=== PATIENT | male | born 1945 | race Caucasian/White ===

== ENCOUNTER 2019-01-15 10:56 | Outpatient (CLI) | payer MEDICARE, OTHER ==
--- NOTE | 2019-01-15 15:51 | XRAY Report ---
Reason: XRAY.. Procedure Date: 01/15/2019 Accession Number: [id number] / [id number] Procedure: XR - Hip w/Pelvis 2-3V RT CPT Code: Final Report FULL RESULT: EXAM: RIGHT HIP RADIOGRAPHY EXAM DATE: 01/15/2019 12:04 PM. CLINICAL HISTORY: Right hip pain since July. COMPARISON: None. TECHNIQUE: 2 views. FINDINGS: Bones: Normal. No fractures or bone lesion. Joints: There is mild joint space narrowing of the femoroacetabular joints with marginal osteophytosis, relatively symmetric as visualized. No dislocation. Sacroiliac joints and pubic symphysis are unremarkable. Soft Tissues: Normal. No soft tissue swelling. IMPRESSION: Mild degenerative disease. RADIA
--- NOTE | 2019-01-15 15:59 | XRAY Report ---
Reason: XRAY Procedure Date: 01/15/2019 Accession Number: [id number] / [id number] Procedure: XR - Lumbar Spine Complete CPT Code: Final Report FULL RESULT: EXAM: LUMBOSACRAL SPINE RADIOGRAPHY EXAM DATE: 01/15/2019 12:04 PM. CLINICAL HISTORY: Pain in low back since July 2018. No known trauma. COMPARISONS: XR LUMBOSACRAL SPINE 4 VIEWS 05/15/2009 8:18 AM. TECHNIQUE: 4 views. FINDINGS: Alignment: No spondylolisthesis or scoliosis. Bones: Five cau-aqc-fjqabxd lumbar vertebral bodies are present. The bones are qualitatively osteopenic; this limits evaluation for underlying fractures or masses. Within these limitations no definite fracture is detected. Disks: There is mild marginal osteophytosis with relative preservation of disk spaces. Facets: There are moderate facet arthropathy changes at L4 and L5. Sacroiliac Joints: Unremarkable. Soft Tissues: Normal. The visualized bowel gas pattern is normal. IMPRESSION: Degenerative changes without overt malalignment or compression fracture. RADIA
== END 2019-01-15 10:57 | disposition home or self-care (01) ==
LOC: DI 10:56
PROVIDERS: ATTEND Internal Medicine
DX: M16.11 Unilateral primary osteoarthritis, right hip (principal); M47.816 Spondylosis without myelopathy or radiculopathy, lumbar region
CPT/HCPCS: 72110

== ENCOUNTER 2020-11-07 14:34 | Outpatient (CLI) | payer MEDICARE, OTHER ==
--- NOTE | 2020-11-07 16:39 | Ultrasound Report ---
PROCEDURE: Retroperitoneal INDICATIONS: URINARY RETENTION TECHNIQUE: Real-time scanning was performed of the kidneys and bladder, with image documentation. COMPARISON: None FINDINGS: Kidneys: Kidneys are normal in size. Right kidney measures 11.5 cm long; left kidney measures 11.7 cm long. Right renal cortical thickness is 0.9 cm; left renal cortical thickness is 1.5 cm. No taisha d masses, hydronephrosis, or nephrolithiasis. 1.4 x 1.2 x 1.5 cm cyst noted in the superior pole of l eft kidney Bladder: Pre-void bladder volume is 384 mL. Post-void residual is 105 mL. Pre-void images demonstr ate no intraluminal masses or stones. On pre-void images, both the right and left ureteral jets are noted with color Doppler interrogation. (Of note, ureteral jets may not be detectable in up to 25% o f cases due to insufficient differences in specific gravity between ureteral and bladder urine). Miscellaneous: No free pelvic fluid. IMPRESSION: 1. Mild right renal cortical atrophy. 2. No hydronephrosis. 3. Large postvoid residual urinary bladder volume of 105 cc. Reviewed by: Komal Knapp MD, PhD on 11/07/2020 4:37 PM PDT Approved by: Komal Knapp MD, PhD on 11/07/2020 4:37 PM PDT Station ID: [id number]
== END 2020-11-07 14:35 | disposition home or self-care (01) ==
LOC: DI 14:34
PROVIDERS: ATTEND Urology
DX: R33.9 Retention of urine, unspecified (principal); N26.1 Atrophy of kidney (terminal)

== ENCOUNTER 2021-07-13 08:50 | Outpatient (CLI) | payer MEDICARE, OTHER ==
--- NOTE | 2021-07-13 09:26 | XRAY Report ---
PROCEDURE: Chest 2 View X-Ray INDICATIONS: PALPITATIONS TECHNIQUE: 2 view(s) of the chest. COMPARISON: December 07, 2012 FINDINGS: SUPPORT DEVICES: None. LUNGS/PLEURA: No focal consolidation, pleural effusion or space-occupying pneumothorax. MEDIASTINUM: The cardiomediastinal silhouette is within normal limits. BONES/SOFT TISSUES: No acute abnormality. Diffuse osteopenia with mild kyphosis. IMPRESSION: 1.No acute cardiopulmonary abnormality. Reviewed by: Khoa Freedman MD on 07/13/2021 9:25 AM PDT Approved by: Khoa Freedman MD on 07/13/2021 9:25 AM PDT Station ID: [id number]
== END 2021-07-13 08:51 | disposition home or self-care (01) ==
LOC: DI 08:50
PROVIDERS: ATTEND Internal Medicine
DX: R00.2 Palpitations (principal)

== ENCOUNTER 2021-09-04 17:06 | Emergency (ER) | payer MEDICARE, OTHER ==
[2021-09-04 17:16] VITALS: BP 137/73
[2021-09-04] MEDS ORDERED: HYDROcod/ACETAM 5/325 MG TABLET PO STA (17:28)
--- NOTE | 2021-09-04 17:29 | ED Physician Documentation ---
PD HPI BACK PAIN - Stated complaint Stated Complaint: FELL OFF LADDER/HEAD INJ/RT SIDE PX - Chief complaint Chief Complaint: Trauma Ch/Bk - History obtained from History obtained from: Patient - Additional information Additional information: Yesterday mid afternoon he was up on a stepstool and missed the last step and came down on his right side. He hit his head but mostly complains of right lateral low rib pain. No other injuries. No headache. Review of Systems Ten Systems: 10 systems reviewed and negative Constitutional: reports: Reviewed and negative Throat: reports: Reviewed and negative Cardiac: reports: Reviewed and negative Respiratory: reports: Reviewed and negative PD PAST MEDICAL HISTORY - Past Medical History Past Medical History: Yes Cardiovascular: Hypertension, High cholesterol Respiratory: None Neuro: Parkinson's Endocrine/Autoimmune: None GI: None : Benign prostate hypertrophy, Kidney stones, Other HEENT: None Psych: None Musculoskeletal: None Derm: Other - Past Surgical History Past Surgical History: Yes General: Colonoscopy HEENT: Tonsil/Adenoidectomy - Present Medications Home Medications: Ambulatory Orders Medication Instructions Recorded Confirmed Carbidopa/Levodopa [Carbidopa-Levo 25 mg PO TID 06/06/14 09/04/21 ER 25-100 Tab] Lisinopril [Zestril] 10 mg PO DAILY 06/06/14 09/04/21 Metoprolol Tartrate 50 mg PO DAILY 06/06/14 09/04/21 Selegiline HCl 5 mg PO DAILY 06/06/14 09/04/21 Tamsulosin [Flomax] 0.4 mg PO DAILY 06/06/14 09/04/21 HYDROcod/ACETAM 5/325 [Lapaz 5/325] 1 - 2 tab PO Q6H PRN #15 tablet 09/04/21 - Allergies Allergies/Adverse Reactions: Allergies Allergy/AdvReac Type Severity Reaction Status Date / Time Sulfa (Sulfonamide Allergy Rash Verified 09/04/21 17:10 Antibiotics) - Social History Does the pt smoke?: No Smoking Status: Never smoker Does the pt drink ETOH?: Yes Does the pt have substance abuse?: No - Immunizations Immunizations are current?: Yes PD ED PE NORMAL - Vitals Vital signs reviewed: Yes - General General: Alert and oriented X 3, Other (Parkinsonian tremor) - HEENT HEENT: Other (Anisocoria, right pupil 3 mm, left pupil 2 mm) - Neck Neck: Supple, no meningeal sign, No bony TTP - Cardiac Cardiac: RRR, No murmur - Respiratory Respiratory: No respiratory distress, Clear bilaterally - Abdomen Abdomen: Normal bowel sounds, Soft, Non tender - Back Back: Other (Mild rib tenderness low down posterior axillary line, no midline spinal tenderness) - Derm Derm: Normal color, Warm and dry - Extremities Extremities: No edema, No calf tenderness / cord - Neuro Neuro: Alert and oriented X 3, Normal speech Results - Vitals Vitals: Vital Signs - 24 hr 09/04/21 17:12 Temperature 36.9 C Heart Rate 65 Respiratory 18 Rate Blood Pressure 137/73 H O2 Saturation 100 Oxygen O2 Source Room air - Rads (name of study) CT of the head and chest without contrast are unremarkable Radiology: EMP read contemporaneously PD MEDICAL DECISION MAKING - ED course ED course: 75-year-old gentleman with a right chest wall contusion, CT negative for rib fracture etc. CT of the head also done because of anisocoria, also no acute findings. Feeling better after hydrocodone here. Given that he is in his 70s and has Parkinson's was advised to abstain from using ladders. Departure - Departure Disposition: Home, Self Care Clinical Impression: Contusion of chest wall, Head injury Condition: Good Record reviewed to determine appropriate education?: Yes Instructions: ED Contusion Chest Wall, ED Mechanical Fall, ED Prevention Fall Prescriptions: HYDROcod/ACETAM 5/325 [Lapaz 5/325] 1 - 2 tab PO Q6H PRN #15 tablet PRN Reason: Pain Comments: I sent your prescriptions electronically to [facility] in [place]. Call your doctor to arrange a follow-up appointment, make the next available appointment. In the interim, return anytime if worse or if new symptoms develop. I am prescribing a short course of narcotic pain medication for you. These are potentially dangerous and addictive medications that should be used carefully. These medications may constipate you. Take an pxiw-nlh-naetrxb stool softener (docusate) twice daily with plenty of water while taking these medications. If you go 24 hours without a bowel movement, take uvpv-hfh-jgcafjv miralax, per package instructions. Do not drink or drive while taking these medications. If you received narcotic or sedating medications while in the emergency department, do not drive for 24 hours. Store this medication in a safe, secure place and out of reach of children. It is a violation of federal law to give or sell this medication to another person or to use in a manner other than prescribed. The ED will not refill narcotic prescriptions, including prescriptions lost or stolen. To dispose of unwanted medications: 1. [facility] at [address] in [place] has a medication drop box. They accept prescription medications (in pill form) Friday through Friday 9:00 a.m. to 5:00 p.m. 2. The [facility] accepts prescription medications (in pill form only) for disposal year round. Call for more information. 3. Contact the [facility] for the next [facility] sponsored prescription drug collection event. , [phone], or [phone]; Note that many narcotic pain relievers also contain Tylenol/acetaminophen. Please ensure that your total dose of acetaminophen from all sources does not exceed 3 g (3000 mg) per day. Discharge Date/Time: 09/04/21 18:25
--- NOTE | 2021-09-04 18:15 | CT Report ---
PROCEDURE: CHEST WO INDICATIONS: R chest injury. TECHNIQUE: Noncontrast 1mm axial images were acquired from the pulmonary apices to the posterior costophrenic an gles. Axial 5 mm soft tissue kernel reconstructions were performed as well as 8 mm axial MIP and cor onal and sagittal 5 mm reformations. For radiation dose reduction, the following was used: automate d exposure control, adjustment of mA and/or kV according to patient size. COMPARISON: None FINDINGS: Image quality: Excellent. Lungs and pleura: No acute air space opacities. 2-3 mm calcified granuloma is noted in the left lowe r lobe. No pleural effusions or pneumothorax. Central and peripheral airways are patent and normal i n caliber. Mediastinum: Heart size is normal. Atherosclerotic calcifications noted in the coronary vasculature. No pericardial effusion. No mediastinal adenopathy by size criteria. Thoracic aorta and central p ulmonary arteries are normal in size. Esophagus is normal in caliber. No hiatal hernia. Bones and chest wall: No suspicious bony lesions. No vertebral body compression fractures. Spine de generative disc disease and facet arthropathy are noted. No axillary or supraclavicular adenopathy by size criteria. The thyroid is normal in size and there are no incidental findings. Abdomen: Visualized upper abdominal solid organs and bowel loops appear normal in the absence of con trast. IMPRESSION: 1. No acute traumatic injury. 2. No pneumothorax. 3. No rib fracture. 4. Aortic injury is not excluded based on a noncontrast CT scan. Reviewed by: Komal Knapp MD, PhD on 09/04/2021 6:14 PM PDT Approved by: Komal Knapp MD, PhD on 09/04/2021 6:14 PM PDT Station ID: [id number]
--- NOTE | 2021-09-04 18:17 | CT Report ---
PROCEDURE: HEAD WO INDICATIONS: head injury TECHNIQUE: Noncontrast 4.5 mm thick angled axial sections acquired from the foramen magnum to the vertex. For r adiation dose reduction, the following was used: automated exposure control, adjustment of mA and/or kV according to patient size. COMPARISON: None. FINDINGS: Image quality: Excellent. CSF spaces: Basal cisterns are patent. No extra-axial fluid collections. Ventricles are normal in size and shape. Brain: No midline shift. No intracranial masses or hemorrhage. Rivers-white matter interface is norm al. Skull and face: Calvarium and visualized facial bones are intact, without suspicious lesions. Sinuses: Visualized sinuses and mastoids are clear. IMPRESSION: No acute intracranial disease process. Reviewed by: Komal Knapp MD, PhD on 09/04/2021 6:16 PM PDT Approved by: Komal Knapp MD, PhD on 09/04/2021 6:16 PM PDT Station ID: [id number]
== END 2021-09-04 18:25 | disposition home or self-care (01) ==
LOC: ED 17:06
DX: S09.90XA Unspecified injury of head, initial encounter (principal); S20.219A Contusion of unspecified front wall of thorax, initial encounter; W11.XXXA Fall on and from ladder, initial encounter; I10 Essential (primary) hypertension
CPT/HCPCS: 70450; 71250; 99283; 99284; A9270

== ENCOUNTER 2022-05-24 07:41 | Day surgery (SDC) | payer MEDICARE, OTHER ==
[2022-05-24] MEDS ORDERED: LACTATED RINGERS 1,000 ML IV ONE (08:08)
[2022-05-24] MEDS ORDERED: PROPOFOL 500 MG/50 ML 500 MG/50 ML VIAL ONE (09:02)
--- NOTE | 2022-05-24 09:14 | ANESTHESIA ---
Pre-Anesthesia VS, & Labs - Diagnosis screening - Procedure colonoscopy Vital Signs: Temp Pulse Resp BP Pulse Ox O2 Flow Rate 36.3 C L 82 16 171/89 H 98 05/24/22 08:08 05/24/22 08:08 05/24/22 08:08 05/24/22 08:08 05/24/22 08:08 Height: 5 ft 10 in Weight (kg): 67 kg Body Mass Index: 21.2 BMI Classification: Normal - NPO >8 hours Home Medications and Allergies Home Medications: Ambulatory Orders Carbidopa/Levodopa 25/100 [Sinemet 25 mg/100 mg] 1.5 tab PO TID 05/21/22 Entacapone [Comtan] 200 mg PO TID 05/21/22 Lisinopril [Zestril] 5 mg PO DAILY 06/06/14 Metoprolol Tartrate 50 mg PO DAILY 06/06/14 Selegiline HCl 5 mg PO DAILY 06/06/14 Tamsulosin [Flomax] 0.4 mg PO DAILY 06/06/14 Carbidopa/Levodopa 25/100 [Sinemet 25 mg/100 mg] 1.5 tab PO TID 05/21/22 Entacapone [Comtan] 200 mg PO TID 05/21/22 Allergies/Adverse Reactions: Allergies Allergy/AdvReac Type Severity Reaction Status Date / Time Sulfa (Sulfonamide Allergy Rash Verified 09/04/21 17:10 Antibiotics) Anes History & Medical History - Anesthetic History Anesthesia Complications: reports: No previous complications - Medical History Cardiovascular: reports: Hypertension, High cholesterol Pulmonary: reports: None Gastrointestinal: reports: Colon polyps, Chronic constipation Urinary: reports: Benign prostate hypertrophy Neuro: reports: Parkinson's Musculoskeletal: reports: None Endocrine/Autoimmune: reports: None Skin: reports: Other Smoking Status: Never smoker - Surgical History General: reports: Colonoscopy Eyes Ears Nose Throat (EENT): reports: Tonsil/Adenoidectomy Exam General: Alert, Oriented x3, Cooperative Dental: Poor dentition Mouth Opening: Greater than 4 Fingerbreadths Neck Mobility: Normal Mallampati classification: II Thyromental Distance: greater than 6 cm Respiratory: Lungs clear Cardiovascular: Regular rate Plan Anesthesia Type: Total IV Consent for Procedure(s) Verified and Reviewed: Yes Code Status: Attempt Resuscitation ASA classification: 3-Severe systemic disease Is this case an emergency?: No
[2022-05-24] MEDS ORDERED: LACTATED RINGERS 600 ML IV ONE (09:57)
--- NOTE | 2022-05-24 10:16 | ANESTHESIA POST OP EVALUATION ---
Anesthesia Post Eval - Post Anesthesia Eval Vitals: Last Vital Signs Temp 36.2 C L 05/24/22 10:12 Pulse 62 05/24/22 10:12 Resp 14 05/24/22 10:12 BP 112/81 H 05/24/22 10:12 Pulse Ox 100 05/24/22 10:12 O2 Flow Rate CV Function Including HR & BP: Stable Pain Control: Satisfactory Nausea & Vomiting: Negative Mental Status: Baseline Respiratory Status: Airway Patent Hydration Status: Satisfactory Anesthesia Complications: None
[2022-05-24 11:00] VITALS: BP 115/73
== END 2022-05-24 07:42 | disposition home or self-care (01) ==
LOC: SDS 07:41
PROVIDERS: ATTEND Surgery
DX: Z12.11 Encounter for screening for malignant neoplasm of colon (principal); I10 Essential (primary) hypertension; G20 Parkinson's disease
CPT/HCPCS: G0121; J7120

== ENCOUNTER 2022-05-27 15:21 | Outpatient (CLI) | payer MEDICARE, OTHER | END 2022-05-27 15:22 | disposition critical access hospital (66) | LOC: EMS 15:21 | DX: R07.9 Chest pain, unspecified (principal); R11.2 Nausea with vomiting, unspecified; I48.91 Unspecified atrial fibrillation | CPT/HCPCS: A0425; A0427 ==

== ENCOUNTER 2022-05-27 15:35 | Inpatient (IN) | payer MEDICARE, OTHER ==
[2022-05-27 16:06] LABS: BASOPHILS # (AUTO) 0.1 10^3/uL (0.0-0.1); BASOPHILS % (AUTO) 0.8 %; EOSINOPHILS # (AUTO) 0.2 10^3/uL (0.0-0.7); EOSINOPHILS % (AUTO) 2.7 %; HCT - HEMATOCRIT 39.7 % (42.0-52.0); HGB - HEMOGLOBIN 12.8 g/dL (14.0-18.0); LYMPHOCYTES # (AUTO) 1.5 10^3/uL (1.5-3.5); LYMPHOCYTES % (AUTO) 22.9 %; MEAN CORPUSCULAR HEMOGLOBIN 30.2 pg (27.0-31.0); MEAN CORPUSCULAR HGB CONC 32.2 g/dL (32.0-36.0); MEAN CORPUSCULAR VOLUME 93.6 fL (80.0-94.0); MEAN PLATELET VOLUME 8.7 fL (7.4-11.4); MONOCYTES # (AUTO) 0.6 10^3/uL (0.0-1.0); MONOCYTES % (AUTO) 8.3 %; NEUTROPHILS # (AUTO) 4.3 10^3/uL (1.5-6.6); PLT - PLATELET COUNT 207 10^3/uL (130-450); RED BLOOD COUNT 4.24 10^6/uL (4.70-6.10); RED CELL DISTRIBUTION WIDTH 12.5 % (12.0-15.0); WHITE BLOOD COUNT 6.6 x10^3/uL (4.8-10.8)
--- NOTE | 2022-05-27 16:07 | XRAY Report ---
PROCEDURE: Chest 1 View X-Ray INDICATIONS: Chest Pain TECHNIQUE: One view of the chest was acquired. COMPARISON: None. FINDINGS: Surgical changes and devices: None. Lungs and pleura: No pleural effusions or pneumothorax. Lungs are clear. Mediastinum: Mediastinal contours appear normal. Heart size is normal. Bones and chest wall: No suspicious bony lesions. Overlying soft tissues appear unremarkable. IMPRESSION: No acute cardiopulmonary process demonstrated radiographically. Reviewed by: Nicholas Rich MD on 05/27/2022 4:06 PM PDT Approved by: Nicholas Rich MD on 05/27/2022 4:06 PM PDT Station ID: [id number]
[2022-05-27 16:19] LABS: ALBUMIN 3.6 g/dL (3.2-5.5); ALBUMIN/GLOBULIN RATIO 1.5 (1.0-2.2); BILIRUBIN,TOTAL 0.7 mg/dL (0.2-1.0); CALCIUM 8.8 mg/dL (8.5-10.3); POTASSIUM 4.2 mmol/L (3.5-5.0)
--- OUTSIDE RECORDS SUMMARY | 2022-05-27 16:29 | EXTERNAL MEDICAL SUMMARY RPT | Continuity of Care Document ---
:1945 Author Organization [facility] Address [address] [place] [address] Phone Care Team Providers Name Role Phone Unavailable Unavailable Unavailable Jesus Patient Registrar, Sacha Unavailable Janet Veras Ma Unavailable Unavailable Jesus Patient Registrar, Sacha Unavailable Garrett Lee Patient Registrar, [place] Unavailable Janet Veras Ma Unavailable Unavailable Allergies No information. Encounters No information. Functional Status No information. Immunizations No information. Medications date description facility 2022-05-01 00:00 tamsulosin All 2022-05-01 00:00 tamsulosin All 2022-05-01 00:00 tamsulosin All 2022-05-01 00:00 tamsulosin All 2022-05-02 00:00 tamsulosin All 2022-05-01 00:00 tamsulosin All 2022-05-01 00:00 tamsulosin All 2022-05-01 00:00 tamsulosin All 2022-05-01 00:00 tamsulosin All 2022-05-02 00:00 tamsulosin All 2022-05-01 00:00 peg 3350-electrolytes All 2022-05-01 00:00 peg 3350-electrolytes All 2022-05-01 00:00 peg 3350-electrolytes All 2022-05-01 00:00 peg 3350-electrolytes All 2022-05-01 00:00 tamsulosin All 2022-05-01 00:00 tamsulosin All 2022-05-01 00:00 tamsulosin All 2022-05-01 00:00 tamsulosin All 2022-05-02 00:00 tamsulosin All 2022-05-01 00:00 tamsulosin All 2022-05-01 00:00 tamsulosin All 2022-05-01 00:00 tamsulosin All 2022-05-01 00:00 tamsulosin All 2022-05-02 00:00 tamsulosin All 2022-05-01 00:00 peg 3350-electrolytes All 2022-05-01 00:00 peg 3350-electrolytes All 2022-05-01 00:00 peg 3350-electrolytes All 2022-05-01 00:00 peg 3350-electrolytes All 2022-05-01 00:00 carbidopa-levodopa All 2022-05-01 00:00 carbidopa-levodopa All 2022-05-01 00:00 carbidopa-levodopa All 2022-05-01 00:00 carbidopa-levodopa All 2022-05-02 00:00 carbidopa-levodopa All Problems No information. Procedures date description facility 2022-05-01 00:00 Visit Code Hold All 2022-05-01 00:00 Visit Code Hold All 2022-05-01 00:00 Visit Code Hold All Results/Labs No information. Social History No information. Vital Signs date measurement value units 2022-05-01 00:00 BMI 21.60 kg/m2 2022-05-01 00:00 BP_diastolic 89 mmHg 2022-05-01 00:00 BP_systolic 158 mmHg 2022-05-01 00:00 heart_rate 72 /min 2022-05-01 00:00 height_metric 177.8 cm 2022-05-01 00:00 height_standard 70 in 2022-05-01 00:00 respiration_rate 16 /min 2022-05-01 00:00 temperature_metric 36.56 C 2022-05-01 00:00 temperature_standard 97.8 F 2022-05-01 00:00 weight_metric 68.04 kg 2022-05-01 00:00 weight_standard 150 lb
[2022-05-27] MEDS ORDERED: diltiaZEM INJ 5 MG/ML VIAL IVP STA ×2 (17:05→20:30)
--- NOTE | 2022-05-27 17:08 | ED Physician Documentation ---
History of Present Illness - Stated complaint Stated Complaint: CP - Chief complaint Chief Complaint: Cardiac - History obtained from History obtained from: Patient, EMS - History of Present Illness Timing: Today Pain level max: 3 Pain level now: 0 - Additonal information Additional information: 76-year-old male with a history of hypertension and Parkinson's disease presents to the emergency department stating that about 3 hours prior to arrival he had about 20 minutes worth of epigastric/lower chest pain. Described as a squeezing. Nothing made it better or worse. No difficulty breathing. No nausea or vomiting. No sweating. Has not had similar symptoms previously. Patient was found to be in atrial fibrillation with rapid ventricular response. He denies any history of A-fib. Currently asymptomatic. He is not on blood thinners. Review of Systems Constitutional: denies: Fever, Chills Nose: denies: Rhinorrhea / runny nose, Congestion GI: denies: Vomiting Skin: denies: Rash Musculoskeletal: denies: Neck pain, Back pain Neurologic: denies: Headache PD PAST MEDICAL HISTORY - Past Medical History Cardiovascular: Hypertension, High cholesterol Respiratory: None Neuro: Parkinson's Endocrine/Autoimmune: None GI: Colon polyps, Chronic constipation : Benign prostate hypertrophy HEENT: None Psych: None Musculoskeletal: None Derm: Other - Past Surgical History Past Surgical History: Yes General: Colonoscopy HEENT: Tonsil/Adenoidectomy - Present Medications Home Medications: Ambulatory Orders Medication Instructions Recorded Confirmed Lisinopril [Zestril] 5 mg PO DAILY 06/06/14 05/24/22 Metoprolol Tartrate 50 mg PO DAILY 06/06/14 05/24/22 Selegiline HCl 5 mg PO DAILY 06/06/14 05/24/22 Tamsulosin [Flomax] 0.4 mg PO DAILY 06/06/14 05/24/22 Carbidopa/Levodopa 25/100 [Sinemet 1.5 tab PO TID 05/21/22 05/24/22 25 mg/100 mg] Entacapone [Comtan] 200 mg PO TID 05/21/22 05/24/22 - Allergies Allergies/Adverse Reactions: Allergies Allergy/AdvReac Type Severity Reaction Status Date / Time Sulfa (Sulfonamide Allergy Rash Verified 05/27/22 15:47 Antibiotics) - Social History Does the pt smoke?: No Smoking Status: Never smoker Does the pt drink ETOH?: Yes Does the pt have substance abuse?: No - Immunizations Immunizations are current?: Yes PD ED PE NORMAL - Vitals Vital signs reviewed: Yes - General General: Alert and oriented X 3, No acute distress - HEENT HEENT: Moist mucous membranes - Neck Neck: Supple, no meningeal sign - Cardiac Cardiac: Strong equal pulses, Other (Irregularly irregular) - Respiratory Respiratory: No respiratory distress, Clear bilaterally - Abdomen Abdomen: Soft, Non tender, Non distended - Derm Derm: Warm and dry - Neuro Neuro: Alert and oriented X 3 - Psych Psych: Normal mood, Normal affect Results - Vitals Vitals: Vital Signs - 24 hr 05/27/22 05/27/22 05/27/22 15:47 16:15 17:13 Temperature 36.7 C Heart Rate 138 H 145 H 95 Respiratory 20 10 L 19 Rate Blood Pressure 123/90 H 116/85 H 95/57 L O2 Saturation 100 100 100 05/27/22 19:00 Temperature Heart Rate 142 H Respiratory 14 Rate Blood Pressure 107/77 O2 Saturation 99 Oxygen O2 Source Room air - EKG (time done) 1542 EKG releavant findings:: EKG personally interpreted by author of this note. Relevant findings are: Rate: Rate (enter#) (143) Rhythm: Atrial fibrillation [place]: Normal QRS: Normal Ischemia: Normal ST segments - Labs Labs: Laboratory Tests 05/27/22 05/27/22 05/27/22 16:01 16:01 16:01 WBC 6.6 RBC 4.24 L Hgb 12.8 L Hct 39.7 L MCV 93.6 MCH 30.2 MCHC 32.2 RDW 12.5 Plt Count 207 MPV 8.7 Neut # (Auto) 4.3 Lymph # (Auto) 1.5 [place] # (Auto) 0.6 Eos # (Auto) 0.2 Baso # (Auto) 0.1 Absolute Nucleated RBC 0.00 Nucleated RBC % 0.0 D-Dimer Sodium 141 Potassium 4.2 Chloride 107 Carbon Dioxide 29 Anion Gap 5.0 L BUN 14 Creatinine 1.0 Estimated GFR (MDRD) 73 L Glucose 112 H Calcium 8.8 Total Bilirubin 0.7 AST 22 ALT 10 Alkaline Phosphatase 42 Troponin I High Sens 5.4 Total Protein 6.0 L Albumin 3.6 Globulin 2.4 Albumin/Globulin Ratio 1.5 Lipase 42 05/27/22 05/27/22 16:01 18:45 WBC RBC Hgb Hct MCV MCH MCHC RDW Plt Count MPV Neut # (Auto) Lymph # (Auto) [place] # (Auto) Eos # (Auto) Baso # (Auto) Absolute Nucleated RBC Nucleated RBC % D-Dimer 251.1 Sodium Potassium Chloride Carbon Dioxide Anion Gap BUN Creatinine Estimated GFR (MDRD) Glucose Calcium Total Bilirubin AST ALT Alkaline Phosphatase Troponin I High Sens 16.0 Total Protein Albumin Globulin Albumin/Globulin Ratio Lipase - Rads (name of study) Chest x-ray Relevant Findings:: Final report received, See rad report PD Medical Decision Making - ED course Complexity details: reviewed results, re-evaluated patient, considered differential (No ST elevation CA, no aortic dissection, no PE, no tension pneumothorax, no aortic aneurysm), d/w patient, d/w personal consultant ED course: 76-year-old male with a history of Parkinson's presents to the emergency department with new onset atrial fibrillation with rapid ventricular response. He did respond to diltiazem but did end up requiring a diltiazem drip for continued rate control. Negative high-sensitivity troponin x2. No significant electrolyte abnormalities. No significant abnormalities other than a mild anemia on CBC. D-dimer is negative for age-adjusted. Due to the continued need for diltiazem drip, we will admit the patient for further care. Discussed the case with the hospitalist, who accepts. This document was made in part using voice recognition software. While efforts are made to proofread this document, sound alike and grammatical errors may occur. Departure - Departure Disposition: 66 [facility] DC/Xfer Clinical Impression: New onset a-fib, Atrial fibrillation with RVR Condition: Stable Discharge Date/Time: 05/27/22 22:46
[2022-05-27] MEDS ORDERED: diltiaZEM INJ 125 MG in DEXTROSE 5% 100 ML IV STA (20:30)
[2022-05-27] MEDS ORDERED: diltiaZEM INJ 5 MG/ML VIAL ONE (20:36)
[2022-05-27] MEDS ORDERED: HYDROcod/ACETAM 10 MG/325 MG TABLET PO PRN (21:09)
[2022-05-27] MEDS ORDERED: IBUPROFEN 400 MG TABLET PO PRN (21:09)
[2022-05-27] MEDS ORDERED: ONDANSETRON 4 MG/2 ML VIAL IVP PRN (21:09)
[2022-05-27] MEDS ORDERED: SODIUM CHLORIDE FLUSH 0.9% 10 ML SYRINGE IVP PRN (21:09)
[2022-05-27] MEDS ORDERED: ACETAMINOPHEN 325 MG TABLET PO PRN (21:09)
--- NOTE | 2022-05-27 21:22 | HISTORY & PHYSICAL EXAMINATION ---
Chief Complaint - Chief Complaint Chief Complaint: Irregular heart feat, Palpitations, weakness and generalized fatigue History of Present Illness - Admitted From Admitted From:: Home - History Obtained From Records Reviewed: Yes History obtained from: Patient and Staff from ER Exam Limitations: Telemeedicine - History of Present Illness HPI Comment/Other: 76-year-old male with a history of hypertension and Parkinson's disease presents to the emergency department stating that about 3 hours prior to arrival he had a bout 20 minutes worth of epigastric/lower chest pain. Described as a squeezing. Nothing made it better or worse. No difficulty breathing. No nausea or vomiting. No sweating. Has not had similar symptoms previously. Patient was found to be in atrial fibrillation with rapid ventricular response. He denies any history of A-fib. Currently asymptomatic. He is not on blood thinner. Stacey johnson with his , no major cardiac issues in past and no medical prolem in past, feels well. used to work in [employer] , has 2 kids yr and 31 year, is doig well with no other concerns or complaints History - Past Medical History Cardiovascular: reports: Hypertension, High cholesterol Respiratory: reports: None Neuro: reports: Parkinson's Endocrine/Autoimmune: reports: None GI: reports: Colon polyps, Chronic constipation : reports: Benign prostate hypertrophy HEENT: reports: None Psych: reports: None Musculoskeletal: reports: None Derm: reports: Other MRSA Hx?: No - Past Surgical History General: reports: Colonoscopy HEENT: reports: Tonsil/Adenoidectomy Meds/Allgy - Home Medications Home Medications: Ambulatory Orders Medication Instructions Recorded Confirmed Lisinopril [Zestril] 5 mg PO DAILY 06/06/14 05/24/22 Metoprolol Tartrate 50 mg PO DAILY 06/06/14 05/24/22 Selegiline HCl 5 mg PO DAILY 06/06/14 05/24/22 Tamsulosin [Flomax] 0.4 mg PO DAILY 06/06/14 05/24/22 Carbidopa/Levodopa 25/100 [Sinemet 1.5 tab PO TID 05/21/22 05/24/22 25 mg/100 mg] Entacapone [Comtan] 200 mg PO TID 05/21/22 05/24/22 - Allergies Allergies/Adverse Reactions: Allergies Allergy/AdvReac Type Severity Reaction Status Date / Time Sulfa (Sulfonamide Allergy Rash Verified 05/27/22 15:47 Antibiotics) Review of Systems - Constitutional Constitutional: reports: Fatigue, Fever, Weakness - Cardiovascular Cariovascular: reports: Palpitations, Chest pain Prior Level of Functionality: Patietn is independent Exam - Vital Signs Vital Signs: Vital Signs x48h Temp Pulse Resp BP Pulse Ox 05/27/22 19:00 142 H 14 107/77 99 05/27/22 17:13 95 19 95/57 L 100 05/27/22 16:15 145 H 10 L 116/85 H 100 05/27/22 15:47 36.7 C 138 H 20 123/90 H 100 - Physical Exam General Appearance: positive: No acute distress, Alert Eyes Bilateral: positive: Normal inspection ENT: positive: ENT inspection nml, Pharynx nml Neck: positive: Nml inspection, Thyroid nml Respiratory: positive: Chest non-tender, No respiratory distress, Breath sounds nml Cardiovascular: positive: Regular rate & rhythm, No murmur, No gallop, Irregularly irregular, Tachycardia Conclusion/Plan - Lab Results Fish Bones: 05/27/22 16:01 05/27/22 16:01
--- NOTE | 2022-05-27 21:48 | PROVIDER PROGRESS NOTE ---
Objective - Vital Signs/Intake & Output Vital Signs: Vital Signs x48h Temp Pulse Resp BP Pulse Ox 05/27/22 19:00 142 H 14 107/77 99 05/27/22 17:13 95 19 95/57 L 100 05/27/22 16:15 145 H 10 L 116/85 H 100 05/27/22 15:47 36.7 C 138 H 20 123/90 H 100 - Lab Results Fish Bones: 05/27/22 16:01 05/27/22 16:01 Other Labs: Lab Results x24hrs 05/27/22 05/27/22 05/27/22 Range/Units 18:45 16:01 16:01 WBC (4.8-10.8) x10^3/uL RBC (4.70-6.10) 10^6/uL Hgb (14.0-18.0) g/dL Hct (42.0-52.0) % MCV (80.0-94.0) fL MCH (27.0-31.0) pg MCHC (32.0-36.0) g/dL RDW (12.0-15.0) % Plt Count (130-450) 10^3/uL MPV (7.4-11.4) fL Neut # (Auto) (1.5-6.6) 10^3/uL Lymph # (Auto) (1.5-3.5) 10^3/uL [place] # (Auto) (0.0-1.0) 10^3/uL Eos # (Auto) (0.0-0.7) 10^3/uL Baso # (Auto) (0.0-0.1) 10^3/uL Absolute Nucleated RBC x10^3/uL Nucleated RBC % /100WBC D-Dimer 251.1 (200.0-255.0) ng/mL Sodium (135-145) mmol/L Potassium (3.5-5.0) mmol/L Chloride (101-111) mmol/L Carbon Dioxide (21-32) mmol/L Anion Gap (6-13) BUN (6-20) mg/dL Creatinine (0.6-1.2) mg/dL Estimated GFR (MDRD) (>89) Glucose (70-100) mg/dL Calcium (8.5-10.3) mg/dL Total Bilirubin (0.2-1.0) mg/dL AST (10-42) IU/L ALT (10-60) IU/L Alkaline Phosphatase (42-121) IU/L Troponin I High Sens 16.0 5.4 (2.3-19.7) ng/L Total Protein (6.7-8.2) g/dL Albumin (3.2-5.5) g/dL Globulin (2.1-4.2) g/dL Albumin/Globulin Ratio (1.0-2.2) Lipase (22-51) U/L 05/27/22 05/27/22 Range/Units 16:01 16:01 WBC 6.6 (4.8-10.8) x10^3/uL RBC 4.24 L (4.70-6.10) 10^6/uL Hgb 12.8 L (14.0-18.0) g/dL Hct 39.7 L (42.0-52.0) % MCV 93.6 (80.0-94.0) fL MCH 30.2 (27.0-31.0) pg MCHC 32.2 (32.0-36.0) g/dL RDW 12.5 (12.0-15.0) % Plt Count 207 (130-450) 10^3/uL MPV 8.7 (7.4-11.4) fL Neut # (Auto) 4.3 (1.5-6.6) 10^3/uL Lymph # (Auto) 1.5 (1.5-3.5) 10^3/uL [place] # (Auto) 0.6 (0.0-1.0) 10^3/uL Eos # (Auto) 0.2 (0.0-0.7) 10^3/uL Baso # (Auto) 0.1 (0.0-0.1) 10^3/uL Absolute Nucleated RBC 0.00 x10^3/uL Nucleated RBC % 0.0 /100WBC D-Dimer (200.0-255.0) ng/mL Sodium 141 (135-145) mmol/L Potassium 4.2 (3.5-5.0) mmol/L Chloride 107 (101-111) mmol/L Carbon Dioxide 29 (21-32) mmol/L Anion Gap 5.0 L (6-13) BUN 14 (6-20) mg/dL Creatinine 1.0 (0.6-1.2) mg/dL Estimated GFR (MDRD) 73 L (>89) Glucose 112 H (70-100) mg/dL Calcium 8.8 (8.5-10.3) mg/dL Total Bilirubin 0.7 (0.2-1.0) mg/dL AST 22 (10-42) IU/L ALT 10 (10-60) IU/L Alkaline Phosphatase 42 (42-121) IU/L Troponin I High Sens (2.3-19.7) ng/L Total Protein 6.0 L (6.7-8.2) g/dL Albumin 3.6 (3.2-5.5) g/dL Globulin 2.4 (2.1-4.2) g/dL Albumin/Globulin Ratio 1.5 (1.0-2.2) Lipase 42 (22-51) U/L
[2022-05-27] MEDS: CARBIDOPA/LEVODOPA 25 MG/100 MG TABLET PO SCH (23:17)
[2022-05-27] MEDS: SODIUM CHLORIDE 0.9% 1,000 ML IV SCH (23:18)
[2022-05-27] MEDS: SODIUM CHLORIDE FLUSH 0.9% 10 ML SYRINGE IVP SCH (23:28)
[2022-05-28] MEDS: CARBIDOPA/LEVODOPA 25 MG/100 MG TABLET PO SCH ×3 (05:45→23:04)
[2022-05-28] MEDS: diltiaZEM 30 MG TABLET PO SCH ×4 (05:45→17:41)
[2022-05-28] MEDS: SODIUM CHLORIDE FLUSH 0.9% 10 ML SYRINGE IVP SCH ×2 (08:25→17:41)
[2022-05-28] MEDS: SODIUM CHLORIDE 0.9% 1,000 ML IV SCH (08:25)
[2022-05-28] MEDS: TAMSULOSIN 0.4 MG CAPSULE PO SCH (08:25)
[2022-05-28] MEDS ORDERED: SODIUM CHLORIDE 0.9% 1,000 ML IV SCH (08:30)
[2022-05-28 08:55] LABS: CALCIUM 8.4 mg/dL (8.5-10.3); MAGNESIUM 2.2 mg/dL (1.7-2.8); POTASSIUM 3.8 mmol/L (3.5-5.0)
[2022-05-28] MEDS ORDERED: lisinopriL 5 MG TABLET PO SCH (09:00)
[2022-05-28] MEDS ORDERED: METOPROLOL TARTRATE 25 MG TABLET PO SCH (09:00)
[2022-05-28] MEDS ORDERED: METOPROLOL TARTRATE 50 MG TABLET PO SCH (09:00)
[2022-05-28] MEDS ORDERED: SELEGILINE HCL 5 MG PO SCH ×2 (09:00→11:09)
[2022-05-28] MEDS: SELEGILINE HCL 5 MG PO SCH ×2 (11:20→21:03)
--- NOTE | 2022-05-28 15:22 | PHARMACY PROGRESS NOTE ---
- Best Possible Medication History Admit Date and Time: 05/27/222109 Processed by: Pharmacy Medication History completed: Yes Patient Interview: Completed Secondary Source(s): Pharmacy records As the person ultimately responsible for medication therapy, providers are able to order a medication from an existing home medication list in [facility] via the "Reconcile Routine" prior to Confirmation of that medication by operations support analyst. Such practice is discouraged except when the physician, in their clinical judgment, deems that a medical need exists for a medication without regard to previous use.
--- NOTE | 2022-05-28 17:55 | PROVIDER PROGRESS NOTE ---
Assessment/Plan - Problem List (1) New onset a-fib Assessment/Plan: This was new onset of A-fib, and the heart rate was elevated. He has been started on heart rate-slowing medications. Troponins were normal. His TSH was normal. The heart rate slowed in Afib, on new Cardizem plus his Metoprolol med. This afternoon he converted to normal sinus rhythm Plan: We will continue new Cardizem but change it to CD Continue with metoprolol Awaiting Echocardiogram result to adjust his medications and devise a plan Continue on telemetry 2 Chest pain This was his presenting complaint. His troponins are normal x3. Plan: We will recheck his EKG now that he is converted to sinus rhythm, check for ischemic changes We could do a treadmill stress test with Echo as an inpt, or he would have to be scheduled to have outpt stress testing. I discussed options, pros and cons with patient and he wants to do stress test while here. Will order a stress Echo to be done tomorrow. We have no nuclear medicine service here at all anymore. 3. Parkinson's disease Plan: We have resumed his usual Parkinson's meds that he takes at home 4. HTN Patient was on metoprolol and lisinopril. Also his BPH med brings down his blood pressure Plan: Since Cardizem was added here, we will continue with metoprolol and his BPH med, but hold the lisinopril until we know his EF by Echo - Current Meds Current Meds: Current Medications Generic Name Dose Route Start Last Admin Trade Name Freq PRN Reason Stop Dose Admin Carbidopa/Levodopa 1.5 tab 05/27/22 22:00 05/28/22 14:16 Carbidopa/Levodopa 25 Mg/100 Mg Tablet PO 1.5 tab TID HILDA Administration Diltiazem HCl 30 mg 05/28/22 00:00 05/28/22 17:41 Diltiazem 30 Mg Tablet PO 30 mg Q6HR HILDA Administration Metoprolol Tartrate 25 mg 05/28/22 09:00 05/28/22 08:38 Metoprolol Tartrate 25 Mg Tablet PO 25 mg BID HILDA Administration Selegiline Hcl [ 1 each 05/28/22 11:20 05/28/22 11:20 Selegiline Hcl] 5 Mg PO 1 each Capsule BID HILDA Administration Sodium Chloride 10 ml 05/28/22 01:00 05/28/22 17:41 Sodium Chloride Flush 0.9% 10 Ml Syringe IVP 10 ml 0100,0900,1700 HILDA Administration Tamsulosin HCl 0.4 mg 05/28/22 09:00 05/28/22 08:25 Tamsulosin 0.4 Mg Capsule PO 0.4 mg DAILY HILDA Administration - Lab Result Fish Bone Diagrams: 05/27/22 16:01 05/28/22 08:38 - EKG Results EKG Interpreted Independently: Yes EKG Comparison: Changed from prior EKG EKG Findings: Normal sinus rhythm, rate 70, borderline low voltage. Since EKG from previous day, A-fib is no longer present. - Additional Planning My Orders: My Active Orders 05/28/22 08:28 Echo Transthoracic Complete [ECHO] Routine 05/28/22 09:00 Metoprolol Tartrate [Lopressor] 25 mg PO BID Subjective - Subjective Patient Reports: No Complaints (He does not feel any palpitations. Has had no CP since the one episode before admission.) Objective Vital Signs: Vital Signs - 24 hr 05/27/22 05/27/22 05/27/22 19:00 22:50 23:31 Temperature 36.5 C Heart Rate 142 H Heart Rate [ 77 Brachial] Heart Rate [ Monitoring electrodes] Respiratory 14 16 Rate Blood Pressure 107/77 147/88 H Blood Pressure 147/88 H [Right Brachial artery] Blood Pressure [Right Radial artery] O2 Saturation 99 100 05/28/22 05/28/22 05/28/22 05:44 05:45 07:43 Temperature 36.3 C L 36.7 C Heart Rate Heart Rate [ 84 90 Brachial] Heart Rate [ Monitoring electrodes] Respiratory 18 18 Rate Blood Pressure 136/79 H Blood Pressure [Right Brachial artery] Blood Pressure 136/79 H 106/72 [Right Radial artery] O2 Saturation 97 98 05/28/22 05/28/22 05/28/22 08:38 11:20 12:29 Temperature 37 C 36.3 C L Heart Rate Heart Rate [ 81 Brachial] Heart Rate [ 64 Monitoring electrodes] Respiratory 16 20 Rate Blood Pressure 105/59 L Blood Pressure [Right Brachial artery] Blood Pressure 105/59 L 113/75 [Right Radial artery] O2 Saturation 104 H 100 05/28/22 05/28/22 05/28/22 15:59 17:40 17:41 Temperature 36.5 C Heart Rate Heart Rate [ 61 Brachial] Heart Rate [ 68 Monitoring electrodes] Respiratory 18 Rate Blood Pressure 107/62 Blood Pressure [Right Brachial artery] Blood Pressure 105/60 107/62 [Right Radial artery] O2 Saturation 97 Oxygen O2 Source Room air I&O (Last 24 Hrs): Intake and Output Totals x24h 05/26/22 05/27/22 05/28/22 23:59 23:59 23:59 Intake Total 1621.667 Balance 1621.667 General: Alert, Oriented x3, Other (Bradykinetic and flat affect, no tremor. Male pattern baldness. Tall and lanky man.) HEENT: Atraumatic, Other Neck: Supple, No JVD Neuro: Alert, Non Focal, Other (Bradykinetic, flat affect and facie, no tremor, speech is slow.) Cardiovascular: No murmurs, Other (distant heart sounds) Respiratory: No respiratory distress, Breath sounds nml Abdomen: Soft, No tenderness Extremities: No clubbing, No edema, No tenderness/swelling - Results Results: Laboratory Results WBC 6.6 x10^3/uL (4.8-10.8) 05/27/22 16:01 RBC 4.24 10^6/uL (4.70-6.10) L 05/27/22 16:01 Hgb 12.8 g/dL (14.0-18.0) L 05/27/22 16:01 Hct 39.7 % (42.0-52.0) L 05/27/22 16:01 MCV 93.6 fL (80.0-94.0) 05/27/22 16:01 MCH 30.2 pg (27.0-31.0) 05/27/22 16:01 MCHC 32.2 g/dL (32.0-36.0) 05/27/22 16:01 RDW 12.5 % (12.0-15.0) 05/27/22 16:01 Plt Count 207 10^3/uL (130-450) 05/27/22 16:01 MPV 8.7 fL (7.4-11.4) 05/27/22 16:01 Neut # (Auto) 4.3 10^3/uL (1.5-6.6) 05/27/22 16:01 Lymph # (Auto) 1.5 10^3/uL (1.5-3.5) 05/27/22 16:01 [place] # (Auto) 0.6 10^3/uL (0.0-1.0) 05/27/22 16:01 Eos # (Auto) 0.2 10^3/uL (0.0-0.7) 05/27/22 16:01 Baso # (Auto) 0.1 10^3/uL (0.0-0.1) 05/27/22 16:01 Absolute Nucleated RBC 0.00 x10^3/uL 05/27/22 16:01 Nucleated RBC % 0.0 /100WBC 05/27/22 16:01 D-Dimer 251.1 ng/mL (200.0-255.0) 05/27/22 16:01 Sodium 138 mmol/L (135-145) 05/28/22 08:38 Potassium 3.8 mmol/L (3.5-5.0) 05/28/22 08:38 Chloride 106 mmol/L (101-111) 05/28/22 08:38 Carbon Dioxide 23 mmol/L (21-32) 05/28/22 08:38 Anion Gap 9.0 (6-13) 05/28/22 08:38 BUN 17 mg/dL (6-20) 05/28/22 08:38 Creatinine 1.0 mg/dL (0.6-1.2) 05/28/22 08:38 Estimated GFR (MDRD) 73 (>89) L 05/28/22 08:38 Glucose 153 mg/dL (70-100) H 05/28/22 08:38 Calcium 8.4 mg/dL (8.5-10.3) L 05/28/22 08:38 Magnesium 2.2 mg/dL (1.7-2.8) 05/28/22 08:38 Total Bilirubin 0.7 mg/dL (0.2-1.0) 05/27/22 16:01 AST 22 IU/L (10-42) 05/27/22 16:01 ALT 10 IU/L (10-60) 05/27/22 16:01 Alkaline Phosphatase 42 IU/L (42-121) 05/27/22 16:01 Troponin I High Sens 11.3 ng/L (2.3-19.7) 05/28/22 08:38 Total Protein 6.0 g/dL (6.7-8.2) L 05/27/22 16:01 Albumin 3.5 g/dL (3.2-5.5) 05/28/22 08:38 Globulin 2.4 g/dL (2.1-4.2) 05/27/22 16:01 Albumin/Globulin Ratio 1.5 (1.0-2.2) 05/27/22 16:01 Lipase 42 U/L (22-51) 05/27/22 16:01 TSH 1.69 uIU/mL (0.34-5.60) 05/28/22 08:38 - Procedures Procedures: Procedures BLADDER SPHINCTEROTOMY (06/06/14) INJECT CA CHEMOTHER NEC (06/06/14) OTHER INSTILLATION (06/06/14) TU DESTRUC BLADD LES NEC (06/06/14)
[2022-05-28] MEDS ORDERED: diltiaZEM 30 MG TABLET PO SCH ×3 (17:56)
[2022-05-28] MEDS ORDERED: diltiaZEM 30 MG TABLET PO ONE (23:30)
[2022-05-29] MEDS ORDERED: diltiaZEM 30 MG TABLET PO SCH (00:01)
[2022-05-29] MEDS: SODIUM CHLORIDE FLUSH 0.9% 10 ML SYRINGE IVP SCH ×3 (01:00→21:08)
[2022-05-29] MEDS: CARBIDOPA/LEVODOPA 25 MG/100 MG TABLET PO SCH ×3 (05:57→21:07)
[2022-05-29] MEDS: TAMSULOSIN 0.4 MG CAPSULE PO SCH (08:47)
[2022-05-29] MEDS: METOPROLOL SUCCINATE 50 MG TABLET PO SCH ×2 (08:47→14:56)
[2022-05-29] MEDS ORDERED: diltiaZEM CD 120 MG CAPSULE PO SCH (09:00)
[2022-05-29] MEDS: SELEGILINE HCL 5 MG PO SCH ×2 (09:44→21:07)
[2022-05-29] MEDS: diltiaZEM CD 120 MG CAPSULE PO SCH (13:57)
--- NOTE | 2022-05-29 17:15 | PROVIDER PROGRESS NOTE ---
Assessment/Plan - Problem List (1) New onset a-fib Assessment/Plan: (1) New onset a-fib Assessment/Plan: This was new onset of A-fib, and the heart rate was elevated. He has been started on heart rate-slowing medications. Troponins were normal. His TSH was normal. The heart rate slowed in Afib, on Cardizem plus Metoprolol meds. Yesterday he converted to normal sinus rhythm and has remained in NSR. No a.m. Cardizem or Metoprolol were given, so he can reach target HR, when doing a treadmill stress test later today. A resting Echocardiogram w/ Doppler showed normal LV function at rest. Plan: Continue new Cardizem, which was changed to CD Continue with metoprolol His CHADS score is low, an ASA daily will be advised, as stroke prophylaxis. Continue on telemetry 2 Chest pain This was his presenting complaint. It was new onset CP. His troponins were normal x3. Plan: He and I discussed doing a treadmill stress test with Echo as an inpt, or joseph cannon outpt stress test, and he chose to proceed with stress test while he is here. Therefore no a.m. Cardizem or Metoprolol were given, so he can reach target HR, when doing a treadmill stress test later today. 3. Parkinson's disease Plan: We have resumed his usual Parkinson's meds that he takes at home 4. HTN Patient was on metoprolol and lisinopril. Also his BPH med brings down his blood pressure Plan: Since Cardizem was added here, we will continue with metoprolol and his BPH med, but hold the Lisinopril since it is not needed for systolic function, since Echo showed a normal LVEF and his current med combination is controlling his BP. If we resume Lisinopril, I suspect BP would be too low. - Current Meds Current Meds: Current Medications Generic Name Dose Route Start Last Admin Trade Name Dary PRN Reason Stop Dose Admin Carbidopa/Levodopa 1.5 tab 05/27/22 22:00 05/29/22 14:56 Carbidopa/Levodopa 25 Mg/100 Mg Tablet PO 1.5 tab TID HILDA Administration Diltiazem HCl 120 mg 05/29/22 12:00 05/29/22 13:57 Diltiazem Cd 120 Mg Capsule PO 120 mg 1200 HILDA Administration Metoprolol Succinate 50 mg 05/29/22 09:00 05/29/22 14:56 Metoprolol Succinate 50 Mg Tablet PO 50 mg DAILY HILDA Administration Selegiline Hcl [ 1 each 05/28/22 11:20 05/29/22 09:44 Selegiline Hcl] 5 Mg PO 1 each Capsule BID HILDA Administration Sodium Chloride 10 ml 05/28/22 01:00 05/29/22 08:47 Sodium Chloride Flush 0.9% 10 Ml Syringe IVP 10 ml 0100,0900,1700 HILDA Administration Tamsulosin HCl 0.4 mg 05/28/22 09:00 05/29/22 08:47 Tamsulosin 0.4 Mg Capsule PO 0.4 mg DAILY HILDA Administration - Lab Result Fish Bone Diagrams: 05/27/22 16:01 05/28/22 08:38 - Additional Planning My Orders: My Active Orders 05/28/22 17:57 Telemetry- [RC] Q4HR 05/28/22 18:20 RN to Reorder Previous Diet [RC] .ONCE 05/29/22 08:00 Stress Echo [ECHO] Routine 05/29/22 09:00 Metoprolol Succinate [Toprol Xl] 50 mg PO DAILY 05/29/22 09:32 Miscellaenous Nursing Order [RC] QSHIFT 05/29/22 10:32 RN to Reorder Previous Diet [RC] .ONCE 05/29/22 Lunch Cardiac Diet [DIET] 05/29/22 12:00 diltiaZEM CD [Cardizem Cd] 120 mg PO 1200 Subjective - Subjective Patient Reports: Resting Comfortably, No Complaints (He is NPO awaiting a stress test with Echo sometime today.) Objective Vital Signs: Vital Signs - 24 hr 05/28/22 05/28/22 05/28/22 17:40 17:41 21:00 Temperature 36.9 C Heart Rate [ Brachial] Heart Rate [ 68 68 Monitoring electrodes] Respiratory 18 Rate Blood Pressure 107/62 Blood Pressure 131/76 H [Right Brachial artery] Blood Pressure 107/62 [Right Radial artery] O2 Saturation 100 05/28/22 05/29/22 05/29/22 23:04 00:15 03:35 Temperature 36.4 C L 36.5 C Heart Rate [ Brachial] Heart Rate [ 72 80 Monitoring electrodes] Respiratory 18 18 Rate Blood Pressure 142/82 H Blood Pressure 154/83 H 123/91 H [Right Brachial artery] Blood Pressure [Right Radial artery] O2 Saturation 98 98 05/29/22 05/29/22 05/29/22 07:46 08:50 13:02 Temperature 36.5 C 36.4 C L Heart Rate [ 77 Brachial] Heart Rate [ 71 68 Monitoring electrodes] Respiratory 20 18 Rate Blood Pressure Blood Pressure 138/79 H 145/82 H 165/84 H [Right Brachial artery] Blood Pressure [Right Radial artery] O2 Saturation 98 100 100 05/29/22 05/29/22 14:53 16:24 Temperature 36.5 C Heart Rate [ 83 Brachial] Heart Rate [ 88 Monitoring electrodes] Respiratory 15 16 Rate Blood Pressure Blood Pressure 135/68 H [Right Brachial artery] Blood Pressure 143/76 H [Right Radial artery] O2 Saturation 100 100 Oxygen O2 Source Room air I&O (Last 24 Hrs): Intake and Output Totals x24h 05/27/22 05/28/22 05/29/22 23:59 23:59 23:59 Intake Total 3123.084 1120 Output Total 250 450 Balance 2873.084 670 General: Alert, Oriented x3, Other (Thin male, bradykinetic, flat facies, no tremor.) HEENT: EOMI Neck: Supple, No JVD Neuro: Alert, Other (Bradykinetic, flat facies, no tremor.) Cardiovascular: Regular rate, No murmurs Respiratory: No respiratory distress, Breath sounds nml Abdomen: Normal bowel sounds, Soft Extremities: No clubbing, No edema, No tenderness/swelling - Results Results: Laboratory Results WBC 6.6 x10^3/uL (4.8-10.8) 05/27/22 16:01 RBC 4.24 10^6/uL (4.70-6.10) L 05/27/22 16:01 Hgb 12.8 g/dL (14.0-18.0) L 05/27/22 16:01 Hct 39.7 % (42.0-52.0) L 05/27/22 16:01 MCV 93.6 fL (80.0-94.0) 05/27/22 16:01 MCH 30.2 pg (27.0-31.0) 05/27/22 16:01 MCHC 32.2 g/dL (32.0-36.0) 05/27/22 16:01 RDW 12.5 % (12.0-15.0) 05/27/22 16:01 Plt Count 207 10^3/uL (130-450) 05/27/22 16:01 MPV 8.7 fL (7.4-11.4) 05/27/22 16:01 Neut # (Auto) 4.3 10^3/uL (1.5-6.6) 05/27/22 16:01 Lymph # (Auto) 1.5 10^3/uL (1.5-3.5) 05/27/22 16:01 [place] # (Auto) 0.6 10^3/uL (0.0-1.0) 05/27/22 16:01 Eos # (Auto) 0.2 10^3/uL (0.0-0.7) 05/27/22 16:01 Baso # (Auto) 0.1 10^3/uL (0.0-0.1) 05/27/22 16:01 Absolute Nucleated RBC 0.00 x10^3/uL 05/27/22 16:01 Nucleated RBC % 0.0 /100WBC 05/27/22 16:01 D-Dimer 251.1 ng/mL (200.0-255.0) 05/27/22 16:01 Sodium 138 mmol/L (135-145) 05/28/22 08:38 Potassium 3.8 mmol/L (3.5-5.0) 05/28/22 08:38 Chloride 106 mmol/L (101-111) 05/28/22 08:38 Carbon Dioxide 23 mmol/L (21-32) 05/28/22 08:38 Anion Gap 9.0 (6-13) 05/28/22 08:38 BUN 17 mg/dL (6-20) 05/28/22 08:38 Creatinine 1.0 mg/dL (0.6-1.2) 05/28/22 08:38 Estimated GFR (MDRD) 73 (>89) L 05/28/22 08:38 Glucose 153 mg/dL (70-100) H 05/28/22 08:38 Calcium 8.4 mg/dL (8.5-10.3) L 05/28/22 08:38 Magnesium 2.2 mg/dL (1.7-2.8) 05/28/22 08:38 Total Bilirubin 0.7 mg/dL (0.2-1.0) 05/27/22 16:01 AST 22 IU/L (10-42) 05/27/22 16:01 ALT 10 IU/L (10-60) 05/27/22 16:01 Alkaline Phosphatase 42 IU/L (42-121) 05/27/22 16:01 Troponin I High Sens 11.3 ng/L (2.3-19.7) 05/28/22 08:38 Total Protein 6.0 g/dL (6.7-8.2) L 05/27/22 16:01 Albumin 3.5 g/dL (3.2-5.5) 05/28/22 08:38 Globulin 2.4 g/dL (2.1-4.2) 05/27/22 16:01 Albumin/Globulin Ratio 1.5 (1.0-2.2) 05/27/22 16:01 Lipase 42 U/L (22-51) 05/27/22 16:01 TSH 1.69 uIU/mL (0.34-5.60) 05/28/22 08:38 - Procedures Procedures: Procedures BLADDER SPHINCTEROTOMY (06/06/14) INJECT CA CHEMOTHER NEC (06/06/14) OTHER INSTILLATION (06/06/14) TU DESTRUC BLADD LES NEC (06/06/14)
[2022-05-30] MEDS: SODIUM CHLORIDE FLUSH 0.9% 10 ML SYRINGE IVP SCH ×2 (01:30→14:12)
[2022-05-30] MEDS: CARBIDOPA/LEVODOPA 25 MG/100 MG TABLET PO SCH ×2 (05:58→08:36)
--- NOTE | 2022-05-30 13:05 | CARDIAC PROCEDURE NOTE ---
Stress Test Report Service Date: 05/30/22 Service Time: 11:30 Ordering Provider: Dr Red Valdez, PCP: Dr. Red Vicente Indication for Test: Chest Pain Summary, The patient had just lifted something heavy and loaded it into his trunk when he felt "something suddenly different" in his chest and when he got behind the wheel of his car he described chest pain. He drove home having chest pain, rested on his couch having chest pain and finally called 911. The chest pain stopped just as he arrived to the ER. There were no associated symptoms of shortness of breath, diaphoresis, radiation of pain. He cannot remember if thought "different feeling" was palpitations. In the ER he was found to be in A- fib at a rate of 130. Since being hospitalized, medications have been adjusted, he is converted to normal sinus rhythm. Significant Medical History: Parkinson's disease. Patient was found to have new onset A-fib at presentation to the ER, which was right after having his 20 minutes of chest pain. Cardiac Risk Factors: Male gender, HTN, advanced age. Type of Stress Test: ETT with Echocardiography Procedure: After signing informed consent, the patient underwent a modified-Jerry treadmill stress test with Echo imaging at rest, and after exercise. The patient exercised for 9 minutes, he completed 3 stages of the modified Jerry protocol. Resting heart rate: 63 Peak heart rate: 115 (78% pred max HR for age) Resting blood pressure: 145/89 Peak blood pressure: 211/91. RPP: 24,265 METS achieved: 4.64 Patient had no difficulty with walking (having Parkinson's disease). He described mild shortness of breath at peak stage. There was no chest pain during any portion of the test or in recovery. He had normal heart rate response to exercise. Hypertensive BP response to exercise. Oxygen saturation at rest: 90% on room air. Oxygen saturation throughout exercise: 78 to 83% (but these readings were in question, since the patient had an abnormal operations chief on the treadmill bar). Reason for stopping: Fatigue, SOB. Resting EKG: NSR, rate 63, LA enlargement, otherwise WNL. EKG at peak: Nonspecific, scooping inferolateral ST segments. Echo images: These are reported separately by different Admin Dir, and were reported as having normal LV wall motion at rest and at peak exercise. Summary: Imp: Probably normal treadmill Stress Echo to 78% PMHR for age (85% pred max target HR was not achieved however), with no CP or ischemic EKG changes seen. Poor exercise tolerance. Questionable abnormal oxygen desaturations during exercise. Rec: Consider pulmonary work-up.
--- NOTE | 2022-05-30 13:33 | Discharge Plan ---
Discharge Plan Problem Reviewed?: Yes Disposition: Home, Self Care Condition: Stable Prescriptions: diltiaZEM CD [Cardizem Cd] 120 mg PO DAILY #30 cap Aspirin EC [Ecotrin] 81 mg PO DAILY #30 tablet Lisinopril [Zestril] 10 mg PO QPM #30 tablet Diet: Low Sodium Activity Restrictions: Activity as Tolerated Shower Restrictions: No Driving Restrictions: No Weight Bearing: Full Weight Instruction Topics: Stroke Prevent Live W Atrial Fib Health Concerns: You are hospitalized to evaluate chest pain and new onset of a very fast and abnormal heart rhythm called Atrial fibrillation (Afib). With medication adjustments your heart came out of the atrial fib and went back into a normal rhythm. You underwent an Echocardiogram that showed normal heart strength and blood tests showed you have not had a heart attack. You underwent a stress test which was essentially normal. You are being discharged home with recommendations to adjust some of your medicines: Please start taking 1 baby aspirin daily LIFELONG, as prevention from a stroke (I prescribed aspirin to your pharmacy but you can buy [id number], enteric-coated aspirin, 81 mg dose), and a new prescription has been ordered for the Afib, called Cardizem CD. Please move your Lisinopril dosing to nighttime, and take your Metoprolol and the Cardizem in the morning. You may resume all your other pre-hospital medications. Please see your primary care provider in the next 1 to 3 weeks for hospital follow-up visit. Plan of Treatment: As above. Care Goals: Improvement in symptoms and stabilization are the goals. Assessment: Patient understands and is agreeable with the plan. Additional Instructions or Follow Up instructions: If you have any new or worsening symptoms, call your Primary Care Provider for advice, or come to the ER. No Smoking: If you smoke, Please STOP! Call for help. Follow-up with: Kaila Vicente MD [Provider Admit Priv/Credential] -
[2022-05-30] MEDS ORDERED: ASPIRIN EC 81 MG TABLET PO ONE (14:00)
[2022-05-30] MEDS: TAMSULOSIN 0.4 MG CAPSULE PO SCH (14:12)
[2022-05-30] MEDS: METOPROLOL SUCCINATE 50 MG TABLET PO SCH (14:12)
[2022-05-30] MEDS: SELEGILINE HCL 5 MG PO SCH (14:12)
[2022-05-30] MEDS: diltiaZEM CD 120 MG CAPSULE PO SCH (14:12)
--- NOTE | 2022-05-30 14:15 | DISCHARGE SUMMARY ---
Discharge Summary Admit Date: 05/27/22 Discharge Date: 05/30/22 Discharging Provider: Dr Ute Valdez Primary Care Provider: Dr Kaila Vicente Condition at Discharge: Stable Discharge Disposition: 01 Home, Self Care - HPI History of Present Illness: 76-year-old male with a history of hypertension and Parkinson's disease presents to the emergency department stating that about 3 hours prior to arrival he had about 20 minutes worth of lower chest pain. Described as a sq ueezing. Nothing made it better or worse. No difficulty breathing. No nausea or vomiting. No sweating. Has not had similar symptoms previously. Patient was found to be in atrial fibrillation with rapid ventricular response. He denies any history of A-fib. Currently asymptomatic. He is not on blood thinner. Patient lives with his , has no major cardiac issues in past and no medical problem in past except Parkinson's, feels well. He used to work in [employer], has 2 adult kids, is doing well with no other concerns or complaints He will be admitted for new onset Afib. - HOSPITAL COURSE Hospital Course: 1. New onset a-fib This was new onset of A-fib, and the heart rate was elevated. Troponins were normal. His TSH was normal. The heart rate slowed in Afib, on Cardizem, added to his B-zach med, then he converted to normal sinus rhythm. A resting Echo was done and showed normal LV systolic function. His CHADS score was low and he was advised to take a (baby) aspirin daily lifelong, for stroke prophylaxis. He was discharged on the new Cardizem CD and kept on his Metoprolol. 2 Chest pain This was his presenting complaint. His troponins were normal x3. He had no recurrence of chest pain here. He underwent a treadmill stress test with Echo imaging (which delayed his discharge by a day, waiting to get on the Diagnostic Imaging schedule). He was able to walk without difficulty on the treadmill with a Modified Jerry protocol, but (only) achieved 78% pred max HR for age. Test stopped due to SOB and hypertensive BP response (211 syst at peak). Also O2 sats were low during exercise (80% on room air), but the sats were possibly not accurate due to his cooker meal). He had no ischemic EKG changes and no wall motion abnormalities on Echo after exercise. 3. Parkinson's disease He did have features of Parkinson's: flat affect and bradykinesis with motions and with speech. But had no tremor on his usual Parkinson's meds that we continued here. 4. HTN Patient was on metoprolol and lisinopril at home. Also his BPH med brings down his blood pressure. Since Cardizem was added here, and we continued his metoprolol and his BPH med, we did not use Lisinopril since it was not needed for systolic function, since Echo showed a normal LVEF. And his current med combination was controlling his BP. If he resumes Lisinopril, I asked him to move it to bedtime dosing. - ALLERGIES Allergies/Adverse Reactions: Allergies Allergy/AdvReac Type Severity Reaction Status Date / Time Sulfa (Sulfonamide Allergy Rash Verified 05/27/22 15:47 Antibiotics) - MEDICATIONS Home Medications: Ambulatory Orders Medication Instructions Recorded Confirmed Selegiline HCl 5 mg PO BID 06/06/14 05/28/22 Tamsulosin [Flomax] 0.4 mg PO DAILY 06/06/14 05/28/22 Carbidopa/Levodopa 25/100 [Sinemet 1.5 tab PO TID 05/21/22 05/28/22 25 mg/100 mg] Metoprolol Succinate [Toprol Xl] 1 tab PO DAILY 05/28/22 05/28/22 Aspirin EC [Ecotrin] 81 mg PO DAILY #30 tablet 05/30/22 Lisinopril [Zestril] 10 mg PO QPM #30 tablet 05/30/22 diltiaZEM CD [Cardizem Cd] 120 mg PO DAILY #30 cap 05/30/22 - PHYSICAL EXAM AT DISCHARGE General Appearance: positive: No acute distress, Alert, Other (Tall thin male, male pattern balness.) Eyes Bilateral: positive: Normal inspection, EOMI ENT: positive: ENT inspection nml, No signs of dehydration Neck: positive: Nml inspection, No JVD Respiratory: positive: No respiratory distress, Breath sounds nml Cardiovascular: positive: Regular rate & rhythm, No murmur Abdomen: positive: Non-tender, Nml bowel sounds, No distention Skin: positive: No rash, Warm, Dry Extremities: positive: Non-tender, No pedal edema Neurologic/Psychiatric: positive: Other (Flat affect, bradykinetic motions and voice. No tremor (on his meds).) - LABS Result Diagrams: 05/27/22 16:01 05/28/22 08:38 - DIAGNOSTIC IMAGING Diagnostic Imaging Results: Final report reviewed - FOLLOW UP Follow Up: See PCP for a hospital follow-up visit. - TIME SPENT Time Spent in Discharge (Minutes): 30
[2022-05-30 14:19] VITALS: BP 115/69
== END 2022-05-30 15:03 | disposition home or self-care (01) | DRG 310 ==
LOC: EDUNIT# → ED 15:35 → ICU 21:10 → MS2 22:42
PROVIDERS: ADMIT Internal Medicine; ATTEND Internal Medicine
DX: I48.91 Unspecified atrial fibrillation (principal); G20 Parkinson's disease; R07.89 Other chest pain; I10 Essential (primary) hypertension; R53.1 Weakness; N40.0 Benign prostatic hyperplasia without lower urinary tract symptoms
CPT/HCPCS: 36415; 71045; 80048; 80053; 82040; 83690; 83735; 84443; 84484; 85025; 85379; 93005; 93306; 93350; 96374; 96376; 99285; A9270

== ENCOUNTER 2022-09-26 17:34 | Outpatient (CLI) | payer MEDICARE, OTHER | END 2022-09-26 23:59 | disposition EMS.NT | LOC: EMS 17:34 | DX: S51.812A Laceration without foreign body of left forearm, initial encounter (principal); S51.811A Laceration without foreign body of right forearm, initial encounter; W54.8XXA Other contact with dog, initial encounter ==

== ENCOUNTER 2022-09-30 15:39 | Emergency (ER) | payer MEDICARE, OTHER ==
[2022-09-30 16:34] LABS: BASOPHILS # (AUTO) 0.1 10^3/uL (0.0-0.1); EOSINOPHILS # (AUTO) 0.2 10^3/uL (0.0-0.7); EOSINOPHILS % (AUTO) 2.9 %; HCT - HEMATOCRIT 38.6 % (42.0-52.0); HGB - HEMOGLOBIN 12.9 g/dL (14.0-18.0); LYMPHOCYTES # (AUTO) 1.8 10^3/uL (1.5-3.5); LYMPHOCYTES % (AUTO) 25.1 %; MEAN CORPUSCULAR HEMOGLOBIN 30.1 pg (27.0-31.0); MEAN CORPUSCULAR HGB CONC 33.4 g/dL (32.0-36.0); MEAN CORPUSCULAR VOLUME 90.2 fL (80.0-94.0); MEAN PLATELET VOLUME 8.6 fL (7.4-11.4); MONOCYTES # (AUTO) 0.7 10^3/uL (0.0-1.0); MONOCYTES % (AUTO) 8.9 %; NEUTROPHILS # (AUTO) 4.5 10^3/uL (1.5-6.6); NEUTROPHILS % (AUTO) 61.7 %; PLT - PLATELET COUNT 238 10^3/uL (130-450); RED BLOOD COUNT 4.28 10^6/uL (4.70-6.10); RED CELL DISTRIBUTION WIDTH 12.6 % (12.0-15.0); WHITE BLOOD COUNT 7.3 x10^3/uL (4.8-10.8)
[2022-09-30 16:48] LABS: ALBUMIN 4.1 g/dL (3.2-5.5); ALBUMIN/GLOBULIN RATIO 1.9 (1.0-2.2); BILIRUBIN,TOTAL 1.1 mg/dL (0.2-1.0); CALCIUM 9.3 mg/dL (8.5-10.3); POTASSIUM 3.9 mmol/L (3.5-4.5); TOTAL PROTEIN 6.3 g/dL (6.4-8.9)
[2022-09-30] MEDS ORDERED: SALINE ENEMA 133 ML BOTTLE RC STA (17:02)
--- NOTE | 2022-09-30 18:07 | ED Physician Documentation ---
History of Present Illness - Stated complaint Stated Complaint: GI - Chief complaint Chief Complaint: Abd Pain - History obtained from History obtained from: Patient - History of Present Illness Pain level max: 0 Pain level now: 0 - Additonal information Additional information: Patient is a 77-year-old male with a longstanding history of Parkinson's who presents with constipation for the past 8 days. He states he has had constipation issues for several years. No abdominal pain. No vomiting. Does not feel the urge to defecate. Patient had a recent normal colonoscopy. Colonoscopy was May of this year. Review of Systems Constitutional: denies: Fever, Chills Respiratory: denies: Dyspnea GI: denies: Vomiting, Diarrhea : denies: Dysuria, Frequency, Hesitancy Skin: denies: Rash Musculoskeletal: denies: Neck pain, Back pain PD PAST MEDICAL HISTORY - Past Medical History Cardiovascular: Hypertension, High cholesterol Respiratory: None Neuro: Parkinson's Endocrine/Autoimmune: None GI: Colon polyps, Chronic constipation : Benign prostate hypertrophy HEENT: None Psych: None Musculoskeletal: None Derm: Other - Past Surgical History Past Surgical History: Yes General: Colonoscopy HEENT: Tonsil/Adenoidectomy - Present Medications Home Medications: Ambulatory Orders Medication Instructions Recorded Confirmed Selegiline HCl 5 mg PO BID 06/06/14 05/28/22 Tamsulosin [Flomax] 0.4 mg PO DAILY 06/06/14 05/28/22 Carbidopa/Levodopa 25/100 [Sinemet 1.5 tab PO TID 05/21/22 05/28/22 25 mg/100 mg] Metoprolol Succinate [Toprol Xl] 1 tab PO DAILY 05/28/22 05/28/22 Aspirin EC [Ecotrin] 81 mg PO DAILY #30 tablet 05/30/22 Lisinopril [Zestril] 10 mg PO QPM #30 tablet 05/30/22 diltiaZEM CD [Cardizem Cd] 120 mg PO DAILY #30 cap 05/30/22 polyethylene glycoL 3350(BULK) 17 gm PO DAILY PRN #1 each 09/30/22 [Miralax] - Allergies Allergies/Adverse Reactions: Allergies Allergy/AdvReac Type Severity Reaction Status Date / Time Sulfa (Sulfonamide Allergy Rash Verified 09/30/22 15:42 Antibiotics) - Social History Does the pt smoke?: No Smoking Status: Never smoker Does the pt drink ETOH?: Yes Does the pt have substance abuse?: No - Immunizations Immunizations are current?: Yes PD ED PE NORMAL - Vitals Vital signs reviewed: Yes - General General: Alert and oriented X 3, No acute distress - HEENT HEENT: PERRL, Moist mucous membranes - Neck Neck: Supple, no meningeal sign - Cardiac Cardiac: RRR, Strong equal pulses - Respiratory Respiratory: No respiratory distress, Clear bilaterally - Abdomen Abdomen: Normal bowel sounds, Soft, Non tender, Non distended - Back Back: No CVA TTP, No spinal TTP - Derm Derm: Warm and dry - Neuro Neuro: Alert and oriented X 3 - Psych Psych: Normal mood, Normal affect Results - Vitals Vitals: Vital Signs - 24 hr 09/30/22 09/30/22 15:42 18:23 Temperature 36.5 C Heart Rate 66 63 Respiratory 16 15 Rate Blood Pressure 139/68 H 141/81 H O2 Saturation 97 99 Oxygen O2 Source Room air - Labs Labs: Laboratory Tests 09/30/22 09/30/22 16:29 16:29 WBC 7.3 RBC 4.28 L Hgb 12.9 L Hct 38.6 L MCV 90.2 MCH 30.1 MCHC 33.4 RDW 12.6 Plt Count 238 MPV 8.6 Neut # (Auto) 4.5 Lymph # (Auto) 1.8 [place] # (Auto) 0.7 Eos # (Auto) 0.2 Baso # (Auto) 0.1 Absolute Nucleated RBC 0.00 Nucleated RBC % 0.0 Sodium 137 Potassium 3.9 Chloride 104 Carbon Dioxide 28 Anion Gap 5.0 L BUN 18 Creatinine 1.0 Estimated GFR (MDRD) 73 L Glucose 115 H Calcium 9.3 Total Bilirubin 1.1 H AST 18 ALT 13 Alkaline Phosphatase 52 Total Protein 6.3 L Albumin 4.1 Globulin 2.2 Albumin/Globulin Ratio 1.9 Lipase 33 PD Medical Decision Making - ED course Complexity details: reviewed results, re-evaluated patient, considered differential, d/w patient ED course: Patient was given an enema here, had a bowel movement, feels better. Will place on laxatives for home. No significant lab abnormalities. Patient denies any urinary complaints to me, he did say that his urine was dark but no dysuria, no frequency and no signs of infection clinically. Patient did not give a urine sample. Patient will follow-up with his PCP for further care. Abdomen remains soft, nontender nondistended. Patient counseled regarding signs and symptoms for which I believe and urgent re-evaluation would be necessary. Patient with good understanding of and agreement to plan and is comfortable going home at this time This document was made in part using voice recognition software. While efforts are made to proofread this document, sound alike and grammatical errors may occur. Departure - Departure Disposition: Home, Self Care Clinical Impression: Constipation Qualifiers: Constipation type: unspecified constipation type Qualified Code(s): K59.00 - Constipation, unspecified Condition: Good Instructions: ED Constipation Follow-Up: Kaila Vicente MD [Primary Care Provider] - Prescriptions: polyethylene glycoL 3350(BULK) [Miralax] 17 gm PO DAILY PRN #1 each PRN Reason: Constipation Comments: Please follow-up with your doctor for further care. Make sure you are drinking plenty of water at home. You can use the MiraLAX as needed for constipation. Please follow-up with your doctor to discuss your constipation. Forms: PCP List Discharge Date/Time: 09/30/22 18:23
[2022-09-30 18:26] VITALS: BP 141/81
== END 2022-09-30 18:23 | disposition home or self-care (01) ==
LOC: ED 15:39
DX: K59.00 Constipation, unspecified (principal); G20 Parkinson's disease; I10 Essential (primary) hypertension; E78.00 Pure hypercholesterolemia, unspecified; Z79.899 Other long term (current) drug therapy; Z79.82 Long term (current) use of aspirin
CPT/HCPCS: 36415; 80053; 83690; 85025; 99283; A9270

== ENCOUNTER 2022-12-25 07:12 | Outpatient (CLI) | payer MEDICARE, OTHER | END 2022-12-25 07:13 | disposition EMS.NT | LOC: EMS 07:12 | DX: I10 Essential (primary) hypertension (principal) ==

== ENCOUNTER 2022-12-26 01:19 | Outpatient (CLI) | payer MEDICARE, OTHER | END 2022-12-26 01:20 | disposition EMS.NT | LOC: EMS 01:19 | DX: R53.81 Other malaise (principal); K59.00 Constipation, unspecified ==

== ENCOUNTER 2022-12-26 07:02 | Outpatient (CLI) | payer MEDICARE, OTHER | END 2022-12-26 07:03 | disposition critical access hospital (66) | LOC: EMS 07:02 | DX: R53.81 Other malaise (principal); K59.00 Constipation, unspecified; R10.9 Unspecified abdominal pain | CPT/HCPCS: A0425; A0429 ==

== ENCOUNTER 2022-12-26 07:15 | Emergency (ER) | payer MEDICARE, OTHER ==
--- NOTE | 2022-12-26 07:33 | ED Physician Documentation ---
History of Present Illness - Stated complaint Stated Complaint: GENERAL MALASIE - Chief complaint Chief Complaint: General - History obtained from History obtained from: Patient, EMS - History of Present Illness Timing: How many days ago (3 days of malaise and not feeling well, generally weaker. No URI symptoms, no fevers. Denies dyspnea, chest pain. He does have feeling of heart rate faster at times, not consistent.) Quality: feling moderately unwell. No URI symptoms. - Additonal information Additional information: recently seen by cardiology at [facility] with electrical cardioversion of atrial fib. Was on anticoag at that time, but stopped by Documentation Specialist. He has beel having some decreased urination with dribbles only. Does not hurt. Noted decreased stool output with constipation but no rectal pain/fullness. Review of Systems Constitutional: reports: Fatigue. denies: Fever, Chills Nose: denies: Rhinorrhea / runny nose, Congestion Throat: denies: Sore throat Cardiac: reports: Palpitations (he feels his heart may be going fast at times.). denies: Chest pain / pressure Respiratory: denies: Dyspnea, Cough PD PAST MEDICAL HISTORY - Past Medical History Cardiovascular: Hypertension, High cholesterol, Atrial fibrillation (with cardioversion by Cardiology about amonth ago at [place]. ) Respiratory: None Neuro: Parkinson's Endocrine/Autoimmune: None GI: Colon polyps, Chronic constipation : Benign prostate hypertrophy HEENT: None Psych: None Musculoskeletal: None Derm: Other - Past Surgical History Past Surgical History: Yes General: Colonoscopy HEENT: Tonsil/Adenoidectomy - Present Medications Home Medications: Ambulatory Orders Medication Instructions Recorded Confirmed Selegiline HCl 5 mg PO BID 06/06/14 05/28/22 Tamsulosin [Flomax] 0.4 mg PO DAILY 06/06/14 05/28/22 Carbidopa/Levodopa 25/100 [Sinemet 1.5 tab PO TID 05/21/22 05/28/22 25 mg/100 mg] Metoprolol Succinate [Toprol Xl] 1 tab PO DAILY 05/28/22 05/28/22 Aspirin EC [Ecotrin] 81 mg PO DAILY #30 tablet 05/30/22 Lisinopril [Zestril] 10 mg PO QPM #30 tablet 05/30/22 diltiaZEM CD [Cardizem Cd] 120 mg PO DAILY #30 cap 05/30/22 polyethylene glycoL 3350(BULK) 17 gm PO DAILY PRN #1 each 09/30/22 [Miralax] Tamsulosin [Flomax] 0.4 mg PO DAILY #15 cap 12/26/22 - Allergies Allergies/Adverse Reactions: Allergies Allergy/AdvReac Type Severity Reaction Status Date / Time Sulfa (Sulfonamide Allergy Rash Verified 12/26/22 09:14 Antibiotics) - Social History Does the pt smoke?: No Smoking Status: Never smoker Does the pt drink ETOH?: Yes Does the pt have substance abuse?: No - Immunizations Immunizations are current?: Yes PD ED PE NORMAL - Vitals Vital signs reviewed: Yes - General General: Alert and oriented X 3, No acute distress, Well developed/nourished - HEENT HEENT: Moist mucous membranes, Pharynx benign - Neck Neck: Supple, no meningeal sign, No adenopathy - Cardiac Cardiac: RRR, No murmur - Respiratory Respiratory: Clear bilaterally - Abdomen Abdomen: Normal bowel sounds, Soft, Other (fullness in bladder arew with some te nderness but no guarding. ) - Back Back: No CVA TTP - Derm Derm: Normal color, Warm and dry - Extremities Extremities: No edema, No calf tenderness / cord - Neuro Neuro: Alert and oriented X 3, No motor deficit, Normal speech, Other (right arm tremor which he says is common for him. ) Results - Vitals Vitals: Vital Signs - 24 hr 12/26/22 12/26/22 12/26/22 07:22 09:15 11:00 Temperature 36.3 C L 36.7 C Heart Rate 64 66 71 Respiratory 18 18 18 Rate Blood Pressure 155/102 H 146/112 H 152/88 H O2 Saturation 100 100 99 12/26/22 12/26/22 13:00 14:31 Temperature Heart Rate 66 67 Respiratory 16 21 Rate Blood Pressure 149/90 H 147/91 H O2 Saturation 100 100 Oxygen O2 Source Room air - EKG (time done) 07:56 EKG releavant findings:: EKG personally interpreted by author of this note. Relevant findings are: Rate: Rate (enter#) (56) Rhythm: Sinus bradycardia Zachary: Normal Intervals: Normal FL QRS: Normal Ischemia: Normal ST segments. No: ST elevation c/w ischemia, ST depression - Labs Labs: Laboratory Tests 12/26/22 12/26/22 12/26/22 07:55 07:55 07:55 WBC 6.6 RBC 4.17 L Hgb 12.8 L Hct 38.0 L MCV 91.1 MCH 30.7 MCHC 33.7 RDW 12.5 Plt Count 245 MPV 8.5 Neut # (Auto) 4.5 Lymph # (Auto) 1.4 L [place] # (Auto) 0.5 Eos # (Auto) 0.1 Baso # (Auto) 0.1 Absolute Nucleated RBC 0.00 Nucleated RBC % 0.0 Sodium 136 Potassium 4.3 Chloride 104 Carbon Dioxide 29 Anion Gap 3.0 L BUN 17 Creatinine 1.0 Estimated GFR (MDRD) 73 L Glucose 94 Calcium 9.5 Magnesium 2.0 Total Bilirubin 1.5 H AST 15 ALT 8 L Alkaline Phosphatase 49 Troponin I High Sens 2.5 B-Natriuretic Peptide Cancelled Total Protein 6.0 L Albumin 4.2 Globulin 1.8 L Albumin/Globulin Ratio 2.3 H Lipase 20 Urine Color Urine Clarity Urine pH Ur Specific Kellogg Urine Protein Urine Glucose (UA) Urine Ketones Urine Occult Blood Urine Nitrite Urine Bilirubin Urine Urobilinogen Ur Leukocyte Esterase Ur Microscopic Review Urine Culture Comments 12/26/22 12/26/22 07:55 12:35 WBC RBC Hgb Hct MCV MCH MCHC RDW Plt Count MPV Neut # (Auto) Lymph # (Auto) [place] # (Auto) Eos # (Auto) Baso # (Auto) Absolute Nucleated RBC Nucleated RBC % Sodium Potassium Chloride Carbon Dioxide Anion Gap BUN Creatinine Estimated GFR (MDRD) Glucose Calcium Magnesium Total Bilirubin AST ALT Alkaline Phosphatase Troponin I High Sens B-Natriuretic Peptide 31 Total Protein Albumin Globulin Albumin/Globulin Ratio Lipase Urine Color YELLOW Urine Clarity CLEAR Urine pH 6.0 Ur Specific Kellogg 1.020 Urine Protein NEGATIVE Urine Glucose (UA) NEGATIVE Urine Ketones 15 H Urine Occult Blood NEGATIVE Urine Nitrite NEGATIVE Urine Bilirubin NEGATIVE Urine Urobilinogen 0.2 (NORMAL) Ur Leukocyte Esterase NEGATIVE Ur Microscopic Review NOT INDICATED Urine Culture Comments NOT INDICATED - Rads (name of study) chest xray Relevant Findings:: Prelim report reviewed (no acute process), EMP independent interpretation of test PD Medical Decision Making - ED course Complexity details: reviewed results (trop 2.5 and BNP 31. NO clinical signs of CHF?hear tfailure with normal lung sounds and no leg edema, no orthopnea. He says he feels heart fast at times. 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 Chemistry panel otherwise normal. Blood count without anemia. ), re-evaluated patient (he was unable to urinate beyond dribbles here and bladder scan over [address] jo[address] UA without infection. WIll have pt f/u with Urology. Unsure the cause of his malaise/weak feeling otherwise. ), considered differential (he says he felt some fast pulse at times. Is NSR heart rate 60ish here. I would not want to icnrease betablocker. ), d/w patient Departure - Departure Disposition: 01 Home, Self Care Clinical Impression: Malaise and fatigue, Urinary retention, Constipated Condition: Stable Record reviewed to determine appropriate education?: Yes Instructions: ED Retention Urinary Male Follow-Up: Kaila Vicente MD [Primary Care Provider] - Davon Hernández MD [Provider Admit Priv/Credential] - Prescriptions: Tamsulosin [Flomax] 0.4 mg PO DAILY #15 cap Comments: Your basic blood tests and chest x-ray and urine test are normal here without any signs of electrolyte abnormalities or obvious infection such as lung or bladder. He did have a fair amount of urine in the bladder and unable to urinate. Unclear how long this has been overexpanded. We did place a Joe catheter and you are draining appropriately at this time. Commonly will leave that in there for several days to week or so to allow the stretched bladder to come back more to its normal size and also to start some prostate medicine with presumed enlarged prostate as the cause of this. Follow-up with urology in the next week or so, call for an appointment. You could call the urologist you are scheduled to see in [facility] or alternatively we have a urologist here now on [facility]. I provided the number. Tamsulosin prostate medicine daily for the next 2 weeks. It is unclear the cause of your malaise and fatigue feeling. See how you feel over the next couple of days and if new symptoms develop. The urinary retention and stretched bladder may have been causing some feedback symptoms to your body. Follow-up with your primary care if not improving over the next several days to week. Continue usual medicines and be sure to stay well-hydrated. I sent your prescription to [facility]. Forms: PCP List Discharge Date/Time: 12/26/22 15:02
--- OUTSIDE RECORDS SUMMARY | 2022-12-26 07:41 | EXTERNAL MEDICAL SUMMARY RPT | Continuity of Care Document ---
Author Name Unknown Address [address] [place] [address] Phone Organization [facility] Address [address] [place] [address] Phone Care Team Providers Care Analog Design Engineer Name Role Phone Kaila Vicente Unavailable Unavailable Allergies and Intolerances date description facility reaction severity 2022-12-01 11:23:53 [facility] (no reactio n) (no severity) Problems date description facility 2022-12-01 00:00 Atrial fibrillation [facility] 2022-12-01 08:16 Essential (primary) hypertensio n [facility] 2022-12-01 08:16 Other fatigue [facility] Procedures date description facility 2022-12-01 00:00 X-ray of chest, single view [facility] Results/Labs test date facility value unit notes Social History date description facility 2022-12-01 00:00 Unknown if ever smoked [facility] Vital Signs date measurement value units 2022-12-01 00:00 BMI 21.5 kg/m2 2022-12-01 00:00 BP_diastolic 58 mmHg 2022-12-01 00:00 BP_systolic 122 mmHg 2022-12-01 00:00 heart_rate 67 /min 2022-12-01 00:00 height_metric 177.8 cm 2022-12-01 00:00 height_standard 70 in 2022-12-01 00:00 o2_saturation 99 % 2022-12-01 00:00 respiration_rate 14 /min 2022-12-01 00:00 temperature_metric 36.89 C 2022-12-01 00:00 temperature_standard 98.4 F 2022-12-01 00:00 weight_metric 68.03 kg 2022-12-01 00:00 weight_standard 149.98 lb
[2022-12-26 08:02] LABS: BASOPHILS # (AUTO) 0.1 10^3/uL (0.0-0.1); BASOPHILS % (AUTO) 0.8 %; EOSINOPHILS # (AUTO) 0.1 10^3/uL (0.0-0.7); EOSINOPHILS % (AUTO) 1.7 %; HGB - HEMOGLOBIN 12.8 g/dL (14.0-18.0); LYMPHOCYTES # (AUTO) 1.4 10^3/uL (1.5-3.5); LYMPHOCYTES % (AUTO) 21.5 %; MEAN CORPUSCULAR HEMOGLOBIN 30.7 pg (27.0-31.0); MEAN CORPUSCULAR HGB CONC 33.7 g/dL (32.0-36.0); MEAN CORPUSCULAR VOLUME 91.1 fL (80.0-94.0); MEAN PLATELET VOLUME 8.5 fL (7.4-11.4); MONOCYTES # (AUTO) 0.5 10^3/uL (0.0-1.0); NEUTROPHILS # (AUTO) 4.5 10^3/uL (1.5-6.6); NEUTROPHILS % (AUTO) 67.5 %; PLT - PLATELET COUNT 245 10^3/uL (130-450); RED BLOOD COUNT 4.17 10^6/uL (4.70-6.10); RED CELL DISTRIBUTION WIDTH 12.5 % (12.0-15.0); WHITE BLOOD COUNT 6.6 x10^3/uL (4.8-10.8)
[2022-12-26 08:13] LABS: ALBUMIN 4.2 g/dL (3.2-5.5); ALBUMIN/GLOBULIN RATIO 2.3 (1.0-2.2); BILIRUBIN,TOTAL 1.5 mg/dL (0.2-1.0); CALCIUM 9.5 mg/dL (8.5-10.3); POTASSIUM 4.3 mmol/L (3.5-4.5)
--- NOTE | 2022-12-26 08:17 | XRAY Report ---
PROCEDURE: Chest 1 View X-Ray INDICATIONS: fatigue for 3 days TECHNIQUE: One view of the chest was acquired. COMPARISON: None. FINDINGS: Surgical changes and devices: None. Lungs and pleura: No pleural effusions or pneumothorax. Lungs are clear. Mediastinum: Mediastinal contours appear normal. Heart size is normal. Bones and chest wall: No suspicious bony lesions. Overlying soft tissues appear unremarkable. IMPRESSION: No acute cardiopulmonary process. Reviewed by: Toby Nova MD on 12/26/2022 8:16 AM PDT Approved by: Toby Nova MD on 12/26/2022 8:16 AM PDT Station ID: [id number]
[2022-12-26] MEDS ORDERED: DOCUSATE SODIUM 100 MG CAPSULE PO STA (08:25)
[2022-12-26] MEDS ORDERED: LACTULOSE 10 GM /15 ML UDC PO STA (10:06)
[2022-12-26 12:58] LABS: BILIRUBIN,URINE NEGATIVE (NEGATIVE); GLUCOSE, URINE (UA) NEGATIVE (NEGATIVE); KETONES,URINE (UA) 15 mg/dL (NEGATIVE); LEUKOCYTE ESTERASE, URINE NEGATIVE (NEGATIVE); NITRITE,URINE NEGATIVE (NEGATIVE); OCCULT BLOOD,URINE NEGATIVE (NEGATIVE); PROTEIN,URINE NEGATIVE (NEGATIVE); UROBILINOGEN,URINE 0.2 (NORMAL) E.U./dL (NORMAL)
[2022-12-26 12:59] LABS: CLARITY,URINE CLEAR (CLEAR)
[2022-12-26 13:14] VITALS: O2SAT 100
[2022-12-26] MEDS ORDERED: TAMSULOSIN 0.4 MG CAPSULE PO STA (13:58)
[2022-12-26 14:39] VITALS: BP 147/91
== END 2022-12-26 15:02 | disposition home or self-care (01) ==
LOC: EDUNIT# → ED 07:15
DX: R53.81 Other malaise (principal); R00.2 Palpitations; R33.9 Retention of urine, unspecified; K59.00 Constipation, unspecified
CPT/HCPCS: 36415; 51702; 51798; 71045; 80053; 81003; 83690; 83735; 83880; 84484; 85025; 93005; 99284; A9270; 81001; 87086

== ENCOUNTER 2022-12-29 10:30 | Emergency (ER) | payer MEDICARE, OTHER ==
[2022-12-29 10:48] VITALS: BP 122/77; O2SAT 100
--- NOTE | 2022-12-29 11:00 | ED Physician Documentation ---
History of Present Illness - Stated complaint Stated Complaint: CATH REMOVAL - Chief complaint Chief Complaint: General - History obtained from History obtained from: Patient - Additonal information Additional information: The patient comes to the emergency department chief complaint of wanting his Kamara catheter out. He was seen here about 4 days ago for urinary retention and a Kamara was placed. The patient states that everything has been going great but he does not want to wait any longer than he absolutely has to to get the catheter removed. The patient is well established with urology, having been a patient of both Dr. Robles and Dr. Blum. He states he has noticed slight blood tingeing in the urine that is coming out of his catheter, but otherwise, no issues. He denies fevers or chills. No abdominal pain. No nausea or vomiting. No other complaints at this time. PD PAST MEDICAL HISTORY - Past Medical History Past Medical History: Yes Cardiovascular: Hypertension, High cholesterol, Atrial fibrillation Respiratory: None Neuro: Parkinson's Endocrine/Autoimmune: None GI: Colon polyps, Chronic constipation : Benign prostate hypertrophy HEENT: None Psych: None Musculoskeletal: None Derm: Other - Past Surgical History Past Surgical History: Yes General: Colonoscopy HEENT: Tonsil/Adenoidectomy - Present Medications Home Medications: Ambulatory Orders Medication Instructions Recorded Confirmed Selegiline HCl 5 mg PO BID 06/06/14 12/29/22 Carbidopa/Levodopa 25/100 [Sinemet 1.5 tab PO TID 05/21/22 12/29/22 25 mg/100 mg] Metoprolol Succinate [Toprol Xl] 50 mg PO DAILY 05/28/22 12/29/22 Aspirin EC [Ecotrin] 81 mg PO DAILY #30 tablet 05/30/22 12/29/22 Lisinopril [Zestril] 10 mg PO QPM #30 tablet 05/30/22 12/29/22 diltiaZEM CD [Cardizem Cd] 120 mg PO DAILY #30 cap 05/30/22 12/29/22 polyethylene glycoL 3350(BULK) 17 gm PO DAILY PRN #1 each 09/30/22 12/29/22 [Miralax] Tamsulosin [Flomax] 0.4 mg PO DAILY #15 cap 12/26/22 12/29/22 - Allergies Allergies/Adverse Reactions: Allergies Allergy/AdvReac Type Severity Reaction Status Date / Time Sulfa (Sulfonamide Allergy Rash Verified 12/29/22 10:44 Antibiotics) - Social History Does the pt smoke?: No Smoking Status: Never smoker Does the pt drink ETOH?: Yes Does the pt have substance abuse?: No - Immunizations Immunizations are current?: Yes PD ED PE NORMAL - Vitals Vital signs reviewed: Yes - General General: Alert and oriented X 3, No acute distress, Well developed/nourished - HEENT HEENT: Atraumatic, PERRL, EOMI, Moist mucous membranes - Neck Neck: Supple, no meningeal sign - Cardiac Cardiac: RRR, No murmur - Respiratory Respiratory: No respiratory distress, Clear bilaterally - Abdomen Abdomen: Soft, Non tender, Non distended - Derm Derm: Normal color, Warm and dry, No rash - Extremities Extremities: No deformity - Neuro Neuro: Alert and oriented X 3 - Psych Psych: Normal mood, Normal affect Results - Vitals Vitals: Vital Signs - 24 hr 12/29/22 10:37 Temperature 36.5 C Heart Rate 77 Respiratory 16 Rate Blood Pressure 122/77 O2 Saturation 100 Oxygen O2 Source Room air PD Medical Decision Making - ED course Complexity details: considered differential, d/w patient ED course: Kamara catheter was removed in the emergency department by nursing staff. I discussed with the patient that at this point, it remains to be seen whether he his bladder will begin to empty normally or not. If it does not over the next 24 hours, I have advised him that he should come back and have the catheter reinserted and will definitely need urology follow-up to determine the plan going forward. Departure - Departure Disposition: 01 Home, Self Care Clinical Impression: Urinary retention Condition: Stable Instructions: ED Retention Urinary Male Comments: Please make the next available appointment to follow-up on this issue with Dr. Blum of urology. If you develop retention of urine again, to the point where you do not have any urination over a 24-hour period, or if you develop severe discomfort and are unable to urinate, please return to the emergency department.
== END 2022-12-29 11:10 | disposition home or self-care (01) ==
LOC: ED 10:30
DX: R33.9 Retention of urine, unspecified (principal); I10 Essential (primary) hypertension; E78.00 Pure hypercholesterolemia, unspecified; I48.91 Unspecified atrial fibrillation; G20.A1 Parkinson's disease without dyskinesia, without mention of fluctuations; Z79.82 Long term (current) use of aspirin; Z79.899 Other long term (current) drug therapy
CPT/HCPCS: 99281; 99282

== ENCOUNTER 2023-01-01 08:58 | Outpatient (CLI) | payer MEDICARE, OTHER | END 2023-01-01 08:59 | disposition critical access hospital (66) | LOC: EMS 08:58 | DX: R53.1 Weakness (principal) | CPT/HCPCS: A0425; A0429 ==

== ENCOUNTER 2023-01-01 09:13 | Emergency (ER) | payer MEDICARE, OTHER ==
[2023-01-01 09:27] VITALS: O2SAT 100
--- NOTE | 2023-01-01 09:44 | ED Physician Documentation ---
PD HPI FOCAL NEURO - Stated complaint Stated Complaint: GEN WEAKNESS - Chief complaint Chief Complaint: General - History obtained from History obtained from: Patient - History of Present Illness Timing - onset: How many days ago (2-3 days.) Timing - duration: Days (2-3 days of general weakness. Had had some similar 6-7 days ago and seen in ER without obvious diagnosis. Had urinary retention and joe placed. Rx tamsulosin. returned 3 days ago to have joe removed as bothering him. was urinating for 2 days and now not much out since last night. Generally weak.) Timing - details: Gradual onset, Still present Severity of deficit: Moderate Weakness: Other (generalized) Numbness: No: Face, Arm, Leg Associated symptoms: Other (lightheaded feeling). No: Headache, Nausea / vomiting Baseline status: positive: A&OX3, ambulatory, indep, Walker Recently seen: Emergency Dept (see above) Review of Systems Constitutional: denies: Fever, Chills Nose: denies: Rhinorrhea / runny nose, Congestion Throat: denies: Sore throat Respiratory: denies: Cough GI: denies: Vomiting, Diarrhea, Bloody / black stool : reports: Unable to Void. denies: Dysuria, Hematuria Neurologic: reports: Generalized weakness. denies: Focal weakness, Numbness, Confused, Altered mental status, Headache PD PAST MEDICAL HISTORY - Past Medical History Cardiovascular: Hypertension, High cholesterol, Atrial fibrillation Respiratory: None Neuro: Parkinson's Endocrine/Autoimmune: None GI: Colon polyps, Chronic constipation : Benign prostate hypertrophy HEENT: None Psych: None Musculoskeletal: None Derm: Other - Past Surgical History Past Surgical History: Yes General: Colonoscopy HEENT: Tonsil/Adenoidectomy - Present Medications Home Medications: Ambulatory Orders Medication Instructions Recorded Confirmed Selegiline HCl 5 mg PO BID 06/06/14 12/29/22 Carbidopa/Levodopa 25/100 [Sinemet 1.5 tab PO TID 05/21/22 12/29/22 25 mg/100 mg] Metoprolol Succinate [Toprol Xl] 50 mg PO DAILY 05/28/22 12/29/22 Aspirin EC [Ecotrin] 81 mg PO DAILY #30 tablet 05/30/22 12/29/22 Lisinopril [Zestril] 10 mg PO QPM #30 tablet 05/30/22 12/29/22 diltiaZEM CD [Cardizem Cd] 120 mg PO DAILY #30 cap 05/30/22 12/29/22 polyethylene glycoL 3350(BULK) 17 gm PO DAILY PRN #1 each 09/30/22 12/29/22 [Miralax] Tamsulosin [Flomax] 0.4 mg PO DAILY #15 cap 12/26/22 12/29/22 - Allergies Allergies/Adverse Reactions: Allergies Allergy/AdvReac Type Severity Reaction Status Date / Time Sulfa (Sulfonamide Allergy Rash Verified 01/02/23 09:26 Antibiotics) - Social History Does the pt smoke?: No Smoking Status: Never smoker Does the pt drink ETOH?: Yes Does the pt have substance abuse?: No - Immunizations Immunizations are current?: Yes - POLST Patient has POLST: No PD ED PE NORMAL - Vitals Vital signs reviewed: Yes - General General: Alert and oriented X 3, Well developed/nourished - HEENT HEENT: Atraumatic, Pharynx benign - Neck Neck: Supple, no meningeal sign, No adenopathy - Cardiac Cardiac: RRR, No murmur - Respiratory Respiratory: Clear bilaterally - Abdomen Abdomen: Soft, Other (tender and distended in suprapubic/bladder area. Upper abd not tender. ) - Derm Derm: Normal color, Warm and dry - Extremities Extremities: Normal ROM s pain (with some stiffness of muscle movement c/w Parkinsons. ), No edema, No calf tenderness / cord - Neuro Neuro: Alert and oriented X 3, No motor deficit, Normal speech Results - Vitals Vitals: Oxygen O2 Source Room air - Labs Labs: Laboratory Tests 01/01/23 01/01/23 01/01/23 10:08 10:08 12:30 WBC 6.8 RBC 4.18 L Hgb 12.5 L Hct 37.9 L MCV 90.7 MCH 29.9 MCHC 33.0 RDW 12.4 Plt Count 240 MPV 8.5 Neut # (Auto) 4.5 Lymph # (Auto) 1.5 [place] # (Auto) 0.5 Eos # (Auto) 0.1 Baso # (Auto) 0.1 Absolute Nucleated RBC 0.00 Nucleated RBC % 0.0 Sodium 136 Potassium 4.1 Chloride 103 Carbon Dioxide 29 Anion Gap 4.0 L BUN 19 Creatinine 0.9 Estimated GFR (MDRD) 82 L Glucose 92 Calcium 9.3 Magnesium 2.0 Total Bilirubin 0.9 AST 14 ALT 14 Alkaline Phosphatase 46 Total Protein 6.4 Albumin 4.2 Globulin 2.2 Albumin/Globulin Ratio 1.9 Lipase 28 Vitamin B12 545 TSH 1.26 Urine Color YELLOW Urine Clarity CLEAR Urine pH 6.0 Ur Specific [place] 1.015 Urine Protein NEGATIVE Urine Glucose (UA) NEGATIVE Urine Ketones NEGATIVE Urine Occult Blood NEGATIVE Urine Nitrite NEGATIVE Urine Bilirubin NEGATIVE Urine Urobilinogen 0.2 (NORMAL) Ur Leukocyte Esterase NEGATIVE Ur Microscopic Review NOT INDICATED Urine Culture Comments NOT INDICATED PD Medical Decision Making - ED course Complexity details: reviewed results (looked at basic labs such as CBC, chemistry panel, UA to eval for causes of weakness. No notable abnormal labs. Consider side efefect of the tamsulosin as current symptoms correspond with starting it.), re-evaluated patient (he is feeling some better eith joe back in and bladder not distended. ), considered differential (onset of weakness with some lightheadedness was after prior visit. Was uncofmrotable initially with urinary retention without specifically recognizing that was it. ), d/w patient Departure - Departure Disposition: 01 Home, Self Care Clinical Impression: Urinary retention, Generalized weakness Condition: Stable Record reviewed to determine appropriate education?: Yes Comments: You did have an excess of urine again today in the bladder. We replaced the catheter. Follow-up with urology as planned. You could call their office and see if they are wanting to see you a little bit sooner otherwise at the upcoming appointment. No signs of urinary infection. Your blood tests are again looking okay without any signs of electrolyte abnormalities or such. Your weakness symptoms could possibly be from the tamsulosin medication prescribed for your prostate. It would not be a common reaction or side effect but the timing would be indicative. I would hold the tamsulosin and not continue it. Stay well-hydrated. See if your general weakness improves in the next day or 2. Continue your other usual medicines. Forms: PCP List Discharge Date/Time: 01/01/23 13:26
[2023-01-01] MEDS ORDERED: SODIUM CHLORIDE 0.9% 1,000 ML IV STA (10:00)
[2023-01-01 10:13] LABS: BASOPHILS # (AUTO) 0.1 10^3/uL (0.0-0.1); BASOPHILS % (AUTO) 0.7 %; EOSINOPHILS # (AUTO) 0.1 10^3/uL (0.0-0.7); EOSINOPHILS % (AUTO) 1.6 %; HCT - HEMATOCRIT 37.9 % (42.0-52.0); HGB - HEMOGLOBIN 12.5 g/dL (14.0-18.0); LYMPHOCYTES # (AUTO) 1.5 10^3/uL (1.5-3.5); LYMPHOCYTES % (AUTO) 21.9 %; MEAN CORPUSCULAR HEMOGLOBIN 29.9 pg (27.0-31.0); MEAN CORPUSCULAR VOLUME 90.7 fL (80.0-94.0); MEAN PLATELET VOLUME 8.5 fL (7.4-11.4); MONOCYTES # (AUTO) 0.5 10^3/uL (0.0-1.0); MONOCYTES % (AUTO) 7.7 %; NEUTROPHILS # (AUTO) 4.5 10^3/uL (1.5-6.6); NEUTROPHILS % (AUTO) 67.1 %; PLT - PLATELET COUNT 240 10^3/uL (130-450); RED BLOOD COUNT 4.18 10^6/uL (4.70-6.10); RED CELL DISTRIBUTION WIDTH 12.4 % (12.0-15.0); WHITE BLOOD COUNT 6.8 x10^3/uL (4.8-10.8)
[2023-01-01 10:29] LABS: ALBUMIN 4.2 g/dL (3.2-5.5); ALBUMIN/GLOBULIN RATIO 1.9 (1.0-2.2); BILIRUBIN,TOTAL 0.9 mg/dL (0.2-1.0); CALCIUM 9.3 mg/dL (8.5-10.3); CREATININE 0.9 mg/dL (0.6-1.3); POTASSIUM 4.1 mmol/L (3.5-4.5); TOTAL PROTEIN 6.4 g/dL (6.4-8.9)
[2023-01-01 11:18] LABS: THYROID STIMULATING HORMONE 1.26 uIU/mL (0.34-5.60)
[2023-01-01] MEDS ORDERED: cephALEXin 250 MG CAPSULE PO STA (12:09)
[2023-01-01 12:15] VITALS: BP 145/108
[2023-01-01 12:40] LABS: BILIRUBIN,URINE NEGATIVE (NEGATIVE); GLUCOSE, URINE (UA) NEGATIVE (NEGATIVE); KETONES,URINE (UA) NEGATIVE (NEGATIVE); LEUKOCYTE ESTERASE, URINE NEGATIVE (NEGATIVE); NITRITE,URINE NEGATIVE (NEGATIVE); OCCULT BLOOD,URINE NEGATIVE (NEGATIVE); PROTEIN,URINE NEGATIVE (NEGATIVE); UROBILINOGEN,URINE 0.2 (NORMAL) E.U./dL (NORMAL)
[2023-01-01 12:41] LABS: CLARITY,URINE CLEAR (CLEAR)
== END 2023-01-01 13:26 | disposition home or self-care (01) ==
LOC: EDUNIT# → ED 09:13
DX: R33.9 Retention of urine, unspecified (principal); R53.1 Weakness; I10 Essential (primary) hypertension; E78.00 Pure hypercholesterolemia, unspecified; I48.91 Unspecified atrial fibrillation; G20.A1 Parkinson's disease without dyskinesia, without mention of fluctuations; Z79.899 Other long term (current) drug therapy; Z79.82 Long term (current) use of aspirin
CPT/HCPCS: 36415; 80053; 81003; 82607; 83690; 83735; 84443; 85025; 99283; A9270; 81001; 87086

== ENCOUNTER 2023-01-02 09:01 | Outpatient (CLI) | payer MEDICARE, OTHER | END 2023-01-02 09:02 | disposition critical access hospital (66) | LOC: EMS 09:01 | DX: R55 Syncope and collapse (principal); R41.0 Disorientation, unspecified; R68.2 Dry mouth, unspecified; I48.91 Unspecified atrial fibrillation | CPT/HCPCS: A0425; A0427 ==

== ENCOUNTER 2023-01-02 09:14 | Emergency (ER) | payer MEDICARE, OTHER ==
--- NOTE | 2023-01-02 09:59 | XRAY Report ---
PROCEDURE: Chest 1 View X-Ray INDICATIONS: weakness TECHNIQUE: One view of the chest was acquired. COMPARISON: 12/26/2022. FINDINGS: Surgical changes and devices: None. Lungs and pleura: No pleural effusions or pneumothorax. Lungs are clear. Mediastinum: Mediastinal contours appear normal. Heart size is normal. Bones and chest wall: No suspicious bony lesions. Overlying soft tissues appear unremarkable. IMPRESSION: No acute cardiopulmonary process. Reviewed by: Toby Nova MD on 01/02/2023 9:58 AM PDT Approved by: Toby Nova MD on 01/02/2023 9:58 AM PDT Station ID: [id number]
[2023-01-02 10:00] LABS: BASOPHILS % (AUTO) 0.5 %; EOSINOPHILS # (AUTO) 0.1 10^3/uL (0.0-0.7); EOSINOPHILS % (AUTO) 1.7 %; HCT - HEMATOCRIT 38.6 % (42.0-52.0); HGB - HEMOGLOBIN 12.4 g/dL (14.0-18.0); LYMPHOCYTES # (AUTO) 1.3 10^3/uL (1.5-3.5); LYMPHOCYTES % (AUTO) 16.8 %; MEAN CORPUSCULAR HGB CONC 32.1 g/dL (32.0-36.0); MEAN CORPUSCULAR VOLUME 93.5 fL (80.0-94.0); MEAN PLATELET VOLUME 8.8 fL (7.4-11.4); MONOCYTES # (AUTO) 0.6 10^3/uL (0.0-1.0); MONOCYTES % (AUTO) 7.9 %; NEUTROPHILS # (AUTO) 5.7 10^3/uL (1.5-6.6); NEUTROPHILS % (AUTO) 72.7 %; PLT - PLATELET COUNT 247 10^3/uL (130-450); RED BLOOD COUNT 4.13 10^6/uL (4.70-6.10); RED CELL DISTRIBUTION WIDTH 12.5 % (12.0-15.0); WHITE BLOOD COUNT 7.9 x10^3/uL (4.8-10.8)
[2023-01-02 10:20] LABS: ALBUMIN 3.9 g/dL (3.2-5.5); CALCIUM 9.1 mg/dL (8.5-10.3); CREATININE 0.9 mg/dL (0.6-1.3); POTASSIUM 4.2 mmol/L (3.5-4.5); TOTAL PROTEIN 5.9 g/dL (6.4-8.9)
[2023-01-02] MEDS ORDERED: SODIUM CHLORIDE 0.9% 500 ML IV STA (10:20)
--- NOTE | 2023-01-02 11:28 | CT Report ---
PROCEDURE: HEAD WO INDICATIONS: confusion TECHNIQUE: Noncontrast 4.5 mm thick angled axial sections acquired from the foramen magnum to the vertex. For r adiation dose reduction, the following was used: automated exposure control, adjustment of mA and/or kV according to patient size. COMPARISON: 09/04/2021. FINDINGS: Image quality: Excellent. CSF spaces: Basal cisterns are patent. No extra-axial fluid collections. Ventricles are normal in size and shape. Brain: Stable findings. No midline shift. No intracranial masses or hemorrhage. Rivers-white matter i nterface is normal. Age-related volume loss and small vessel ischemic change. Skull and face: Calvarium and visualized facial bones are intact, without suspicious lesions. Sinuses: Visualized sinuses and mastoids are clear. IMPRESSION: No acute intracranial pathology. Reviewed by: Zohaib Martinez MD on 01/02/2023 11:27 AM PDT Approved by: Zohaib Martinez MD on 01/02/2023 11:27 AM PDT Station ID: [id number]
--- NOTE | 2023-01-02 11:43 | ED Physician Documentation ---
History of Present Illness - Stated complaint Stated Complaint: SYNCOPE - Chief complaint Chief Complaint: General - History obtained from History obtained from: Patient - Additonal information Additional information: Patient is a 77-year-old male presenting for evaluation of generalized weakness. He has had several recent visits to the emergency department over the past week with feelings of generalized fatigue as well as issues with urinary retention. He was seen yesterday with labs which were reassuring. Kamara catheter was placed due to urinary retention. Patient states that this morning he tried to get up but felt like his legs had no strength or power in them. He denies hitting his head or falling. He denies fever, chest pain, shortness of air, abdominal symptoms. Review of Systems Constitutional: denies: Fever Cardiac: denies: Chest pain / pressure Respiratory: denies: Dyspnea GI: denies: Abdominal Pain, Vomiting Neurologic: reports: Generalized weakness. denies: Headache PD PAST MEDICAL HISTORY - Past Medical History Past Medical History: Yes Cardiovascular: Hypertension, High cholesterol, Atrial fibrillation Respiratory: None Neuro: Parkinson's Endocrine/Autoimmune: None GI: Colon polyps, Chronic constipation : Benign prostate hypertrophy HEENT: None Psych: None Musculoskeletal: None Derm: Other - Past Surgical History Past Surgical History: Yes General: Colonoscopy HEENT: Tonsil/Adenoidectomy - Present Medications Home Medications: Ambulatory Orders Medication Instructions Recorded Confirmed Selegiline HCl 5 mg PO BID 06/06/14 12/29/22 Carbidopa/Levodopa 25/100 [Sinemet 1.5 tab PO TID 05/21/22 12/29/22 25 mg/100 mg] Metoprolol Succinate [Toprol Xl] 50 mg PO DAILY 05/28/22 12/29/22 Aspirin EC [Ecotrin] 81 mg PO DAILY #30 tablet 05/30/22 12/29/22 Lisinopril [Zestril] 10 mg PO QPM #30 tablet 05/30/22 12/29/22 diltiaZEM CD [Cardizem Cd] 120 mg PO DAILY #30 cap 05/30/22 12/29/22 polyethylene glycoL 3350(BULK) 17 gm PO DAILY PRN #1 each 09/30/22 12/29/22 [Miralax] Tamsulosin [Flomax] 0.4 mg PO DAILY #15 cap 12/26/22 12/29/22 - Allergies Allergies/Adverse Reactions: Allergies Allergy/AdvReac Type Severity Reaction Status Date / Time Sulfa (Sulfonamide Allergy Rash Verified 01/02/23 09:26 Antibiotics) - Social History Does the pt smoke?: No Smoking Status: Never smoker Does the pt drink ETOH?: Yes Does the pt have substance abuse?: No - Immunizations Immunizations are current?: Yes - POLST Patient has POLST: No PD ED PE NORMAL - General General: Alert and oriented X 3, No acute distress, Well developed/nourished - HEENT HEENT: Atraumatic, Moist mucous membranes, Pharynx benign - Neck Neck: Supple, no meningeal sign - Cardiac Cardiac: RRR, No murmur - Respiratory Respiratory: No respiratory distress, Clear bilaterally - Abdomen Abdomen: Normal bowel sounds, Soft, Non tender, Non distended - Derm Derm: Warm and dry - Extremities Extremities: No deformity - Neuro Neuro: Alert and oriented X 3, director industrial nursing 2-12 intact, No motor deficit, No sensory deficit, Normal speech Results - Vitals Vitals: Vital Signs - 24 hr 01/02/23 01/02/23 01/02/23 09:22 09:47 12:30 Temperature 36.9 C 36.5 C Heart Rate 59 L 63 66 Respiratory 18 13 18 Rate Blood Pressure 153/96 H 150/83 H 156/79 H O2 Saturation 100 100 100 01/02/23 14:00 Temperature Heart Rate 71 Respiratory 16 Rate Blood Pressure 156/95 H O2 Saturation 99 Oxygen O2 Source Room air - EKG (time done) 0951 EKG releavant findings:: EKG personally interpreted by author of this note. Relevant findings are: Rate 55, normal sinus rhythm, no STEMI, QTc 394 - Labs Labs: Laboratory Tests 01/02/23 01/02/23 09:55 09:55 WBC 7.9 RBC 4.13 L Hgb 12.4 L Hct 38.6 L MCV 93.5 MCH 30.0 MCHC 32.1 RDW 12.5 Plt Count 247 MPV 8.8 Neut # (Auto) 5.7 Lymph # (Auto) 1.3 L [place] # (Auto) 0.6 Eos # (Auto) 0.1 Baso # (Auto) 0.0 Absolute Nucleated RBC 0.00 Nucleated RBC % 0.0 Sodium 136 Potassium 4.2 Chloride 105 Carbon Dioxide 27 Anion Gap 4.0 L BUN 15 Creatinine 0.9 Estimated GFR (MDRD) 82 L Glucose 89 Calcium 9.1 Total Bilirubin 1.0 AST 17 ALT 10 Alkaline Phosphatase 43 Total Protein 5.9 L Albumin 3.9 Globulin 2.0 L Albumin/Globulin Ratio 2.0 Lipase 24 PD Medical Decision Making - ED course Complexity details: reviewed results, re-evaluated patient, d/w patient ED course: Patient is a 77-year-old male with a history of Parkinson's presenting for evaluation of generalized weakness. He has had a few visits over the past week with weakness and also issues with urinary retention. He was seen yesterday and had a catheter placed which has been functioning well with clear appearing urine. No symptoms to suggest a UTI. Patient has stable vital signs. No focal deficits. Answers questions appropriately. There was some initial reports of possible confusion so a head CT was done which I reviewed and there is no intracranial hemorrhage but again patient appears to be quite oriented here.He also has no deficits to suggest a stroke. CBC and chemistries were obtained and reviewed and without significant findings. No symptoms to suggest ACS. EKG is nonischemic.Chest x-ray is negative for pneumonia. Patient was given IV fluids here. We did ambulate him and he is able to ambulate with a walker but is quite weak on his own. I did ask for social work to see him as he has had several visits here over the past 1 week with unremarkable work-ups.Please see social services designee note for further details. Ultimately at this time patient is no indication for admission to the hospital. He is able to ambulate with assistance here and does have family help at home. Patient has an appointment with his PCP next week. Patient is advised on return precautions. Departure - Departure Disposition: 01 Home, Self Care Clinical Impression: Generalized weakness, Urinary retention Condition: Stable Instructions: ED Weakness [facility] Follow-Up: Kaila Vicente MD [Primary Care Provider] - Comments: At this time I am not seeing Reason for admission to the hospital. You are slightly anemic which has been unchanged on recent checks of your labs. The CT scan of your brain also does not show any bleeding or other findings to explain your weakness. You do appear to be quite weak and we have had our social services designee meet with you to discuss options for additional assistance at home or facilities. Please make sure you follow-up with your primary care provider as scheduled next week. Return to the emergency department with worsening symptoms Or any new concerns. Forms: PCP List Discharge Date/Time: 01/02/23 15:16
[2023-01-02 14:11] VITALS: BP 156/95; O2SAT 99
== END 2023-01-02 15:16 | disposition home or self-care (01) ==
LOC: EDUNIT# → ED 09:14
DX: R33.9 Retention of urine, unspecified (principal); R53.1 Weakness; I10 Essential (primary) hypertension; E78.00 Pure hypercholesterolemia, unspecified; I48.91 Unspecified atrial fibrillation; G20.A1 Parkinson's disease without dyskinesia, without mention of fluctuations; Z79.82 Long term (current) use of aspirin; Z79.899 Other long term (current) drug therapy
CPT/HCPCS: 36415; 80053; 83690; 85025; 93005; 99283; 99284

== ENCOUNTER 2023-01-15 14:56 | Outpatient (CLI) | payer MEDICARE, OTHER | END 2023-01-15 14:57 | disposition EMS.NT | LOC: EMS 14:56 | DX: Z03.89 Encounter for observation for other suspected diseases and conditions ruled out (principal) ==

== ENCOUNTER 2023-01-17 08:18 | Emergency (ER) | payer MEDICARE, OTHER ==
[2023-01-17 08:36] VITALS: BP 151/83; O2SAT 100
--- NOTE | 2023-01-17 09:29 | ED Physician Documentation ---
PD HPI ABD PAIN - Stated complaint Stated Complaint: DISCOMFORT - Chief complaint Chief Complaint: Abd Pain - History obtained from History obtained from: Patient - History of Present Illness Timing - onset: How many days ago (10) Timing - duration: Days (10) Timing - details: Gradual onset, Still present (he states he had not had BM for 10 days. Was not taking anything for it per se.) Quality: Fullness/distended, Other (also feeling not emptying bladder well in addition to constipation. Not feeling rectal fullness per se.) Improved by: Laying still Worsened by: Eating, Moving Associated symptoms: Constipation. No: Fever, Nausea, Vomiting, Diarrhea, Dysuria (but feeling of not emptying.) Similar symptoms before: Diagnosis (constipation.) Review of Systems Constitutional: denies: Fever Respiratory: denies: Cough GI: denies: Vomiting, Diarrhea, Bloody / black stool PD PAST MEDICAL HISTORY - Past Medical History Cardiovascular: Hypertension, High cholesterol, Atrial fibrillation Respiratory: None Neuro: Parkinson's Endocrine/Autoimmune: None GI: Colon polyps, Chronic constipation : Benign prostate hypertrophy, Indwelling catheter HEENT: None Psych: None Musculoskeletal: None Derm: Other - Past Surgical History Past Surgical History: Yes General: Colonoscopy HEENT: Tonsil/Adenoidectomy - Present Medications Home Medications: Ambulatory Orders Medication Instructions Recorded Confirmed Selegiline HCl 5 mg PO BID 06/06/14 12/29/22 Carbidopa/Levodopa 25/100 [Sinemet 1.5 tab PO TID 05/21/22 12/29/22 25 mg/100 mg] Metoprolol Succinate [Toprol Xl] 50 mg PO DAILY 05/28/22 12/29/22 Aspirin EC [Ecotrin] 81 mg PO DAILY #30 tablet 05/30/22 12/29/22 Lisinopril [Zestril] 10 mg PO QPM #30 tablet 05/30/22 12/29/22 diltiaZEM CD [Cardizem Cd] 120 mg PO DAILY #30 cap 05/30/22 12/29/22 polyethylene glycoL 3350(BULK) 17 gm PO DAILY PRN #1 each 09/30/22 12/29/22 [Miralax] Tamsulosin [Flomax] 0.4 mg PO DAILY #15 cap 12/26/22 12/29/22 Docusate Sodium 100Mg Capsule 100 mg PO DAILY #30 cap 01/17/23 [Colace 100Mg Capsule] Lactulose 15 ml PO BID PRN #240 ml 01/17/23 - Allergies Allergies/Adverse Reactions: Allergies Allergy/AdvReac Type Severity Reaction Status Date / Time Sulfa (Sulfonamide Allergy Rash Verified 01/02/23 09:26 Antibiotics) - Social History Does the pt smoke?: No Smoking Status: Never smoker Does the pt drink ETOH?: Yes Does the pt have substance abuse?: No - Immunizations Immunizations are current?: Yes - POLST Patient has POLST: No PD ED PE NORMAL - Vitals Vital signs reviewed: Yes - General General: Alert and oriented X 3, Well developed/nourished - Cardiac Cardiac: RRR, No murmur - Respiratory Respiratory: Clear bilaterally - Abdomen Abdomen: Soft, Non tender, No organomegaly, Other (he has fullness in mid to lower abd without tenderness. Bladder area feels full as well.). No: Normal bowel sounds (decreased) - Derm Derm: Normal color, Warm and dry Results - Vitals Vitals: Oxygen O2 Source Room air PD Medical Decision Making - ED course Complexity details: reviewed results (I did not feel testing/imaging needed with the description of symptoms and lack of clinical findings. ), considered differential (no abd tenderness and no complaint of pain, just fullness with constipation. He says bladder emptying not complete. He did have urine output of 300 ml here prior to nursing getting bladder scanner, so does not seem in retention. Discussed treatments for the constipation. ), d/w patient Departure - Departure Disposition: 01 Home, Self Care Clinical Impression: Abdominal fullness Constipation Qualifiers: Constipation type: unspecified constipation type Qualified Code(s): K59.00 - Constipation, unspecified Condition: Stable Record reviewed to determine appropriate education?: Yes Instructions: ED Constipation Prescriptions: Docusate Sodium 100Mg Capsule [Colace 100Mg Capsule] 100 mg PO DAILY #30 cap Lactulose 15 ml PO BID PRN #240 ml PRN Reason: Constipation Comments: Stay well-hydrated. Continue usual medicines. For your constipation, I would suggest a stool softener such as docusate daily (hold it if your stool is too loose). In addition if you are having lack of stool output, you can add a laxative on top of that such as the lactulose. You can use this twice daily if needed. Only use it if you are more constipated and not on a regular basis per se. Recheck if consistent problems. I sent your prescription to your preferred pharmacy. Forms: PCP List Discharge Date/Time: 01/17/23 10:53
[2023-01-17] MEDS ORDERED: BISACODYL 10 MG SUPP PR STA (09:55)
[2023-01-17] MEDS ORDERED: DOCUSATE SODIUM 100 MG CAPSULE PO STA (09:55)
[2023-01-17] MEDS ORDERED: LACTULOSE 10 GM /15 ML UDC PO STA (09:55)
== END 2023-01-17 10:53 | disposition home or self-care (01) ==
LOC: ED 08:18
DX: K59.00 Constipation, unspecified (principal); R14.0 Abdominal distension (gaseous); I10 Essential (primary) hypertension; E78.00 Pure hypercholesterolemia, unspecified; I48.91 Unspecified atrial fibrillation; G20.A1 Parkinson's disease without dyskinesia, without mention of fluctuations; Z79.899 Other long term (current) drug therapy; Z79.82 Long term (current) use of aspirin
CPT/HCPCS: 99282; 99283; A9270

== ENCOUNTER 2023-01-20 05:26 | Outpatient (CLI) | payer MEDICARE, OTHER | END 2023-01-20 23:59 | disposition EMS.NT | LOC: EMS 05:26 | DX: K08.89 Other specified disorders of teeth and supporting structures (principal) ==

== ENCOUNTER 2023-01-27 05:20 | Outpatient (CLI) | payer MEDICARE, OTHER | END 2023-01-27 05:21 | disposition EMS.NT | LOC: EMS 05:20 | DX: K59.00 Constipation, unspecified (principal) ==

== ENCOUNTER 2023-01-31 04:05 | Outpatient (CLI) | payer MEDICARE, OTHER | END 2023-01-31 04:06 | disposition EMS.NT | LOC: EMS 04:05 | DX: F41.9 Anxiety disorder, unspecified (principal); R53.1 Weakness; G20.A1 Parkinson's disease without dyskinesia, without mention of fluctuations ==

== ENCOUNTER 2023-01-31 18:52 | Outpatient (CLI) | payer MEDICARE, OTHER | END 2023-01-31 18:53 | disposition critical access hospital (66) | LOC: EMS 18:52 | DX: F41.9 Anxiety disorder, unspecified (principal); R10.32 Left lower quadrant pain; M53.82 Other specified dorsopathies, cervical region; G20.A1 Parkinson's disease without dyskinesia, without mention of fluctuations | CPT/HCPCS: A0425; A0429 ==

== ENCOUNTER 2023-01-31 18:56 | Emergency (ER) | payer MEDICARE, OTHER ==
--- NOTE | 2023-01-31 19:01 | ED Physician Documentation ---
History of Present Illness - Stated complaint Stated Complaint: CP, NECK PAIN, LT SIDE PAIN - History obtained from History obtained from: Patient - Additonal information Additional information: 77-year-old gentleman with longstanding Parkinson's presents by ambulance with complaints of intermittent left lower quadrant pain for the last 3 weeks after eating. Pain ranges from a 2 to a 6. He has had a couple episodes of urinary retention lately and was also constipated but seems better after therapy for that. He does not have a catheter now. No history of abdominal surgeries. No nausea or vomiting. PD PAST MEDICAL HISTORY - Past Medical History Cardiovascular: Hypertension, High cholesterol, Atrial fibrillation Respiratory: None Neuro: Parkinson's Endocrine/Autoimmune: None GI: Colon polyps, Chronic constipation : Benign prostate hypertrophy, Indwelling catheter HEENT: None Psych: None Musculoskeletal: None Derm: Other - Past Surgical History Past Surgical History: Yes General: Colonoscopy HEENT: Tonsil/Adenoidectomy - Present Medications Home Medications: Ambulatory Orders Medication Instructions Recorded Confirmed Selegiline HCl 5 mg PO BID 06/06/14 12/29/22 Carbidopa/Levodopa 25/100 [Sinemet 1.5 tab PO TID 05/21/22 12/29/22 25 mg/100 mg] Metoprolol Succinate [Toprol Xl] 50 mg PO DAILY 05/28/22 12/29/22 Aspirin EC [Ecotrin] 81 mg PO DAILY #30 tablet 05/30/22 12/29/22 Lisinopril [Zestril] 10 mg PO QPM #30 tablet 05/30/22 12/29/22 [id number] CD [Cardizem Cd] 120 mg PO DAILY #30 cap 05/30/22 12/29/22 polyethylene glycoL 3350(BULK) 17 gm PO DAILY PRN #1 each 09/30/22 12/29/22 [Miralax] Tamsulosin [Flomax] 0.4 mg PO DAILY #15 cap 12/26/22 12/29/22 Docusate Sodium 100Mg Capsule 100 mg PO DAILY #30 cap 01/17/23 [Colace 100Mg Capsule] Lactulose 15 ml PO BID PRN #240 ml 01/17/23 - Allergies Allergies/Adverse Reactions: Allergies Allergy/AdvReac Type Severity Reaction Status Date / Time Sulfa (Sulfonamide Allergy Rash Verified 01/31/23 19:01 Antibiotics) - Social History Does the pt smoke?: No Smoking Status: Never smoker Does the pt drink ETOH?: Yes Does the pt have substance abuse?: No - Immunizations Immunizations are current?: Yes - POLST Patient has POLST: No PD ED PE NORMAL - Vitals Vital signs reviewed: Yes - General General: Alert and oriented X 3, Other (Parkinsonian tremor) - Cardiac Cardiac: RRR, No murmur - Respiratory Respiratory: No respiratory distress, Clear bilaterally - Abdomen Abdomen: Normal bowel sounds, Soft, Non tender - Neuro Neuro: Alert and oriented X 3, Normal speech Results - Vitals Vitals: Vital Signs - 24 hr 01/31/23 01/31/23 19:01 19:05 Temperature 36.8 C 36.5 C Heart Rate 69 69 Respiratory 18 18 Rate Blood Pressure 142/87 H 142/87 H O2 Saturation 100 100 Oxygen O2 Source Room air - Labs Labs: Laboratory Tests 01/31/23 01/31/23 19:15 19:15 WBC 6.3 RBC 4.09 L Hgb 12.3 L Hct 37.7 L MCV 92.2 MCH 30.1 MCHC 32.6 RDW 12.5 Plt Count 250 MPV 8.4 Neut # (Auto) 3.5 Lymph # (Auto) 2.0 Stearns # (Auto) 0.6 Eos # (Auto) 0.2 Baso # (Auto) 0.1 Absolute Nucleated RBC 0.00 Nucleated RBC % 0.0 Sodium 134 L Potassium 4.3 Chloride 100 L Carbon Dioxide 30 Anion Gap 4.0 L BUN 19 Creatinine 1.0 Estimated GFR (MDRD) 73 L Glucose 94 Calcium 9.5 Total Bilirubin 0.9 AST 16 ALT 9 L Alkaline Phosphatase 47 Total Protein 6.2 L Albumin 4.2 Globulin 2.0 L Albumin/Globulin Ratio 2.1 - Rads (name of study) CT abdomen pelvis demonstrating significant stool load Relevant Findings:: Final report received, EMP independent interpretation of test PD Medical Decision Making - ED course ED course: 77-year-old gentleman with Parkinson's presents with left lower quadrant pain after eating. Benign exam. Lab work is normal save very mild hyponatremia and anemia. CT showing significant constipation and I think this is causative. He did not tolerate lactulose recently. Offered an enema here which he declined. Departure - Departure Disposition: Home, Self Care Clinical Impression: Constipation Condition: Good Record reviewed to determine appropriate education?: Yes Instructions: ED Constipation Comments: The cause of your abdominal pain tonight appears to be significant constipation. You can use MiraLAX which is available [id number]. Dissolve 1 capful of the granules in the liquid of your choice and sip it. You can do this up to 4 times a day until your bowels are running much looser. At that point your pain should be gone. Call your doctor to arrange a follow-up appointment, make the next available appointment. In the interim, return anytime if worse or if new symptoms develop.
[2023-01-31 19:19] LABS: BASOPHILS # (AUTO) 0.1 10^3/uL (0.0-0.1); BASOPHILS % (AUTO) 0.8 %; EOSINOPHILS # (AUTO) 0.2 10^3/uL (0.0-0.7); EOSINOPHILS % (AUTO) 2.4 %; HCT - HEMATOCRIT 37.7 % (42.0-52.0); HGB - HEMOGLOBIN 12.3 g/dL (14.0-18.0); LYMPHOCYTES % (AUTO) 31.2 %; MEAN CORPUSCULAR HEMOGLOBIN 30.1 pg (27.0-31.0); MEAN CORPUSCULAR HGB CONC 32.6 g/dL (32.0-36.0); MEAN CORPUSCULAR VOLUME 92.2 fL (80.0-94.0); MEAN PLATELET VOLUME 8.4 fL (7.4-11.4); MONOCYTES # (AUTO) 0.6 10^3/uL (0.0-1.0); MONOCYTES % (AUTO) 9.2 %; NEUTROPHILS # (AUTO) 3.5 10^3/uL (1.5-6.6); NEUTROPHILS % (AUTO) 55.9 %; PLT - PLATELET COUNT 250 10^3/uL (130-450); RED BLOOD COUNT 4.09 10^6/uL (4.70-6.10); RED CELL DISTRIBUTION WIDTH 12.5 % (12.0-15.0); WHITE BLOOD COUNT 6.3 x10^3/uL (4.8-10.8)
[2023-01-31 19:46] LABS: ALBUMIN 4.2 g/dL (3.2-5.5); ALBUMIN/GLOBULIN RATIO 2.1 (1.0-2.2); BILIRUBIN,TOTAL 0.9 mg/dL (0.2-1.0); CALCIUM 9.5 mg/dL (8.5-10.3); POTASSIUM 4.3 mmol/L (3.5-4.5); TOTAL PROTEIN 6.2 g/dL (6.4-8.9)
[2023-01-31] MEDS ORDERED: iohexoL-300 100 ML VIAL IVP ONE (20:26)
--- NOTE | 2023-01-31 20:57 | CT Report ---
PROCEDURE: ABDOMEN/PELVIS W INDICATIONS: IV only, left lower quadrant pain CONTRAST: 100 ML OMNI9 TECHNIQUE: After the administration of IV contrast, 5 mm thick sections acquired from the diaphragms to the symp hysis. 5 mm thick coronal and sagittal reformats were acquired. For radiation dose reduction, the f ollowing was used: automated exposure control, adjustment of mA and/or kV according to patient size. COMPARISON: None FINDINGS: Image quality: Excellent. Lung bases and heart: Unremarkable. Liver: No solid mass. Gallbladder and biliary tree: Unremarkable Spleen: No splenomegaly. Pancreas: No pancreatic ductal dilation. Adrenals: No adrenal nodule. Kidneys and ureters: No hydronephrosis. No renal cystic lesion which requires follow up. No solid mas s. Bowel and peritoneum: No bowel distension. No pathologic free fluid. Prominent colonic stool without obstruction. Lymph nodes: No central or retroperitoneal adenopathy. Vessels: No infrarenal aortic aneurysm. PELVIS Reproductive organs: Prostate gland is prominent. Bladder: No abnormal wall thickening, accounting for underdistension. Pelvic lymph nodes: No pelvic adenopathy by size criteria. Bones: No aggressive osseous abnormality. Other: No significant ventral or inguinal hernia. IMPRESSION: Prominent colonic stool suggestive constipation. No gross obstruction. Reviewed by: Soledad Ann MD on 01/31/2023 8:56 PM PST Approved by: Soledad Ann MD on 01/31/2023 8:56 PM PST Station ID: [id number]
[2023-01-31 22:17] VITALS: BP 146/90; O2SAT 100
== END 2023-01-31 22:10 | disposition home or self-care (01) ==
LOC: ED 18:56
DX: K59.00 Constipation, unspecified (principal)
CPT/HCPCS: 36415; 74177; 80053; 85025; 99283; 99284; Q9967

== ENCOUNTER 2023-02-01 15:18 | Outpatient (CLI) | payer MEDICARE, OTHER | END 2023-02-01 23:59 | disposition critical access hospital (66) | LOC: EMS 15:18 | DX: R10.32 Left lower quadrant pain (principal); K59.00 Constipation, unspecified | CPT/HCPCS: A0425; A0429 ==

== ENCOUNTER 2023-02-01 15:29 | Emergency (ER) | payer MEDICARE, OTHER ==
[2023-02-01 15:45] VITALS: BP 133/87; O2SAT 100
[2023-02-01] MEDS ORDERED: MINERAL OIL ENEMA 133 ML BOTTLE RC STA (15:50)
--- NOTE | 2023-02-01 16:14 | ED Physician Documentation ---
History of Present Illness - Stated complaint Stated Complaint: CONSTIPATION - Chief complaint Chief Complaint: Abd Pain - History obtained from History obtained from: Patient, EMS - History of Present Illness Timing: How many weeks ago (1) Pain level max: 3 Pain level now: 3 - Additonal information Additional information: 77-year-old male states that he has had difficulty with bowel movements for the past 1 week. He states he had a small bowel movement yesterday, was seen here last night had a CT scan which was normal except for constipation. He refused an enema last night but decided that he wants an enema now today. The pain is in the left lower quadrant. No fevers. No chills. No blood in the stool. Patient has a history of Parkinson's disease. Review of Systems Constitutional: denies: Fever, Chills PD PAST MEDICAL HISTORY - Past Medical History Cardiovascular: Hypertension, High cholesterol, Atrial fibrillation Respiratory: None Neuro: Parkinson's Endocrine/Autoimmune: None GI: Colon polyps, Chronic constipation : Benign prostate hypertrophy, Indwelling catheter HEENT: None Psych: None Musculoskeletal: None Derm: Other - Past Surgical History Past Surgical History: Yes General: Colonoscopy HEENT: Tonsil/Adenoidectomy - Present Medications Home Medications: Ambulatory Orders Medication Instructions Recorded Confirmed Selegiline HCl 5 mg PO BID 06/06/14 12/29/22 Carbidopa/Levodopa 25/100 [Sinemet 1.5 tab PO TID 05/21/22 12/29/22 25 mg/100 mg] Metoprolol Succinate [Toprol Xl] 50 mg PO DAILY 05/28/22 12/29/22 Aspirin EC [Ecotrin] 81 mg PO DAILY #30 tablet 05/30/22 12/29/22 Lisinopril [Zestril] 10 mg PO QPM #30 tablet 05/30/22 12/29/22 [id number] CD [Cardizem Cd] 120 mg PO DAILY #30 cap 05/30/22 12/29/22 polyethylene glycoL 3350(BULK) 17 gm PO DAILY PRN #1 each 09/30/22 12/29/22 [Miralax] Tamsulosin [Flomax] 0.4 mg PO DAILY #15 cap 12/26/22 12/29/22 Docusate Sodium 100Mg Capsule 100 mg PO DAILY #30 cap 11/10/23 [Colace 100Mg Capsule] Lactulose 15 ml PO BID PRN #240 ml 01/17/23 - Allergies Allergies/Adverse Reactions: Allergies Allergy/AdvReac Type Severity Reaction Status Date / Time Sulfa (Sulfonamide Allergy Rash Verified 01/31/23 19:01 Antibiotics) - Social History Does the pt smoke?: No Smoking Status: Never smoker Does the pt drink ETOH?: Yes Does the pt have substance abuse?: No - Immunizations Immunizations are current?: Yes - POLST Patient has POLST: No PD ED PE NORMAL - Vitals Vital signs reviewed: Yes - General General: Alert and oriented X 3, No acute distress - HEENT HEENT: PERRL, Moist mucous membranes - Neck Neck: Supple, no meningeal sign - Cardiac Cardiac: RRR, Strong equal pulses - Respiratory Respiratory: No respiratory distress, Clear bilaterally - Abdomen Abdomen: Soft, Non tender, Non distended - Derm Derm: Warm and dry - Neuro Neuro: Alert and oriented X 3 - Psych Psych: Normal mood, Normal affect Results - Vitals Vitals: Vital Signs - 24 hr 02/01/23 15:37 Temperature 37.1 C Heart Rate 66 Respiratory 18 Rate Blood Pressure 133/87 H O2 Saturation 100 Oxygen O2 Source Room air PD Medical Decision Making - ED course Complexity details: considered differential, d/w patient ED course: Patient was given 2 enemas in the emergency department had 2 large bowel movements and feels much better. No vomiting. No indication for repeat imaging or laboratory testing as these were done last night. Will have the patient continue his current medications and follow-up with his doctor for further care. Tolerating p.o. without difficulty here. No evidence of bowel obstruction or obstipation. Patient counseled regarding signs and symptoms for which I believe and urgent re-evaluation would be necessary. Patient with good understanding of and agreement to plan and is comfortable going home at this time This document was made in part using voice recognition software. While efforts are made to proofread this document, sound alike and grammatical errors may occur. Departure - Departure Disposition: 01 Home, Self Care Clinical Impression: Constipation Qualifiers: Constipation type: unspecified constipation type Qualified Code(s): K59.00 - Constipation, unspecified Condition: Good Instructions: ED Constipation Follow-Up: Kaila Vicente MD [Primary Care Provider] - Within 1 week Comments: You were given 2 enemas tonight with 2 large bowel movements. Please follow-up with your doctor for any further care. Continue your current medications at home. Return if you worsen. Make sure you are drinking plenty of water. Forms: PCP List
[2023-02-01] MEDS ORDERED: SALINE ENEMA 133 ML BOTTLE RC STA (17:49)
== END 2023-02-01 19:40 | disposition home or self-care (01) ==
LOC: EDUNIT# → ED 15:29
DX: K59.00 Constipation, unspecified (principal)
CPT/HCPCS: 99283; A9270

== ENCOUNTER 2023-03-10 16:12 | Outpatient (CLI) | payer MEDICARE, OTHER | END 2023-03-10 23:59 | disposition EMS.NT | LOC: EMS 16:12 | DX: F41.9 Anxiety disorder, unspecified (principal) ==

== ENCOUNTER 2023-03-20 15:27 | Outpatient (CLI) | payer MEDICARE, OTHER | END 2023-03-20 15:28 | disposition EMS.NT | LOC: EMS 15:27 | DX: T17.928A Food in respiratory tract, part unspecified causing other injury, initial encounter (principal); W44.F3XA Food entering into or through a natural orifice, initial encounter; Y93.89 Activity, other specified; Y92.009 Unspecified place in unspecified non-institutional (private) residence as the place of occurrence of the external cause ==

== ENCOUNTER 2023-03-26 16:53 | Outpatient (CLI) | payer MEDICARE, OTHER | END 2023-03-26 16:54 | disposition EMS.NT | LOC: EMS 16:53 | DX: R10.32 Left lower quadrant pain (principal) ==

== ENCOUNTER 2023-05-12 11:21 | Emergency (ER) | payer MEDICARE, OTHER ==
--- NOTE | 2023-05-12 12:22 | ED Physician Documentation ---
PD HPI HEAD INJURY - Stated complaint Stated Complaint: GLF, HEAD PX, RT SHOULDER/HIP - Chief complaint Chief Complaint: Trauma Hd/Nk - History obtained from History obtained from: Patient - History of Present Illness Mechanism of head injury: Fell Where head injury occurred: Home Timing - onset: Today (lost balance and fell to right, pain at shoulder, lateral hip and some to lateral chest. Did hit head with mild headache.) Location of injury: Right (shoulder and hip area.) Quality of pain: Pain Associated symptoms: No: LOC, AMS Symptoms worsen with: Palpation, Movement (lifting right shoulder up hurts at clavicle area.) Contributing factors: No: Anticoagulated Similar symptoms before: Has not had sx before Review of Systems Cardiac: reports: Chest pain / pressure (right lateral ribs area) GI: denies: Abdominal Pain Neurologic: reports: Head injury. denies: Focal weakness, Numbness, Confused, Altered mental status, LOC PD PAST MEDICAL HISTORY - Past Medical History Past Medical History: Yes Cardiovascular: Hypertension, High cholesterol, Atrial fibrillation Respiratory: None Neuro: Parkinson's Endocrine/Autoimmune: None GI: Colon polyps, Chronic constipation : Benign prostate hypertrophy, Indwelling catheter HEENT: None Psych: None Musculoskeletal: None Derm: Other - Past Surgical History Past Surgical History: Yes General: Colonoscopy HEENT: Tonsil/Adenoidectomy - Present Medications Home Medications: Ambulatory Orders Medication Instructions Recorded Confirmed Selegiline HCl 5 mg PO BID 06/06/14 05/12/23 Carbidopa/Levodopa 25/100 [Sinemet 1.5 tab PO TID 05/21/22 05/12/23 25 mg/100 mg] Metoprolol Succinate [Toprol Xl] 50 mg PO DAILY 05/28/22 05/12/23 Aspirin EC [Ecotrin] 81 mg PO DAILY #30 tablet 05/30/22 05/12/23 Lisinopril [Zestril] 10 mg PO QPM #30 tablet 05/30/22 05/12/23 [id number] CD [Cardizem Cd] 120 mg PO DAILY #30 cap 05/30/22 05/12/23 polyethylene glycoL 3350(BULK) 17 gm PO DAILY PRN #1 each 09/30/22 05/12/23 [Miralax] Tamsulosin [Flomax] 0.4 mg PO DAILY #15 cap 12/26/22 05/12/23 Docusate Sodium 100Mg Capsule 100 mg PO DAILY #30 cap 01/17/23 05/12/23 [Colace 100Mg Capsule] Lactulose 15 ml PO BID PRN #240 ml 01/17/23 05/12/23 Lactulose 15 ml PO BID PRN #240 ml 03/30/23 05/12/23 Wheat Dextrin [Fiber Supplement] 10 gm PO DAILY #236 gm 03/30/23 05/12/23 - Allergies Allergies/Adverse Reactions: Allergies Allergy/AdvReac Type Severity Reaction Status Date / Time Sulfa (Sulfonamide Allergy Rash Verified 05/12/23 13:09 Antibiotics) - Social History Does the pt smoke?: No Smoking Status: Never smoker Does the pt drink ETOH?: Yes Does the pt have substance abuse?: No - Immunizations Immunizations are current?: Yes - POLST Patient has POLST: No PD ED PE NORMAL - Vitals Vital signs reviewed: Yes - General General: Alert and oriented X 3, Well developed/nourished - HEENT HEENT: Moist mucous membranes, Other (some tenderness right lateral scalp without deformity. ) - Neck Neck: Supple, no meningeal sign, No bony TTP - Cardiac Cardiac: RRR, No murmur - Respiratory Respiratory: No respiratory distress, Clear bilaterally, Other (mild tender right lateral mid to lower ribs area without crapitance. ) - Abdomen Abdomen: Soft, Non tender - Derm Derm: Normal color, Warm and dry - Extremities Extremities: Other (lateral trochanter area of right hip with some tenderness. No pain with rotation nor impaction. Right shoulder tender mainly distal cl avicle. Humeral rotation without pain. ) - Neuro Neuro: Alert and oriented X 3, No motor deficit, No sensory deficit, Normal speech Results - Vitals Vitals: Oxygen O2 Source Room air - Rads (name of study) head CT Relevant Findings:: Prelim report reviewed (no ICH nor acute problems.), EMP independent interpretation of test chest ribs Relevant Findings:: Prelim report reviewed (no fractures nor lung injury), EMP independent interpretation of test right hip Relevant Findings:: Prelim report reviewed, EMP independent interpretation of test (no acute osseous injury.) right shoulder Relevant Findings:: Prelim report reviewed, EMP independent interpretation of test (distal clavicle shaft fracture minimally displaced. Normal humerus. ) PD Medical Decision Making - ED course Complexity details: reviewed results, considered differential (poor balance due to Parkinsons and fell. Injury mainly shoulder/clavicle with fracture thee. Pain/tender lateral hip, ribs, did strike scalp too. Normal imaging in those areas. ), d/w patient Departure - Departure Disposition: 01 Home, Self Care Clinical Impression: Fall, accidental, Clavicle fracture, Contusion, hip, Head contusion Condition: Stable Record reviewed to determine appropriate education?: Yes Instructions: ED Fx Clavicle Comments: The CT scan of your head did not show any bleeding or signs of obvious injury. X-ray of your hip and chest/ribs did not show any acute abnormality. The shoulder x-ray did show collarbone/clavicle fracture towards the end of the shaft. This will hurt with lifting the arm, push pull and overhead reaching. Activity as tolerated with it. We did give you a sling to help with reduced motion. Regular Tylenol as needed for pains. You can add some ibuprofen or naproxen if needed. Typically just less motion and being nice to it will be mostly sufficient to help with the pain. Sitting and sleeping in position best comfortable. Some people find propped up to be better. This should decrease in severity of pain over several days to a week but take about a month or so for it to heal. Follow-up with your primary care. Forms: PCP List Discharge Date/Time: 05/12/23 15:56
[2023-05-12 12:29] VITALS: O2SAT 100
[2023-05-12] MEDS: ACETAMINOPHEN 325 MG TABLET PO STA (13:03)
--- NOTE | 2023-05-12 14:53 | XRAY Report ---
PROCEDURE: Chest 1V INDICATIONS: fall with right lateral lower chest pain TECHNIQUE: One view of the chest was acquired. COMPARISON: 01/02/2023. FINDINGS: Surgical changes and devices: None. Lungs and pleura: No pleural effusions or pneumothorax. Lungs are clear. Mediastinum: Mediastinal contours appear normal. Heart size is normal. Bones and chest wall: No suspicious bony lesions. Overlying soft tissues appear unremarkable. IMPRESSION: No acute cardiopulmonary process. Reviewed by: Sam De MD on 05/12/2023 2:52 PM PST Approved by: Sam De MD on 05/12/2023 2:52 PM PST Station ID: [id number]
--- NOTE | 2023-05-12 14:54 | CT Report ---
PROCEDURE: Head WO INDICATIONS: fall with struck head, head pain TECHNIQUE: Noncontrast 4.5 mm thick angled axial sections acquired from the foramen magnum to the vertex. For r adiation dose reduction, the following was used: automated exposure control, adjustment of mA and/or kV according to patient size. COMPARISON: None. FINDINGS: Image quality: Excellent. The ventricular system and cortical sulci demonstrate atrophy, consistent for patient's stated age. There are areas of hypodensity in the periventricular and subcortical white matter. There is no acut e intra or extra-axial fluid collection. No acute hemorrhage, mass lesion or midline shift. Brainst em is unremarkable. Globes are symmetrical. Sinuses are aerated. Osseous structures are intact. IMPRESSION: 1. No acute intracranial process. 2. Mild atrophy and chronic microvascular ischemic changes. Reviewed by: Soledad Ann MD on 05/12/2023 2:53 PM PST Approved by: Soledad Ann MD on 05/12/2023 2:53 PM PST Station ID: [id number]
--- NOTE | 2023-05-12 14:54 | XRAY Report ---
PROCEDURE: Hip w/Pelvis 2-3V RT INDICATIONS: fall to right side, pain there TECHNIQUE: 2 views of the hip were acquired. COMPARISON: 01/15/2019 FINDINGS: Bones: No fractures or dislocations. Mild degenerative changes bilateral hips. No suspicious bony le sions. Soft tissues: No suspicious soft tissue calcifications or masses. IMPRESSION: No acute bony abnormality. Reviewed by: Sam De MD on 05/12/2023 2:53 PM PST Approved by: Sam De MD on 05/12/2023 2:53 PM PST Station ID: [id number]
--- NOTE | 2023-05-12 14:55 | XRAY Report ---
PROCEDURE: Shoulder 2+V RT INDICATIONS: fall with pain right shoulder TECHNIQUE: 3 views of the shoulder were acquired. COMPARISON: None. FINDINGS: Bones: Mildly displaced fracture of the distal clavicle. No suspicious bony lesions. Visualized ri bs appear intact. Soft tissues: No suspicious soft tissue calcifications. The visualized lungs are within normal limi ts. IMPRESSION: Mildly displaced fracture of the distal clavicle. Reviewed by: Sam De MD on 05/12/2023 2:54 PM PST Approved by: Sam De MD on 05/12/2023 2:54 PM PST Station ID: [id number]
[2023-05-12 16:03] VITALS: BP 144/83
== END 2023-05-12 15:56 | disposition home or self-care (01) ==
LOC: ED 11:21
DX: S42.031A Displaced fracture of lateral end of right clavicle, initial encounter for closed fracture (principal); S09.90XA Unspecified injury of head, initial encounter; W18.30XA Fall on same level, unspecified, initial encounter; I10 Essential (primary) hypertension; I48.91 Unspecified atrial fibrillation
CPT/HCPCS: 70450; 71045; 73030; 73502; 99283; 99284; A9270

== ENCOUNTER 2023-05-12 19:36 | Outpatient (CLI) | payer MEDICARE, OTHER | END 2023-05-12 19:37 | disposition EMS.NT | LOC: EMS 19:36 | DX: S61.412A Laceration without foreign body of left hand, initial encounter (principal); X58.XXXA Exposure to other specified factors, initial encounter ==

== ENCOUNTER 2023-05-29 15:17 | Outpatient (CLI) | payer MEDICARE, OTHER | END 2023-05-29 23:59 | disposition EMS.NT | LOC: EMS 15:17 | DX: Z03.89 Encounter for observation for other suspected diseases and conditions ruled out (principal) ==

== ENCOUNTER 2023-09-27 09:58 | Outpatient (CLI) | payer MEDICARE, OTHER | END 2023-09-27 23:59 | disposition critical access hospital (66) | LOC: EMS 09:58 | DX: R40.4 Transient alteration of awareness (principal) | CPT/HCPCS: A0425; A0429 ==

== ENCOUNTER 2023-09-27 10:03 | Emergency (ER) | payer MEDICARE, OTHER ==
[2023-09-27 10:14] VITALS: O2SAT 100
[2023-09-27 10:23] LABS: BASOPHILS % (AUTO) 0.7 %; EOSINOPHILS # (AUTO) 0.1 10^3/uL (0.0-0.7); EOSINOPHILS % (AUTO) 2.3 %; HCT - HEMATOCRIT 41.6 % (42.0-52.0); HGB - HEMOGLOBIN 13.4 g/dL (14.0-18.0); LYMPHOCYTES # (AUTO) 1.3 10^3/uL (1.5-3.5); LYMPHOCYTES % (AUTO) 22.7 %; MEAN CORPUSCULAR HEMOGLOBIN 29.5 pg (27.0-31.0); MEAN CORPUSCULAR HGB CONC 32.2 g/dL (32.0-36.0); MEAN CORPUSCULAR VOLUME 91.6 fL (80.0-94.0); MEAN PLATELET VOLUME 8.7 fL (7.4-11.4); MONOCYTES # (AUTO) 0.4 10^3/uL (0.0-1.0); MONOCYTES % (AUTO) 7.7 %; NEUTROPHILS # (AUTO) 3.7 10^3/uL (1.5-6.6); NEUTROPHILS % (AUTO) 65.7 %; PLT - PLATELET COUNT 221 10^3/uL (130-450); RED BLOOD COUNT 4.54 10^6/uL (4.70-6.10); WHITE BLOOD COUNT 5.6 x10^3/uL (4.8-10.8)
--- NOTE | 2023-09-27 10:36 | ED Physician Documentation ---
PD HPI SYNCOPE - Stated complaint Stated Complaint: SEIZURE - Chief complaint Chief Complaint: Neuro - History obtained from History obtained from: Patient, EMS - History of Present Illness Witnessed: Witnessed Timing - onset: Today Preceding symptoms: No: Headache, Vision changes, Chest pain, Palpitations, Dyspnea, Abdominal pain, Nausea / vomiting, Light headed, Generalized weakness Associated symptoms: No: Seizure, Headache Pain level max: 0 Pain level now: 0 Recently seen: Not recently seen - Additional information Additional information: Patient is a 77-year-old male with a history of Parkinson's disease who was at a restaurant today with his friends when he had a staring episode into space. Lasted for about 60 to 90 seconds. No postictal period. No seizure-like activity. Patient states he does not recall the event. No palpitations. No lightheadedness or dizziness. He states he did feel sweaty just prior to this event. No nausea or vomiting. No abdominal pain. No chest pain. Feels normal now. He states he took his carbidopa and levodopa as prescribed. He states he does normally take it with food and did not take it with food today. Denies any recent illnesses. No fevers, cough, congestion. Nothing makes it better or worse. Has not had similar symptoms previously. Currently asymptomatic. PD PAST MEDICAL HISTORY - Past Medical History Cardiovascular: Hypertension, High cholesterol, Atrial fibrillation Respiratory: None Neuro: Parkinson's Endocrine/Autoimmune: None GI: Colon polyps, Chronic constipation : Benign prostate hypertrophy, Indwelling catheter HEENT: None Psych: None Musculoskeletal: None Derm: Other - Past Surgical History Past Surgical History: Yes General: Colonoscopy HEENT: Tonsil/Adenoidectomy - Present Medications Home Medications: Ambulatory Orders Medication Instructions Recorded Confirmed Selegiline HCl 5 mg PO BID 06/06/14 05/12/23 Carbidopa/Levodopa 25/100 [Sinemet 1.5 tab PO TID 05/21/22 05/12/23 25 mg/100 mg] Metoprolol Succinate [Toprol Xl] 50 mg PO DAILY 05/28/22 05/12/23 Aspirin EC [Ecotrin] 81 mg PO DAILY #30 tablet 05/30/22 05/12/23 Lisinopril [Zestril] 10 mg PO QPM #30 tablet 05/30/22 05/12/23 diltiaZEM CD [Cardizem Cd] 120 mg PO DAILY #30 cap 05/30/22 05/12/23 polyethylene glycoL 3350(BULK) 17 gm PO DAILY PRN #1 each 09/30/22 05/12/23 [Miralax] Tamsulosin [Flomax] 0.4 mg PO DAILY #15 cap 12/26/22 05/12/23 Docusate Sodium 100Mg Capsule 100 mg PO DAILY #30 cap 01/17/23 05/12/23 [Colace 100Mg Capsule] Lactulose 15 ml PO BID PRN #240 ml 01/17/23 05/12/23 Lactulose 15 ml PO BID PRN #240 ml 03/30/23 05/12/23 Wheat Dextrin [Fiber Supplement] 10 gm PO DAILY #236 gm 03/30/23 05/12/23 - Allergies Allergies/Adverse Reactions: Allergies Allergy/AdvReac Type Severity Reaction Status Date / Time Sulfa (Sulfonamide Allergy Rash Verified 09/27/23 10:13 Antibiotics) - Social History Does the pt smoke?: No Smoking Status: Never smoker Does the pt drink ETOH?: Yes Does the pt have substance abuse?: No - Immunizations Immunizations are current?: Yes - POLST Patient has POLST: No PD ED PE NORMAL - Vitals Vital signs reviewed: Yes - General General: Alert and oriented X 3, No acute distress - HEENT HEENT: PERRL, Moist mucous membranes - Neck Neck: Supple, no meningeal sign - Cardiac Cardiac: RRR, Strong equal pulses - Respiratory Respiratory: No respiratory distress, Clear bilaterally - Abdomen Abdomen: Soft, Non tender, Non distended - Derm Derm: Warm and dry - Extremities Extremities: No edema, No calf tenderness / cord - Neuro Neuro: Alert and oriented X 3, neighborhood service [facility] director 2-12 intact, No motor deficit, No sensory deficit, Normal speech Eye Opening: Spontaneous Motor: Obeys Commands Verbal: Oriented GCS Score: 15 - Psych Psych: Normal mood, Normal affect - Free text exam Free text exam: nihss - 0 @ 1005 Results - Vitals Vitals: Vital Signs - 24 hr 09/27/23 09/27/23 10:09 11:16 Temperature 36.2 C L Heart Rate 70 64 Respiratory 18 14 Rate Blood Pressure 154/102 H 128/88 H O2 Saturation 100 100 Oxygen O2 Source Room air - EKG (time done) 1009 EKG releavant findings:: EKG personally interpreted by author of this note. Relevant findings are: Rate: Rate (enter#) (65) Rhythm: NSR Stearns: Normal Intervals: Normal [place] QRS: Normal Ischemia: Normal ST segments, Q waves (v1-2) - Labs Labs: Laboratory Tests 09/27/23 09/27/23 10:19 10:19 WBC 5.6 RBC 4.54 L Hgb 13.4 L Hct 41.6 L MCV 91.6 MCH 29.5 MCHC 32.2 RDW 13.0 Plt Count 221 MPV 8.7 Neut # (Auto) 3.7 Lymph # (Auto) 1.3 L Gilliam # (Auto) 0.4 Eos # (Auto) 0.1 Baso # (Auto) 0.0 Absolute Nucleated RBC 0.00 Nucleated RBC % 0.0 Sodium 136 Potassium 4.0 Chloride 102 Carbon Dioxide 29 Anion Gap 5.0 L BUN 23 H Creatinine 0.9 Estimated GFR (MDRD) 82 L Glucose 117 H Calcium 9.7 Total Bilirubin 1.5 H AST 15 ALT < 3 L Alkaline Phosphatase 54 Troponin I High Sens 2.4 Total Protein 6.7 Albumin 4.5 Globulin 2.2 Albumin/Globulin Ratio 2.0 Lipase 22 PD Medical Decision Making - ED course Complexity details: reviewed results, re-evaluated patient, considered differential, d/w patient, d/w family ED course: 77-year-old male with a history of Parkinson's presents after a staring episode today. His did arrive in the emergency department and does not want the chest x-ray, I think that is reasonable given his advanced Parkinson's. She states he does have occasional staring episodes. Likely that these are related to his Parkinson's. He did not fall, hit his head or sustain any injuries. Recommend that she follow-up with his neurologist for further evaluation of these episodes and determine if he needs any adjustment of his medications. Patient is at his normal baseline here. Afebrile. No significant lab abnormalities. No significant EKG abnormalities. Patient and family counseled regarding signs and symptoms for which I believe and urgent re-evaluation would be necessary. Patient and family with good understanding of and agreement to plan and is comfortable going home at this time This document was made in part using voice recognition software. While efforts are made to proofread this document, sound alike and grammatical errors may occur. Departure - Departure Disposition: 01 Home, Self Care Clinical Impression: Staring episodes Condition: Good Instructions: Parkinson Disease Dc Follow-Up: your,doctor in 1 week [Other] Comments: His testing does not show any acute abnormalities today as we discussed that the staring episode today is likely related to his Parkinson's disease, please follow-up with his neurologist for further care. Please return if he worsens. Forms: PCP List Discharge Date/Time: 09/27/23 11:16
[2023-09-27 10:45] LABS: TROPONIN I HIGH SENSITIVITY 2.4 ng/L (2.3-19.7)
[2023-09-27 10:46] LABS: LIPASE 22 U/L (11-82)
[2023-09-27 10:47] LABS: ALBUMIN 4.5 g/dL (3.2-5.5); ALKALINE PHOSPHATASE 54 IU/L (42-121); ALT ALANINE AMINOTRANSFERASE < 3 IU/L (10-60); AST ASPARTATE AMINOTRANSFERASE 15 IU/L (10-42); BILIRUBIN,TOTAL 1.5 mg/dL (0.2-1.0); BUN - BLOOD UREA NITROGEN 23 mg/dL (6-20); CALCIUM 9.7 mg/dL (8.5-10.3); CARBON DIOXIDE - CO2 29 mmol/L (21-32); CHLORIDE 102 mmol/L (101-111); CREATININE 0.9 mg/dL (0.6-1.3); GFR - MDRD 82 (>89); GLUCOSE 117 mg/dL (74-104); SODIUM 136 mmol/L (135-145); TOTAL PROTEIN 6.7 g/dL (6.4-8.9)
[2023-09-27 11:24] VITALS: BP 128/88
== END 2023-09-27 11:16 | disposition home or self-care (01) ==
LOC: EDUNIT# → ED 10:03
DX: R46.89 Other symptoms and signs involving appearance and behavior (principal); G20.A1 Parkinson's disease without dyskinesia, without mention of fluctuations; I48.91 Unspecified atrial fibrillation
CPT/HCPCS: 36415; 80053; 83690; 84484; 85025; 93005; 99283; 99284

== ENCOUNTER 2023-11-03 06:07 | Emergency (ER) | payer MEDICARE, OTHER ==
[2023-11-03 07:12] LABS: BASOPHILS # (AUTO) 0.1 10^3/uL (0.0-0.1); BASOPHILS % (AUTO) 0.9 %; EOSINOPHILS # (AUTO) 0.2 10^3/uL (0.0-0.7); EOSINOPHILS % (AUTO) 3.2 %; HCT - HEMATOCRIT 40.1 % (42.0-52.0); HGB - HEMOGLOBIN 13.1 g/dL (14.0-18.0); LYMPHOCYTES # (AUTO) 1.6 10^3/uL (1.5-3.5); LYMPHOCYTES % (AUTO) 26.5 %; MEAN CORPUSCULAR HGB CONC 32.7 g/dL (32.0-36.0); MEAN CORPUSCULAR VOLUME 91.8 fL (80.0-94.0); MEAN PLATELET VOLUME 9.2 fL (7.4-11.4); MONOCYTES # (AUTO) 0.5 10^3/uL (0.0-1.0); MONOCYTES % (AUTO) 9.2 %; NEUTROPHILS # (AUTO) 3.5 10^3/uL (1.5-6.6); NEUTROPHILS % (AUTO) 59.3 %; PLT - PLATELET COUNT 204 10^3/uL (130-450); RED BLOOD COUNT 4.37 10^6/uL (4.70-6.10); WHITE BLOOD COUNT 5.9 x10^3/uL (4.8-10.8)
--- NOTE | 2023-11-03 07:20 | ED Physician Documentation ---
PD HPI ABD PAIN - Stated complaint Stated Complaint: GI - Chief complaint Chief Complaint: Abd Pain - History obtained from History obtained from: Patient, Family - Additional information Additional information: He has a history of Parkinson's and presents with no BM for 2 days despite taking senna and urinary retention. He has had this issue before in the past with fecal impactions. PD PAST MEDICAL HISTORY - Past Medical History Past Medical History: Yes Cardiovascular: Hypertension, High cholesterol, Atrial fibrillation Respiratory: None Neuro: Parkinson's Endocrine/Autoimmune: None GI: Colon polyps, Chronic constipation : Benign prostate hypertrophy, Indwelling catheter HEENT: None Psych: None Musculoskeletal: None Derm: Other - Past Surgical History Past Surgical History: Yes General: Colonoscopy HEENT: Tonsil/Adenoidectomy - Present Medications Home Medications: Ambulatory Orders Medication Instructions Recorded Confirmed Selegiline HCl 5 mg PO BID 06/06/14 05/12/23 Carbidopa/Levodopa 25/100 [Sinemet 1.5 tab PO TID 05/21/22 05/12/23 25 mg/100 mg] Metoprolol Succinate [Toprol Xl] 50 mg PO DAILY 05/28/22 05/12/23 Aspirin EC [Ecotrin] 81 mg PO DAILY #30 tablet 05/30/22 05/12/23 Lisinopril [Zestril] 10 mg PO QPM #30 tablet 05/30/22 05/12/23 diltiaZEM CD [Cardizem Cd] 120 mg PO DAILY #30 cap 05/30/22 05/12/23 polyethylene glycoL 3350(BULK) 17 gm PO DAILY PRN #1 each 09/30/22 05/12/23 [Miralax] Tamsulosin [Flomax] 0.4 mg PO DAILY #15 cap 12/26/22 05/12/23 Docusate Sodium 100Mg Capsule 100 mg PO DAILY #30 cap 01/17/23 05/12/23 [Colace 100Mg Capsule] Lactulose 15 ml PO BID PRN #240 ml 01/17/23 05/12/23 Lactulose 15 ml PO BID PRN #240 ml 03/30/23 05/12/23 Wheat Dextrin [Fiber Supplement] 10 gm PO DAILY #236 gm 03/30/23 05/12/23 - Allergies Allergies/Adverse Reactions: Allergies Allergy/AdvReac Type Severity Reaction Status Date / Time Sulfa (Sulfonamide Allergy Rash Verified 11/03/23 06:33 Antibiotics) - Social History Does the pt smoke?: No Smoking Status: Never smoker Does the pt drink ETOH?: Yes Does the pt have substance abuse?: No - Immunizations Immunizations are current?: Yes - POLST Patient has POLST: No PD ED PE NORMAL - Vitals Vital signs reviewed: Yes - General General: Alert and oriented X 3, No acute distress - Abdomen Abdomen: Normal bowel sounds, Soft, Non tender - Rectal Rectal: Other (Modest stool in the vault without obvious impaction within fingers reach. Enema placed during exam.) Results - Vitals Vitals: Vital Signs - 24 hr 11/03/23 06:28 Temperature 36.5 C Heart Rate 62 Respiratory 18 Rate Blood Pressure 144/65 H O2 Saturation 96 Oxygen O2 Source Room air - Labs Labs: Laboratory Tests 11/03/23 11/03/23 11/03/23 06:45 06:45 07:44 WBC 5.9 RBC 4.37 L Hgb 13.1 L Hct 40.1 L MCV 91.8 MCH 30.0 MCHC 32.7 RDW 13.0 Plt Count 204 MPV 9.2 Neut # (Auto) 3.5 Lymph # (Auto) 1.6 [place] # (Auto) 0.5 Eos # (Auto) 0.2 Baso # (Auto) 0.1 Absolute Nucleated RBC 0.00 Nucleated RBC % 0.0 Sodium Cancelled 135 Potassium Cancelled 4.0 Chloride Cancelled 102 Carbon Dioxide Cancelled 29 Anion Gap Cancelled 4.0 L BUN Cancelled 19 Creatinine Cancelled 0.9 Estimated GFR (MDRD) Cancelled 82 L Glucose Cancelled 96 Calcium Cancelled 9.1 Total Bilirubin Cancelled 1.3 H AST Cancelled 13 ALT Cancelled 6 L Alkaline Phosphatase Cancelled 51 Total Protein Cancelled 6.3 L Albumin Cancelled 4.0 Globulin Cancelled 2.3 Albumin/Globulin Ratio Cancelled 1.7 Lipase Cancelled 19 PD Medical Decision Making - ED course Complexity details: reviewed results (Labs reviewed notable for mild normocytic anemia, similar to prior values. CMP showing mild chronic elevation of bilirubin, no evidence of renal dysfunction of significance nor electrolyte abnormality.) ED course: 78-year-old gentleman with symptoms concerning for fecal impaction. Fleets enema placed during exam. Repeated at approximately 7:55 AM with minimal output so far. He did have some release of his urine flow after that though. After the second enema he had a good bowel movement and felt much better. Departure - Departure Disposition: 01 Home, Self Care Clinical Impression: Fecal impaction Condition: Good Record reviewed to determine appropriate education?: Yes Instructions: ED Impaction Fecal Treated Comments: You were seen today for a fecal impaction. Drink plenty of fluids and follow-up with your primary care physician. Return for new or worsening symptoms. Forms: PCP List
[2023-11-03 08:06] LABS: ALBUMIN/GLOBULIN RATIO 1.7 (1.0-2.2); BILIRUBIN,TOTAL 1.3 mg/dL (0.2-1.0); CALCIUM 9.1 mg/dL (8.5-10.3); CREATININE 0.9 mg/dL (0.6-1.3); TOTAL PROTEIN 6.3 g/dL (6.4-8.9)
[2023-11-03 08:35] VITALS: BP 122/80; O2SAT 98
== END 2023-11-03 08:15 | disposition home or self-care (01) ==
LOC: ED 06:07
DX: K56.41 Fecal impaction (principal)
CPT/HCPCS: 36415; 80053; 83690; 85025; 99283

== ENCOUNTER 2024-11-30 09:41 | Inpatient (IN) ==
[2024-11-30 10:26] LABS: HCT - HEMATOCRIT 36.0 % (42.0-52.0); HGB - HEMOGLOBIN 11.3 g/dL (14.0-18.0); MEAN PLATELET VOLUME 10.3 fL (7.4-11.4); NRBC ABSOLUTE COUNT (AUTO) 0.00 x10^3/uL; NUCLEATED RED BLOOD CELLS AUTO 0.0 /100WBC; PLT - PLATELET COUNT 89 10^3/uL (130-450); RED CELL DISTRIBUTION WIDTH 13.2 % (12.0-15.0)
--- OUTSIDE RECORDS SUMMARY | 2024-11-30 10:48 | EXTERNAL MEDICAL SUMMARY RPT | Continuity of Care Document ---
Author Organization [facility] Address [address] [place] [id number] Phone Problems date description facility 2024-08-16 14:34 Constipation, unspecified [facility] 2024-08-16 14:34 Left lower quadrant pain [facility] 2024-09-08 06:37 Constipation, unspecified [facility] 2024-09-08 06:37 Left lower quadrant pain [facility] 2024-09-09 00:01 Constipation, unspecified [facility] 2024-09-09 00:01 Left lower quadrant pain [facility] 2024-11-05 09:51 Weakness [facility] Results/Labs test date facility value unit notes Result panel 1 GLUCOSE, WHOLE BLOOD 2024-11-30 09:47 [facility] 119 (missing) (missing) Result panel 2 NUCLEATED RED BLOOD CELLS AUTO 2024-11-30 10:02 [facility] 0.0 /100wbc (missing) BASOPHILS # (AUTO) 2024-11-30 10:02 [facility] 0.0 10 3/ul (missing) NRBC ABSOLUTE COUNT (AUTO) 2024-11-30 10:02 [facility] 0 .00 x10 3/ul (missing) EOSINOPHILS # (AUTO) 2024-11-30 10:02 [facility] 0.1 10 3/ul (missing) MONOCYTES # (AUTO) 2024-11-30 10:02 [facility] 0.5 10 3/ul (missing) LYMPHOCYTES # (AUTO) 2024-11-30 10:02 [facility] 1.2 10 3/ul (missing) MEAN PLATELET VOLUME 2024-11-30 10:02 [facility] 10.3 fl (missing) HGB - HEMOGLOBIN 2024-11-30 10:02 [facility] 11.3 g /dl (missing) RED CELL DISTRIBUTION WIDTH 2024-11-30 10:02 [facility] 13.2 % (missing) NEUTROPHILS # (AUTO) 2024-11-30 10:02 [facility] 2.9 10 3/ul (missing) MEAN CORPUSCULAR HEMOGLOBIN 2024-11-30 10:02 [facility] 29.7 pg (missing) RED BLOOD COUNT 2024-11-30 10:02 [facility] 3.80 10 6/ul (missing) MEAN CORPUSCULAR HGB CONC 2024-11-30 10:02 [facility] 31 .4 g/dl (missing) HCT - HEMATOCRIT 2024-11-30 10:02 [facility] 36.0 % (missing) WHITE BLOOD COUNT 2024-11-30 10:02 [facility] 4.8 x10 3/ul (missing) PLT - PLATELET COUNT 2024-11-30 10:02 [facility] 89 10 3/ul (missing) MEAN CORPUSCULAR VOLUME 2024-11-30 10:02 [facility] 94.7 fl (missing) Social History date description facility
[2024-11-30 11:08] LABS: ALT ALANINE AMINOTRANSFERASE 4 IU/L (10-60); AST ASPARTATE AMINOTRANSFERASE 13 IU/L (10-42); BUN - BLOOD UREA NITROGEN 17 mg/dL (6-20); CARBON DIOXIDE - CO2 31 mmol/L (21-32); CREATININE 0.8 mg/dL (0.6-1.3); GFR - MDRD 94 (>89)
[2024-11-30 11:10] LABS: TROPONIN I HIGH SENSITIVITY < 2.3 ng/L (2.3-19.7)
--- NOTE | 2024-11-30 11:13 | CT Report ---
PROCEDURE: CT Head WO INDICATIONS: GLF, syncope TECHNIQUE: CT of the head was performed, without intravenous contrast. Reformats: Coronal and sagittal. For radiation dose reduction, the following was used: automated exposure control, adjustment of mA and/or kV according to patient size. COMPARISON: 05/12/2023, 01/02/2023. Correlation is made with the accompanying imaging. FINDINGS: Image quality: Diagnostic. CSF spaces: Basal cisterns are patent. No extra-axial fluid collections. Ventricles are normal in size and shape. Brain: No midline shift. No intracranial mass effect or hemorrhage. Rivers- white matter interface is normal. Age-appropriate brain parenchymal volume loss and chronic small vessel ischemic change can be seen. Skull and face: Calvarium and visualized facial bones are intact, without suspicious lesions. Sinuses: Visualized sinuses and mastoids are clear. IMPRESSION: No intracranial hemorrhage is seen. No acute intracranial pathology. Reviewed by: Ke Sterling MD on 11/30/2024 10:10 AM HALI Approved by: Ke Sterling MD on 11/30/2024 10:10 AM NEMASTER Station ID: [id number]
--- NOTE | 2024-11-30 11:13 | XRAY Report ---
PROCEDURE: XR Chest 1V INDICATIONS: Cardiac workup/Infectious workup TECHNIQUE: One view of the chest was acquired. COMPARISON: None. FINDINGS: Surgical changes and devices: None. Lungs and pleura: No pleural effusions or pneumothorax. No consolidation. Mediastinum: Mediastinal contours appear normal. Heart size is normal. Bones and chest wall: No suspicious bony lesions. Overlying soft tissues appear unremarkable. IMPRESSION: No acute cardiopulmonary process. Reviewed by: Troy Mendoza MD on 11/30/2024 11:10 AM PDT Approved by: Troy Mendoza MD on 11/30/2024 11:10 AM PDT Station ID: [id number]
--- NOTE | 2024-11-30 11:14 | CT Report ---
PROCEDURE: CT Cervical Spine WO INDICATIONS: GLF, syncope, head trauma TECHNIQUE: Noncontrast images acquired from the skull base to the T4 level. Sagittal and coronal reformats were then constructed. For radiation dose reduction, the following was used: automated exposure control, adjustment of mA and/or kV according to patient size. COMPARISON: Correlation is made with the accompanying imaging. FINDINGS: Image quality: Excellent. Bones: No fractures or dislocations. Visualized superior ribs are intact. Moderate disc base narrowing can be seen at C3-C4, C4-C5, C5-C6, and C6-C7. Soft tissues: Prevertebral soft tissues are normal in thickness. No paravertebral hematomas. No apical pneumothoraces. Atherosclerotic calcification is seen. IMPRESSION: Negative for cervical spine fracture. Multiple levels of underlying cervical spine degenerative change can be seen. Reviewed by: eK Sterling MD on 11/30/2024 10:11 AM HALI Approved by: Ke Sterling MD on 11/30/2024 10:11 AM HALI Station ID: [id number]
[2024-11-30 11:47] LABS: B. PARAPERTUSSIS- RESP PCR PAN NOT DETECTED; B. PERTUSSIS- RESP PCR PANEL NOT DETECTED; C. PNEUMONIAE- RESP PCR PANEL NOT DETECTED; CORONAVIRUS 229E-RESP PCR NOT DETECTED; CORONAVIRUS HKU1-RESP PCR NOT DETECTED; CORONAVIRUS NL63-RESP PCR NOT DETECTED; CORONAVIRUS OC43-RESP PCR NOT DETECTED; HUMAN METAPNEUMOVIRUS NOT DETECTED; INFLUENZA A- RESP PCR PANEL NOT DETECTED; INFLUENZA B - RESP PCR PANEL NOT DETECTED; M. PNEUMONIAE- RESP PCR PANEL NOT DETECTED; PARAINFLUENZA VIRUS 1 NOT DETECTED; PARAINFLUENZA VIRUS 2 NOT DETECTED; PARAINFLUENZA VIRUS 4 NOT DETECTED; RHINOVIRUS/ENTEROVIRUS NOT DETECTED; RSV- RESP PCR PANEL NOT DETECTED; SARS-CoV-2 -RESP PCR PANEL NOT DETECTED
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
[2024-11-30 14:26] LABS: GLUCOSE, URINE (UA) NEGATIVE (NEGATIVE); KETONES,URINE (UA) NEGATIVE (NEGATIVE); OCCULT BLOOD,URINE NEGATIVE (NEGATIVE)
--- NOTE | 2024-11-30 15:18 | ED Physician Documentation ---
ED Addendum Addendum Addendum: Signout from Dr. Reilly at 3 PM shift change. Briefly: Has hx parkinsons Syncope today, no prodrome Continues with orthostasis despite IVF More lex than normal usually 50-60s today 40s. On metoprolol Plan to admit, no beds available currently. Spoke with MEGHANA Mai for admission at 4:23 PM. updated by phone and appreciative of care. Discharge Plan Discharge Patient Disposition: ED Place in Observation Condition: Stable Clinical Impression: Syncope, Bradycardia, Orthostatic hypotension Interventions: ED Admission Assessment Last Done: 11/30/24 17:43 Vitals documented within 30 minutes of discharge?: Yes
[2024-11-30] MEDS: DEXTROSE 5%-0.9% NACL 1,000 ML IV STA (16:00)
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
[2024-11-30] MEDS ORDERED: ONDANSETRON ODT 4 MG TABLET TL PRN (17:54)
[2024-11-30] MEDS ORDERED: SODIUM CHLORIDE FLUSH 0.9% 10 ML SYRINGE IVP PRN (17:54)
[2024-11-30] MEDS ORDERED: ONDANSETRON 4 MG/2 ML VIAL IVP PRN (17:54)
[2024-11-30] MEDS: SODIUM CHLORIDE 0.9% 1,000 ML IV STA (18:10)
[2024-11-30] MEDS: LACTATED RINGERS 1,000 ML IV SCH (18:48)
[2024-11-30] MEDS: CARBIDOPA/LEVODOPA 25 MG/100 MG TABLET PO ONE (19:30)
[2024-11-30] MEDS: SODIUM CHLORIDE FLUSH 0.9% 10 ML SYRINGE IVP SCH (23:45)
[2024-12-01] MEDS: ACETAMINOPHEN 325 MG TABLET PO PRN (04:04)
[2024-12-01] MEDS: TAMSULOSIN 0.4 MG CAPSULE PO SCH (08:25)
[2024-12-01] MEDS: ENOXAPARIN 40 MG/0.4 ML SYRINGE SUBQ SCH (08:25)
--- NOTE | 2024-12-01 11:47 | PHARMACY PROGRESS NOTE ---
Best Possible Medication History Admit Date and Time: 11/30/24 1702 Home Medications Medication Instructions Recorded Confirmed Type selegiline HCl 5 mg capsule 5 mg PO BID 06/06/1412/01 History carbidopa 25 mg-levodopa 100 mg 1.5 tab PO TID 3 12/01/24 History tablet metoprolol succinate 50 mg 25 mg PO BID 05/28/2212/01 History tablet,extended release 24 hr aspirin 81 mg tablet,delayed 81 mg PO DAILY #30 tabs 0 05/30/22 12/01/24 Rx release tamsulosin 0.4 mg capsule 0.4 mg PO DAILY #15 caps 12/01/24 Rx wheat dextrin 3 gram/3.8 gram oral 10 g PO DAILY #236 grams 03/30/23 12/01/24 Rx powder (Fiber Supplement(wheat dextrin)) Processed by: Pharmacy (Medication reconciliation completed by Ophthalmic NurseChristine) Medications reviewed in ED?: No Medication History completed: Yes Patient Interview: Completed Secondary Source(s): Written medication list [facility] Statement: As the person ultimately responsible for medication therapy, providers are able to order a medication from an existing home medication list in [facility] via the "Reconcile Routine" prior to Confirmation of that medication by program support clerk. Such practice is discouraged except when the physician, in their clinical judgment, deems that a medical need exists for a medication without regard to previous use.
--- NOTE | 2024-12-01 12:23 | Discharge Summary ---
"Discharge Summary Admit Date: 11/30/24 Discharge Date: 12/02/24 Discharging Provider: Dr. Chika Garcia Primary Care Provider: Kaila Vicente Code Status: Attempt Resuscitation Discharge Facility Name: Home DIAGNOSES Admission Diagnoses: Discharge Diagnoses with Status of Each Condition: Bradycardiapatient had a heart rate of between 30-40 on admission. He had some dizziness associated with this. His metoprolol was held for 24 hours, and his heart rate improved to the low 60s. He was advised to hold his metoprolol. If this were to recur, he will likely need a pacemaker placed. Echo was completed, read is pending. Orthostatic hypotensionlikely due to decreased p.o. intake. Received 2 days of IV hydration. Improved. Syncopeepisodes were described as more presyncope felt lightheaded and dizzy. Secondary to above, now resolved. Parkinson's diseasecontinue home Sinemet. Atrial fibrillationcontinue to hold metoprolol, indefinitely. Patient does not take anticoagulation, per him. HPI History of Present Illness: Patient is a 79-year-old male with a history of atrial fibrillation on metoprolol, Parkinson's disease who presents after lightheadedness and dizziness at home. Patient states that he was sitting on the couch, he got up and walked about 10 to 12 feet, when he suddenly felt very lightheaded. He then had an episode where everything went black, but he woke up before he fell. He did not hit his head, and he was able to catch himself. He denies any chest pain, palpitations, feelings of his heart racing. He states he has been on a stable dose of metoprolol for many years, ever since his atrial fibrillation was diagnosed. He denies any fevers, chills, shortness of breath. He does state that he has been drinking less water over the last few days. He has been eating the same amount. His , and his kids usually help with his ADLs including cooking and cleaning. In the ER, he was bradycardic, with a heart rate of 54. He was afebrile, saturating 100% on room air. His respiratory rate was 18. His blood pressure was 110/61. He received IV fluids. Head CT, cervical spine CT, chest x-ray were all negative for any acute process. He was admitted for syncope, as well as bradycardia. Past medical history includes Parkinson's, for which she takes carbidopalevodopa, atrial fibrillation for which she is on metoprolol. He states he has not been on any oral anticoagulation. He is allergic to sulfa antibiotics. He denies any tobacco use. He uses alcohol occasionally, and denies any other recreational drug use. He lives with his , and son who help with his ADLs. He normally walks around without any assistive devices. CONSULTS | PROCEDURES Procedures: Chest x-ray11/30no acute cardiopulmonary process Cervical spine CT11/30multiple levels of underlying cervical spine degenerative changes. Head CTno intracranial hemorrhage is seen. HOSPITAL COURSE Hospital Course: Patient is a 79-year-old male with a history of atrial fibrillation on metoprolol, Parkinson's disease presented with lightheadedness and dizziness at home. He was found to be bradycardic with heart rate as low as 30-40. He normally takes metoprolol 25 mg extended release twice a day. This was held on admission. His heart rate improved to the 60s to 70s. He was also positive for orthostatic hypotension, and received IV fluid rehydration with improvement of this. An echo was completed, but has not been read yet, remains pending. He needs close follow-up with his primary care provider, as well as his neurologist. During his stay here, despite being on his home tamsulosin, he was retaining urine. He retained over 1000 cc. After 2 straight catheterizations, decision was made to place Kamara catheter. He will need close follow-up with urology for managment of this. I spoke with his (on the phone) and himself about this. Overall, he was deemed suitable for discharge home with close follow up. He has an appointment with his PCP tomorrow morning at 10 AM. ALLERGIES Allergies Allergy/AdvReac Type Severity Reaction Status Date / Time Sulfa (Sulfonamide Allergy Rash Verified 11/30/24 10:40 Antibiotics) MEDICATIONS Ambulatory Orders Medication Instructions Recorded Confirmed selegiline HCl 5 mg capsule 5 mg PO BID 06/06/1412/01 carbidopa 25 mg-levodopa 100 mg 1.5 tab PO TID 3 12/01/24 tablet aspirin 81 mg tablet,delayed 81 mg PO DAILY #30 tabs 0 05/30/22 12/01/24 release tamsulosin 0.4 mg capsule 0.4 mg PO DAILY #15 caps 12/01/24 wheat dextrin 3 gram/3.8 gram oral 10 g PO DAILY #236 grams 03/30/23 12/01/24 powder (Fiber Supplement(wheat dextrin)) PHYSICAL EXAM AT DISCHARGE Vital Signs: Vital Signs x48h Temp Pulse Resp BP Pulse Ox 12/02/24 13:03 97.7 F 652 H 16 110/72 94 12/02/24 09:30 98.1 F 61 16 108/61 94 General Appearance: positive No acute distress and Alert; negative Anxious Eyes Bilateral: positive Normal inspection, PERRL and EOMI ENT: positive ENT inspection nml, Pharynx nml and No signs of dehydration Neck: positive Nml inspection, Thyroid nml and No JVD Respiratory: positive Chest non-tender, No respiratory distress and Breath sounds nml; negative Wheezes, Rales or Rhonchi Cardiovascular: positive No murmur, No gallop, Irregularly irregular and Bradycardia; negative Tachycardia or Systolic murmur Abdomen: positive Non-tender, No organomegaly and No distention; negative Guarding or Splenomegaly Back: positive Nml inspection; negative CVA tenderness (R) or CVA tenderness (L) Skin: positive Color nml, No rash, Warm and Dry Extremities: positive Non-tender, No pedal edema and Other (Cogwheel rigidity noted of upper extremities) Neurologic/Psychiatric: positive Oriented x3, Motor nml and Mood/affect nml LABS 12/02/24 05:10 12/02/24 05:10 FOLLOW UP Follow Up: Follow up PCP. Follow up urology. Follow up neurology. TIME SPENT Time Spent in Discharge (Minutes): 35 Discharge Plan Discharge Patient Disposition: Home, Self Care Condition: Stable Prescriptions: Continued selegiline HCl 5 MG capsule 5 mg PO BID carbidopa-levodopa 1 TAB tablet 1.5 tab PO TID Rx Instructions: can take 2 tablets at 8 PM aspirin 81 MG tablet,delayed release (DR/EC) 81 mg PO DAILY Qty: 30 0RF tamsulosin 0.4 MG capsule 0.4 mg PO DAILY Qty: 15 0RF Fiber Supplement(wheatdextrin) 236 GM powder 10 g PO DAILY Qty: 236 0RF Discontinued metoprolol succinate 50 MG tablet extended release 24 hr 25 mg PO BID Rx Instructions: 1/2 tablet am 1/2 tablet pm per his doctor Activity Restrictions: Activity as Tolerated Diet: Regular Health Concerns: You came in because you had a few episodes where you almost passed out; you were also dizzy. You were found to be very dehydrated. Your heart rate was also very slow. We held your metoprolol, which I would like you to continue to hold on discharge. After 24 hours of holding this, your heart rate has normalized. You are feeling better. We also gave you lots of IV fluids. You appear well- hydrated at this time. We also completed an ultrasound of your heart. The results are still pending, and I will likely call you with the final results. Finally, we had to place a Kamara catheter as you were holding onto urine. I have attached the number of the Urologist's office with who I'd like you to make an appointment with and follow up with. Please continue to follow-up closely in the outpatient setting with your primary care provider. We are glad you are feeling better, thank you for letting us take care of you. Print Language: Tajik Patient Instructions: Understanding Bradycardia Stand Alone Forms: PCP List Follow-up Care: Kaila Vicente MD [Primary Care Provider, Internal Medicine] Davon Hernández MD [Provider Admit Priv/Credential, Urology] Vitals documented within 30 minutes of discharge?: Yes"
--- NOTE | 2024-12-01 14:06 | PROVIDER PROGRESS NOTE ---
Subjective Subjective Subjective: This morning, patient is doing better. He denies any lightheadedness or dizziness. He did get up and walk around, and did not feel lightheaded with that. He does not recall when his last echocardiogram was. The last one we have here is was completed on 05/30 and showed EF of 60 to 65%. At that time, there was mild aortic valve sclerosis. Current Medications Current Medications Current Medications: Current Medications Generic Name Dose Route Start Last Admin Trade Name Freq PRN Reason Stop Dose Admin Acetaminophen 650 mg 11/30/24 17:54 12/01/24 04:04 Acetaminophen 325 Mg Tablet PO 650 mg Q4HR PRN Administration Pain 1 to 4, or Fever Lactated Ringer's 1,000 mls @ 100 mls/hr 11/30/24 18:00 12/01/24 04:07 Lr IV 100 mls/hr .Q10H HILDA Administration Ondansetron HCl 4 mg 11/30/24 17:54 Ondansetron Odt 4 Mg Tablet TL Q6HR PRN Nausea / Vomiting Ondansetron HCl 4 mg 11/30/24 17:54 Ondansetron 4 Mg/2 Ml Vial IVP Q6HR PRN Nausea / Vomiting Sodium Chloride 10 ml 11/30/24 17:54 Sodium Chloride Flush 0.9% 10 Ml Syringe IVP PRN PRN NEEDED PER PROVIDER ORDERS Sodium Chloride 10 ml 12/01/24 01:00 12/01/24 08:25 Sodium Chloride Flush 0.9% 10 Ml Syringe IVP 10 ml 0100,0900,1700 HILDA Administration Tamsulosin HCl 0.4 mg 12/01/24 09:00 12/01/24 08:25 Tamsulosin 0.4 Mg Capsule PO 0.4 mg DAILY HILDA Administration Objective Vital Signs/Intake & Output Reviewed Vital Signs: Yes Vital Signs: Vital Signs x48h Temp Pulse Resp BP Pulse Ox 12/01/24 09:00 98.1 F 62 16 139/71 H 98 Intake & Output: Intake & Output 11/28/24 11/29/24 11/30/24 12/01/24 23:59 23:59 23:59 23:59 Intake Total 2240 / 2240 1289 / 1289 Output Total 150 / 150 Balance 2240 / 2240 1139 / 1139 Weight (kg) 60.5 kg Objective General Appearance: positive No acute distress and Alert; negative Anxious Eyes Bilateral: positive Normal inspection, PERRL and EOMI ENT: positive ENT inspection nml, Pharynx nml and No signs of dehydration Neck: positive Nml inspection, Thyroid nml and No JVD Respiratory: positive Chest non-tender, No respiratory distress and Breath sounds nml; negative Wheezes, Rales or Rhonchi Cardiovascular: positive No murmur, No gallop, Irregularly irregular and Bradycardia; negative Tachycardia or Systolic murmur Abdomen: positive Non-tender, No organomegaly and No distention; negative Guarding or Splenomegaly Back: positive Nml inspection; negative CVA tenderness (R) or CVA tenderness (L) Skin: positive Color nml, No rash, Warm and Dry Extremities: positive Non-tender, No pedal edema and Other (Cogwheel rigidity noted of upper extremities) Neurologic/Psychiatric: positive Oriented x3, Motor nml and Mood/affect nml Lab Results 11/30/24 10:02 11/30/24 10:44 Other Labs: Lab Results x24hrs 11/30/24 Range/Units 13:15 Urine Color YELLOW Urine Clarity CLEAR (CLEAR) Urine pH 6.0 (5.0-7.5) PH Ur Specific [place] 1.020 (1.002-1.030) Urine Protein NEGATIVE (NEGATIVE) mg/dL Urine Glucose (UA) NEGATIVE (NEGATIVE) mg/dL Urine Ketones NEGATIVE (NEGATIVE) mg/dL Urine Occult Blood NEGATIVE (NEGATIVE) Urine Nitrite NEGATIVE (NEGATIVE) Urine Bilirubin NEGATIVE (NEGATIVE) Urine Urobilinogen 0.2 (NORMAL) (NORMAL) E.U./dL Ur Leukocyte Esterase NEGATIVE (NEGATIVE) Ur Microscopic Review NOT INDICATED Urine Culture Comments NOT INDICATED Assessment/Plan Problem List (1) Bradycardia: Impression: Patient has been on metoprolol. History of atrial fibrillation. Appropriate chronotropic response, normotensive. Hold metoprolol, continue gentle IV fluid rehydration. This morning, patient's heart rate is slightly improved in the low 60s. No echocardiogram services today, will complete tomorrow prior to discharge to evaluate for any valvular dysfunction that may have caused syncope. Patient is aware that if his blood pressure were to drop, or if his heart rate does not respond, he may need a pacemaker and transfer. (2) Orthostatic hypotension: Impression: Patient presented with positive orthostatic vital signshe went from a supine blood pressure of 143/71 to a standing pressure of 107/57. He received gentle IV fluid rehydration, and this morning, this was repeated and it is improved. He does have some mild symptoms of dizziness. (3) Syncope: Impression: Episodes are described more as presyncope where he felt lightheaded and dizzy. Likely due to above, continue to monitor. Qualifiers: Syncope type: unspecified Qualified Code(s): R55 - Syncope and collapse (4) Parkinson disease: Impression: Continue home Sinemet. Qualifiers: Dyskinesia presence: unspecified whether dyskinesia Fluctuating manifestations: without fluctuating manifestations Qualified Code(s): G20.A1 - Parkinson's disease without dyskinesia, without mention of fluctuations (5) Afib: Impression: Continue to hold metoprolol. Likely indefinitely. Qualifiers: Atrial fibrillation type: unspecified Qualified Code(s): I48.91 - Unspecified atrial fibrillation
[2024-12-02 05:46] LABS: HCT - HEMATOCRIT 37.7 % (42.0-52.0); HGB - HEMOGLOBIN 12.0 g/dL (14.0-18.0); MEAN PLATELET VOLUME 9.1 fL (7.4-11.4); PLT - PLATELET COUNT 186.0 10^3/uL (130-450); RED CELL DISTRIBUTION WIDTH 13.2 % (12.0-15.0)
[2024-12-02 06:00] LABS: BUN - BLOOD UREA NITROGEN 12.0 mg/dL (6-20); CARBON DIOXIDE - CO2 28.0 mmol/L (21-32); CREATININE 0.8 mg/dL (0.6-1.3); GFR - MDRD 94.0 (>89)
[2024-12-02] MEDS: ASPIRIN EC 81 MG TABLET PO SCH (09:11)
[2024-12-02 09:59] VITALS: O2SAT 94
[2024-12-02 14:04] VITALS: BP 110/72; TEMP 97.7
--- NOTE | 2024-12-02 17:05 | ECHO Report ---
Version: 1 Study ID: [id number] [id number] Adult Echocardiogram Report Name: DANDRE FUNES Study Date: 12/02/2024, 10: 22 AM BP: 186 / 92 mmHg Patient Location: [facility] [place]220^01 HR: 75 bpm : 1945 (MM/DD/YYYY) Gender: Male Height: 70 in Age: 79 Years Weight: 133.38 lb BSA: 1.76 m² Reason For Study: syncope History: syncope Interpretation Summary Global left ventricular systolic function is normal. The visual left ventricular ejection fraction is estimated at 60 to 65%. The right ventricle is normal size. No concerning cardiac valve disease is noted. Left Ventricle: The left ventricle is normal in size. Global left ventricular systolic function is normal. The visual left ventricular ejection fraction is estimated at 60 to 65%. Diastolic function could not be accurately assessed due to unobtainable data. Right Ventricle: The right ventricle is normal size. The right ventricular systolic function is normal. Aortic Valve: The aortic valve is trileaflet. The aortic valve is mildly thickened. Aortic valve sclerosis is present without stenosis. No aortic regurgitation is present. Mitral Valve: The mitral valve leaflets appear thickened, but with normal motion. No evidence of mitral stenosis is seen. There is trace mitral regurgitation. Tricuspid Valve: The tricuspid valve is normal in structure and function. Trace tricuspid regurgitation present. Pulmonic Valve: The pulmonic valve is normal in structure and function. Left Atrium: The left atrial size is normal. Right Atrium: Right atrial size is normal. Patient unable to sniff or follow respiratory commands. The inferior vena cava is mildly dilated with mildly decreased collapse with sniff (estimated right atrial pressure 10-15mmHg). Atrial Septum: The interatrial septum is not well seen. Interatrial shunt cannot be excluded. Aorta: The ascending aorta is not well seen. The sinuses of Valsalva are not well visualized. Pulmonary Artery: Pulmonary artery systolic pressure could not be estimated due to an insufficient tricuspid regurgitant jet. Pericardium/Pleural Space: There is no pericardial effusion. Left Ventricle IVSd: 0.91 cm LVIDd: 3.5 cm LVPWd: 0.94 cm LVIDs: 2.38 cm Right Ventricle TAPSE: 2.11 cm Aortic Valve LV V1 max: 137.8 cm/sec LV V1 max P.6 mmHg Ao max P.0 mmHg Ao V2 max: 150.3 cm/sec MMode/2D Measurements & Calculations BMI: 19.1 kilograms/m² BSA([facility]): 1.72 m² EF (est.): 45.7 % IVSd: 0.91 cm LVIDd: 3.5 cm LVIDs: 2.38 cm LVPWd: 0.94 cm TAPSE: 2.11 cm Doppler Measurements & Calculations Ao max P.0 mmHg Ao V2 max: 150.3 cm/sec LV V1 max: 137.8 cm/sec LV V1 max P.6 mmHg RAP systole: 15.0 mmHg Other Measurements & Calculations EDV(Teich): 49.7 ml EF(sp-el): 50.0 % EF(Teich): 60.1 % ESV(Teich): 19.8 ml FS: 31.2 % Procedure Notes: Indication: Evaluate cardiac and valve function. This study was focused secondary to limited cardiac windows. The underlying rhythm was sinus. CPT Codes: 85569/[id number]: Transthoracic Echo with Spectral and Color Doppler. MD Rachelle Kelly 12/02/2024, 5: 05 PM Ordering Physician: Chika Garcia Referring Physician: Juan Reilly Performed By: Drea Henderson RDCS
== END 2024-12-02 14:04 | disposition home or self-care (01) | DRG 310 ==
LOC: ED 09:41 → MS2 09:41
PROVIDERS: ADMIT Internal Medicine; ATTEND Internal Medicine

== ENCOUNTER 2025-01-12 12:22 | Observation (INO) ==
--- OUTSIDE RECORDS SUMMARY | 2025-01-12 12:31 | EXTERNAL MEDICAL SUMMARY RPT | Continuity of Care Document ---
Author Organization [facility] Address [address] [place] [id number] Phone Problems date description facility 2024-11-05 09:51 Weakness [facility] 2024-11-30 17:15 Bradycardia, unspecified [facility] 2024-11-30 17:15 Syncope and collapse [facility] 2024-11-30 17:16 Bradycardia, unspecified [facility] 2024-11-30 17:16 Syncope and collapse [facility] 2024-11-30 18:24 Bradycardia, unspecified [facility] 2024-11-30 18:24 Syncope and collapse [facility] 2024-12-01 12:23 Bradycardia, unspecified [facility] 2024-12-01 12:23 Syncope and collapse [facility] 2024-12-01 14:29 Parkinson's disease without dyskinesia, without mention of fluctuations [facility] 2024-12-01 14:29 Unspecified atrial fibrillation [facility] 2024-12-01 14:29 Orthostatic hypotension [facility] 2024-12-01 14:29 Bradycardia, unspecified [facility] 2024-12-01 14:29 Syncope and collapse [facility] 2024-12-02 12:14 Parkinson's disease without dyskinesia, without mention of fluctuations [facility] 2024-12-02 12:14 Unspecified atrial fibrillation [facility] 2024-12-02 12:14 Orthostatic hypotension [facility] 2024-12-02 12:14 Bradycardia, unspecified [facility] 2024-12-02 12:14 Syncope and collapse [facility] 2024-12-02 12:18 Parkinson's disease without dyskinesia, without mention of fluctuations [facility] 2024-12-02 12:18 Unspecified atrial fibrillation [facility] 2024-12-02 12:18 Orthostatic hypotension [facility] 2024-12-02 12:18 Bradycardia, unspecified [facility] 2024-12-02 12:18 Syncope and collapse [facility] 2024-12-02 13:35 Parkinson's disease without dyskinesia, without mention of fluctuations [facility] 2024-12-02 13:35 Unspecified atrial fibrillation [facility] 2024-12-02 13:35 Orthostatic hypotension [facility] 2024-12-02 13:35 Bradycardia, unspecified [facility] 2024-12-02 13:35 Syncope and collapse [facility] 2024-12-02 14:04 Parkinson's disease without dyskinesia, without mention of fluctuations [facility] 2024-12-02 14:04 Unspecified atrial fibrillation [facility] 2024-12-02 14:04 Orthostatic hypotension Counts Include [facility] 2024-12-02 14:04 Bradycardia, unspecified [facility] 2024-12-02 14:04 Syncope and collapse [facility] 2024-12-13 11:08 Syncope and collapse [facility] 2024-12-14 12:48 Encounter for fittin g and adjustment of urinary device [facility] 2024-12-17 09:52 Other mechanical com plication of indwelling urethral catheter, initial encounter [facility] 2024-12-17 11:17 Displacement of indw elling urethral catheter, initial encounter [facility] 2024-12-20 11:16 Constipation, unspecified [facility] 2024-12-21 10:07 Leakage of indwellin g urethral catheter, initial encounter [facility] 2024-12-22 21:29 Constipation, unspecified [facility] 2024-12-24 11:21 Constipation, unspecified [facility] 2024-12-24 11:21 Left lower quadrant pain [facility] 2024-12-24 11:21 Weakness [facility] 2024-12-30 11:25 Left lower quadrant pain [facility] 2024-12-30 11:26 Constipation, unspecified [facility] 2025-01-12 10:35 [facility]urodynia [facility] 2025-01-12 10:35 Unspecified intracra nial injury with loss of consciousness of unspecified duration, initial encounter [facility] Results/Labs test date facility value unit notes Result panel 1 GLUCOSE, WHOLE BLOOD 2024-11-30 09:47 [facility] 119 (missing) (missing) Result panel 2 NUCLEATED RED BLOOD CELLS AUTO 2024-11-30 10:02 [facility] 0.0 /100wbc (missing) BASOPHILS # (AUTO) 2024-11-30 10:02 [facility] 0.0 10 3/ul (missing) NRBC ABSOLUTE COUNT (AUTO) 2024-11-30 10:02 [facility] 0 .00 x10 3/ul (missing) EOSINOPHILS # (AUTO) 2024-11-30 10:02 [facility] 0.1 10 3/ul (missing) MONOCYTES # (AUTO) 2024-11-30 10:02 [facility] 0.5 10 3/ul (missing) LYMPHOCYTES # (AUTO) 2024-11-30 10:02 [facility] 1.2 10 3/ul (missing) MEAN PLATELET VOLUME 2024-11-30 10:02 [facility] 10.3 fl (missing) HGB - HEMOGLOBIN 2024-11-30 10:02 [facility] 11.3 g /dl (missing) RED CELL DISTRIBUTION WIDTH 2024-11-30 10:02 [facility] 13.2 % (missing) NEUTROPHILS # (AUTO) 2024-11-30 10:02 [facility] 2.9 10 3/ul (missing) MEAN CORPUSCULAR HEMOGLOBIN 2024-11-30 10:02 [facility] 29.7 pg (missing) RED BLOOD COUNT 2024-11-30 10:02 [facility] 3.80 10 6/ul (missing) MEAN CORPUSCULAR HGB CONC 2024-11-30 10:02 [facility] 31 .4 g/dl (missing) HCT - HEMATOCRIT 2024-11-30 10:02 [facility] 36.0 % (missing) WHITE BLOOD COUNT 2024-11-30 10:02 [facility] 4.8 x10 3/ul (missing) PLT - PLATELET COUNT 2024-11-30 10:02 [facility] 89 10 3/ul (missing) MEAN CORPUSCULAR VOLUME 2024-11-30 10:02 [facility] 94.7 fl (missing) Result panel 3 SARS-CoV-2 -RESP PCR PANEL 2024-11-30 10:21 [facility] NOT DETECTED (missing) A negative test result for this test indicates that SARS-CoV-2 RNA was not present in the specimen above the limit of detection. Testing performed on the getuppFire RP2.1 Panel, a multiplexed nucleic acid repiratory panel. Negative results do not preclude infection with SARS-CoV-2 virus and should not be the sole basis of a patient management decision. In some patients repeat testing at various time points may be necessary for virus detection. False-negative results may arise from improper sample collection, degradation of viral RNA during shipping or storage, the presence of PCR inhibitors, and/or mutation in the SARS-CoV-2 virus. INFLUENZA A- RESP PCR PANEL 2024-11-30 10:21 [facility] NOT DETECTED (missing) Influenza A including subtypes H1, H3, and H1-2009 not detected by the BioFire RP2.1 Panel, a multiplexed nucleic acid test intended for the simultaneous qualitative detection and differentiation of nucleic acids from multiple viral and bacterial respiratory organisms. B. PARAPERTUSSIS- RESP PCR LEW 2024-11-30 10:21 [facility] NOT DETECTED (missing) Negative results for this organism do not preclude infection with this organism and may require additional laboratory testing (e.g., bacterial and viral culture, immunofluorescence, and radiography) when evaluating a patient with possible respiratory tract infection. B. PERTUSSIS- RESP PCR PANEL 2024-11-30 10:21 [facility] NOT DETECTED (missing) Negative results for this organism do not preclude infection with this organism and may require additional laboratory testing (e.g., bacterial and viral culture, immunofluorescence, and radiography) when evaluating a patient with possible respiratory tract infection. C. PNEUMONIAE- RESP PCR PANEL 2024-11-30 10:21 [facility] NOT DETECTED (missing) Negative results for this organism do not preclude infection with this organism and may require additional laboratory testing (e.g., bacterial and viral culture, immunofluorescence, and radiography) when evaluating a patient with possible respiratory tract infection. M. PNEUMONIAE- RESP PCR PANEL 2024-11-30 10:21 [facility] NOT DETECTED (missing) Negative results for this organism do not preclude infection with this organism and may require additional laboratory testing (e.g., bacterial and viral culture, immunofluorescence, and radiography) when evaluating a patient with possible respiratory tract infection. CORONAVIRUS 229E-RESP PCR 2024-11-30 10:21 [facility] NOT DETECTED (missing) Negative results in the setting ofa respiratory illness may be due to infection with pathogens not detected by this test, or lower respiratory tract infection that may not be detected by nasopharyngeal specimen. CORONAVIRUS HKU1-RESP PCR 2024-11-30 10:21 [facility] NOT DETECTED (missing) Negative results in the setting ofa respiratory illness may be due to infection with pathogens not detected by this test, or lower respiratory tract infection that may not be detected by nasopharyngeal specimen. CORONAVIRUS [id number] PCR 2024-11-30 10:21 [facility] NOT DETECTED (missing) Negative results in the setting ofa respiratory illness may be due to infection with pathogens not detected by this test, or lower respiratory tract infection that may not be detected by nasopharyngeal specimen. CORONAVIRUS [id number] PCR 2024-11-30 10:21 [facility] NOT DETECTED (missing) Negative results in the setting ofa respiratory illness may be due to infection with pathogens not detected by this test, or lower respiratory tract infection that may not be detected by nasopharyngeal specimen. HUMAN METAPNEUMOVIRUS 2024-11-30 10:21 [facility] NOT DETECTED (missing) Negative results in the setting ofa respiratory illness may be due to infection with pathogens not detected by this test, or lower respiratory tract infection that may not be detected by nasopharyngeal specimen. INFLUENZA B - RESP PCR PANEL 2024-11-30 10:21 [facility] NOT DETECTED (missing) Negative results in the setting ofa respiratory illness may be due to infection with pathogens not detected by this test, or lower respiratory tract infection that may not be detected by nasopharyngeal specimen. PARAINFLUENZA VIRUS 1 2024-11-30 10:21 [facility] NOT DETECTED (missing) Negative results in the setting ofa respiratory illness may be due to infection with pathogens not detected by this test, or lower respiratory tract infection that may not be detected by nasopharyngeal specimen. PARAINFLUENZA VIRUS 2 2024-11-30 10:21 [facility] NOT DETECTED (missing) Negative results in the setting ofa respiratory illness may be due to infection with pathogens not detected by this test, or lower respiratory tract infection that may not be detected by nasopharyngeal specimen. PARAINFLUENZA VIRUS 3 2024-11-30 10:21 [facility] NOT DETECTED (missing) Negative results in the setting ofa respiratory illness may be due to infection with pathogens not detected by this test, or lower respiratory tract infection that may not be detected by nasopharyngeal specimen. PARAINFLUENZA VIRUS 4 2024-11-30 10:21 [facility] NOT DETECTED (missing) Negative results in the setting ofa respiratory illness may be due to infection with pathogens not detected by this test, or lower respiratory tract infection that may not be detected by nasopharyngeal specimen. RHINOVIRUS/ENTEROVI FAIZAN 2024-11-30 10:21 [facility] NOT DETECTED (missing) Negative results in the setting ofa respiratory illness may be due to infection with pathogens not detected by this test, or lower respiratory tract infection that may not be detected by nasopharyngeal specimen. RSV- RESP PCR PANEL 2024-11-30 10:21 [facility] NOT DETECTED (missing) Negative results in the setting ofa respiratory illness may be due to infection with pathogens not detected by this test, or lower respiratory tract infection that may not be detected by nasopharyngeal specimen. ADENOVIRUS - RESP PCR PANEL 2024-11-30 10:21 [facility] NOT DETECTED (missing) UNKNOWN Negative results in the setting ofa respiratory illness may be due to infection with pathogens not detected by this test, or lower respiratory tract infection that may not be detected by nasopharyngeal specimen. Result panel 4 TROPONIN I HIGH SENSITIVITY 2024-11-30 10:44 [facility] < 2.3 ng/l A HIGH SENSITIVITY TROPONIN result of >= 14.9 ng/L for females is considered POSITIVE. A HIGH SENSITIVITY TROPONIN result of >= 19.8 ng/L for males is considered POSITIVE. A HIGH SENSITIVITY TROPONIN result of >= 17.9 ng/L for unspecified is considered POSITIVE. ANION GAP 2024-11-30 10:44 [facility] 0.0 (missing) (missing) CREATININE 2024-11-30 10:44 [facility] 0.8 mg/dl As of September 2022 testing method has changed, this may include reference ranges. BILIRUBIN,TOTAL 2024-11-30 10:44 [facility] 0.9 mg/dl As of September 2022 testing method has changed, this may include reference ranges. GLOBULIN 2024-11-30 10:44 [facility] 1.7 g/dl (missing) CHLORIDE 2024-11-30 10:44 [facility] 107 mmol/l As of September 2022 testing method has changed, this may include reference ranges. AST ASPARTATE AMINOTRANSFERASE 2024-11-30 10:44 [facility] 13 iu/l As of September 2022 testing method has changed, this may include reference ranges. SODIUM 2024-11-30 10:44 [facility] 138 mmol/l Unknown BUN - BLOOD UREA NITROGEN 2024-11-30 10:44 [facility] 17 mg/dl As of September 2022 testing method has changed, this may include reference ranges. ALBUMIN/GLOBULIN RATIO 2024-11-30 10:44 [facility] 2.2 (missing) (missing) MAGNESIUM 2024-11-30 10:44 [employer] 2.2 mg/dl As of September 2022 testing method has changed, this may include reference ranges. ALBUMIN 2024-11-30 10:44 [facility] 3.7 g/dl As of September 2022 testing method has changed, this may include reference ranges. CARBON DIOXIDE - CO2 2024-11-30 10:44 [facility] 31 mmol/l As of September 2022 testing method has changed, this may include reference ranges. ALKALINE PHOSPHATASE 2024-11-30 10:44 [facility] 37 iu/l As of September 2022 testing method has changed, this may include reference ranges. ALT ALANINE AMINOTRANSFERASE 2024-11-30 10:44 [facility] 4 iu/l As of September 2022 testing method has changed, this may include reference ranges. POTASSIUM 2024-11-30 10:44 [facility] 4.5 mmol/l As of September 2022 testing method has changed, this may include reference ranges. TOTAL PROTEIN 2024-11-30 10:44 [facility] 5.4 g/dl As of September 2022 testing method has changed, this may include reference ranges. GLUCOSE 2024-11-30 10:44 [facility] 75 mg/dl As of September 2022 testing method has changed, this may include reference ranges. CALCIUM 2024-11-30 10:44 [facility] 8.7 mg/dl As of September 2022 testing method has changed, this may include reference ranges. GFR - MDRD 2024-11-30 10:44 [facility] 94 (missing) The IDMS-traceable MDRD Study Equation has been validated extensively in and populations between the ages of 18 and 70 with impaired kidney function (eGFR < 60 mL/min/1.73m2) and has shown good performance for patients with all common causes of kidney disease. Although this equation has not been validated for patients older than 70, an MDRD-derived eGFR may still be a useful tool for providers caring for patients older than 70. References: http://www.nkdep. nih.gov/lab-evalu ation/gfr/creatin ine-stand ardization, last updated May 2011. Result panel 5 UROBILINOGEN,URINE 2024-11-30 13:15 [facility] 0.2 (NORMAL) e.u./dl (missing) SPECIFIC GRAVITY,URINE 2024-11-30 13:15 [facility] 1.020 (missing) (missing) PH,URINE 2024-11-30 13:15 [facility] 6.0 ph (missing) CLARITY,URINE 2024-11-30 13:15 [facility] CLEAR (missing) (missing) LEUKOCYTE ESTERASE, URINE 2024-11-30 13:15 [facility] NEGATIVE (missing) (missing) NITRITE,URINE 2024-11-30 13:15 [facility] NEGATIVE (missing) (missing) OCCULT BLOOD,URINE 2024-11-30 13:15 [facility] NEGATIVE (missing) (missing) BILIRUBIN,URINE 2024-11-30 13:15 [facility] NEGATIVE (missing) Bilirubin can be influenced by color interference. Please correlate positive results with clinical presentation GLUCOSE, URINE (UA) 2024-11-30 13:15 [facility] NEGATIVE mg/dl (missing) KETONES,URINE (UA) 2024-11-30 13:15 [facility] NEGATIVE mg/dl (missing) PROTEIN,URINE 2024-11-30 13:15 [facility] NEGATIVE mg/dl (missing) UR CULTURE IF IND 2024-11-30 13:15 [facility] NOT INDICATED (missing) (missing) URINE MICROSCOPIC INDICATED? 2024-11-30 13:15 [facility] NOT INDICATED (missing) (missing) COLOR,URINE 2024-11-30 13:15 [facility] YELLOW (missing) URINE RANDOM Result panel 6 GLUCOSE, WHOLE BLOOD 2024-11-30 13:31 [facility] 114 (missing) (missing) Result panel 7 CREATININE 2024-12-02 05:10 [employer] 0.8 mg/dl As of September 2022 testing method has changed, this may include reference ranges. CHLORIDE 2024-12-02 05:10 [facility] 107 mmol/l As of September 2022 testing method has changed, this may include reference ranges. BUN - BLOOD UREA NITROGEN 2024-12-02 05:10 [facility] 12 mg/dl As of Sep testing method has changed, this may include reference ranges. HGB - HEMOGLOBIN 2024-12-02 05:10 [employer] 12.0 g /dl (missing) RED CELL DISTRIBUTION WIDTH 2024-12-02 05:10 [facility] 13.2 % (mi ssing) SODIUM 2024-12-02 05:10 [employer] 140 mmol/l (missing) PLT - PLATELET COUNT 2024-12-02 05:10 [facility] 186 10 3/ul (missing) MAGNESIUM 2024-12-02 05:10 [facility] 2.2 mg/dl As of September 2022 testing method has changed, this may include reference ranges. CARBON DIOXIDE - CO2 2024-12-02 05:10 [facility] 28 mmol/l As of September 2022 testing method has changed, this may include reference ranges. MEAN CORPUSCULAR HEMOGLOBIN 2024-12-02 05:10 [employer] [facility] 29.5 pg (missing) POTASSIUM 2024-12-02 05:10 [employer] 3.8 mmol/l As of September 2022 testing method has changed, this may include reference ranges. MEAN CORPUSCULAR HGB CONC 2024-12-02 05:10 [facility] 31.8 g/dl (missing) HCT - HEMATOCRIT 2024-12-02 05:10 [facility] 37.7 % (missing) RED BLOOD COUNT 2024-12-02 05:10 [facility] 4.07 10 6/ul (missing) ANION GAP 2024-12-02 05:10 [facility] 5.0 (missing ) (missing) WHITE BLOOD COUNT 2024-12-02 05:10 [facility] 8.7 x10 3/ul (missing) CALCIUM 2024-12-02 05:10 [facility] 8.9 mg/dl As of September 2022 testing method has changed, this may include reference ranges. GLUCOSE 2024-12-02 05:10 [facility] 83 mg/dl As of September 2022 testing method has changed, this may include reference ranges. MEAN PLATELET VOLUME 2024-12-02 05:10 [facility] 9.1 fl (missing) MEAN CORPUSCULAR VOLUME 2024-12-02 05:10 [facility] 92.6 fl (missing) GFR - MDRD 2024-12-02 05:10 [facility] 94 (missin g) The IDMS-traceable MDRD Study Equation has been validated extensively in and populations between the ages of 18 and 70 with impaired kidney function (eGFR < 60 mL/min/1.73m2) and has shown good performance for patients with all common causes of kidney disease. Although this equation has not been validated for patients older than 70, an MDRD-derived eGFR may still be a useful tool for providers caring for patients older than 70. References: http://www.nkdep.n ih.gov/lab-evaluat ion/gfr/creatinine -stand ardization, last updated May 2011. Result panel 8 NUCLEATED RED BLOOD CELLS AUTO 2024-12-22 17:38 [facility] 0.0 /100wbc (missing) NRBC ABSOLUTE COUNT (AUTO) 2024-12-22 17:38 [employer] 0.00 x10 3/ul (missing) BASOPHILS # (AUTO) 2024-12-22 17:38 [employer] [facility] 0.1 10 3/ul (missing) EOSINOPHILS # (AUTO) 2024-12-22 17:38 [facility] 0.2 10 3/ul (missing) MONOCYTES # (AUTO) 2024-12-22 17:38 [facility] 0.5 10 3/ul (missing) BILIRUBIN,TOTAL 2024-12-22 17:38 [facility] 0.8 mg/dl As of September 2022 testing method has changed, this may include reference ranges. CREATININE 2024-12-22 17:38 [facility] 0.9 mg/dl As of September 2022 testing method has changed, this may include reference ranges. LYMPHOCYTES # (AUTO) 2024-12-22 17:38 [facility] 1.6 10 3/ul (missing) GLOBULIN 2024-12-22 17:38 [facility] 1.9 g/dl (missing) CHLORIDE 2024-12-22 17:38 [facility] 103 mmol/l As of September 2022 testing method has changed, this may include reference ranges. GLUCOSE 2024-12-22 17:38 [facility] 105 mg/dl As of September 2022 testing method has changed, this may include reference ranges. HGB - HEMOGLOBIN 2024-12-22 17:38 [facility] 12.1 g/dl (missing) RED CELL DISTRIBUTION WIDTH 2024-12-22 17:38 [facility] 13.1 % (missing) SODIUM 2024-12-22 17:38 [facility] Include [facility] 136 mmol/l (missing) AST ASPARTATE AMINOTRANSFERASE 2024-12-22 17:38 [facility] 14 iu/l As of September 2022 testing method has changed, this may include reference ranges. BUN - BLOOD UREA NITROGEN 2024-12-22 17:38 [facility] 19 mg/dl As of September 2022 testing method has changed, this may include reference ranges. ALBUMIN/GLOBULIN RATIO 2024-12-22 17:38 [facility] 2.1 (missing) (missing) PLT - PLATELET COUNT 2024-12-22 17:38 [facility] 218 10 3/ul (missing) MEAN CORPUSCULAR HEMOGLOBIN 2024-12-22 17:38 [facility] 29.2 pg (missing) ANION GAP 2024-12-22 17:38 [facility] 3.0 (missing) (missing) NEUTROPHILS # (AUTO) 2024-12-22 17:38 [facility] 3.7 10 3/ul (missing) CARBON DIOXIDE - CO2 2024-12-22 17:38 [facility] 30 mmol/l As of September 2022 testing method has changed, this may include reference ranges. MEAN CORPUSCULAR HGB CONC 2024-12-22 17:38 [facility] 32.4 g/dl (missing) HCT - HEMATOCRIT 2024-12-22 17:38 [facility] 37.4 % (missing) ALT ALANINE AMINOTRANSFERASE 2024-12-22 17:38 [facility] 4 iu/l As of September 2022 testing method has changed, this may include reference ranges. ALBUMIN 2024-12-22 17:38 [facility] 4.0 g/dl As of September 2022 testing method has changed, this may include reference ranges. POTASSIUM 2024-12-22 17:38 [facility] 4.0 mmol/l As of September 2022 testing method has changed, this may include reference ranges. RED BLOOD COUNT 2024-12-22 17:38 [facility] 4.14 10 6/ul (missing) LIPASE 2024-12-22 17:38 [facility] 40 u/l As of September 2022 testing method has changed, this may include reference ranges. TOTAL PROTEIN 2024-12-22 17:38 [facility] 5.9 g/dl As of September 2022 testing method has changed, this may include reference ranges. ALKALINE PHOSPHATASE 2024-12-22 17:38 [facility] 55 iu/l As of September 2022 testing method has changed, this may include reference ranges. WHITE BLOOD COUNT 2024-12-22 17:38 [facility] 6.1 x10 3/ul (missing) MEAN PLATELET VOLUME 2024-12-22 17:38 [facility] 8.5 fl (missing) GFR - MDRD 2024-12-22 17:38 [facility] 82 (missing) The IDMS-traceable MDRD Study Equation has been validated extensively in and populations between the ages of 18 and 70 with impaired kidney function (eGFR < 60 mL/min/1.73m2) and has shown good performance for patients with all common causes of kidney disease. Although this equation has not been validated for patients older than 70, an MDRD-derived eGFR may still be a useful tool for providers caring for patients older than 70. References: http://www.nkdep. nih.gov/lab-evalu ation/gfr/creatin ine-stand ardization, last updated May 2011. CALCIUM 2024-12-22 17:38 [facility] 9.5 mg/dl As of September 2022 testing method has changed, this may include reference ranges. MEAN CORPUSCULAR VOLUME 2024-12-22 17:38 [facility] 90.3 fl (missing) Result panel 9 CEFEPIME 2024-12-22 18:41 [facility] <=0.12 (missing) (missing) ERTAPENEM 2024-12-22 18:41 [facility] <=0.12 (missing) (missing) LEVOFLOXACIN 2024-12-22 18:41 [facility] <=0.12 (missing) (missing) CEFTRIAXONE 2024-12-22 18:41 [facility] <=0.25 (missing) (missing) CIPROFLOXACIN 2024-12-22 18:41 [facility] <=0.25 (missing) (missing) IMIPENEM 2024-12-22 18:41 [facility] <=0.25 (missing) (missing) GENTAMICIN 2024-12-22 18:41 [facility] <=1 (missing) (missing) TOBRAMYCIN 2024-12-22 18:41 [facility] <=1 (missing) (missing) NITROFURANTOIN 2024-12-22 18:41 [facility] <=16 (missing) (missing) AMPICILLIN/SULBAC LOVE 2024-12-22 18:41 [facility] <=2 (missing) (missing) AMPICILLIN 2024-12-22 18:41 [facility] <=2 (missing) This organism is NEGATIVE for Extended Spectrum Beta Lactamase TRIMETHOPRIM/SULF AMETHOXAZOLE 2024-12-22 18:41 [facility] <=20 (missing) (missing) CEFAZOLIN 2024-12-22 18:41 [facility] <=4 (missing) (missing) UROBILINOGEN,URIN E 2024-12-22 18:41 [facility] 0.2 (NORMAL) e.u./dl (missing) SPECIFIC GRAVITY,URINE 2024-12-22 18:41 [facility] 1.015 (missing) (missing) CUL, URINE 2024-12-22 18:41 [facility] 100>100,000 CFU/mL (missing) (missing) WBC,URINE 2024-12-22 18:41 [facility] 50 /hpf (missing) CASTS, URINE 2024-12-22 18:41 [facility] 6-10 Fine Granular /lpf (missing) RBC,URINE 2024-12-22 18:41 [facility] 6-10 /hpf (missing) PH,URINE 2024-12-22 18: [facility] 7.0 ph (missing) CLARITY,URINE 2024-12-22 18:41 [facility] CLOUDY (missing) (missing) O:ESCCOL 2024-12-22 18:41 [facility] ESCCOLESCHERICHIA COLIESCHERICHIA COLI (missing) (missing) SQUAMOUS EPITHELIAL CELL,UR 2024-12-22 18:41 [facility] FEW Squamous (missing) (missing) AMORPHOUS SEDIMENT,UR 2024-12-22 18:41 [facility] Few /lpf (missing) CUL, URINE 2024-12-22 18:41 [facility] GNRGRAM NEGATIVE SEAN TO BE FURTHER IDENTIFIED (missing) (missing) CUL, URINE 2024-12-22 18:41 [facility] IDMIC.1ORG 1 ID/ROD COM* (missing) (missing) CUL, URINE 2024-12-22 18:41 [facility] IDMICID/ROD COM* (missing) (missing) UR CULTURE IF IND 2024-12-22 18:41 [facility] INDICATED (missing) (missing) URINE MICROSCOPIC INDICATED? 2024-12-22 18:41 [facility] INDICATED (missing) (missing) LEUKOCYTE ESTERASE, URINE 2024-12-22 18:41 [facility] MODERATE (missing) (missing) BACTERIA,URINE 2024-12-22 18:41 [facility] Many /hpf (missing) OCCULT BLOOD,URINE 2024-12-22 18:41 [facility] NEGATIVE (missing) (missing) BILIRUBIN,URINE 2024-12-22 18:41 [facility] NEGATIVE (missing) Bilirubin can be influenced by color interference. Please correlate positive results with clinical presentation GLUCOSE, URINE (UA) 2024-12-22 18:41 [facility] NEGATIVE mg/dl (missing) KETONES,URINE (UA) 2024-12-22 18:41 [facility] NEGATIVE mg/dl (missing) PROTEIN,URINE 2024-12-22 18:41 [facility] NEGATIVE mg/dl (missing) CUL, URINE 2024-12-22 18:41 [facility] ORG.1PRELIM ORG ID* (missing) (missing) NITRITE,URINE 2024-12-22 18:41 [facility] POSITIVE (missing) (missing) WBC CLUMPS,URINE 2024-12-22 18:41 [facility] PRESENT (missing) (missing) CUL, URINE 2024-12-22 18:41 [facility] SENSISENSITIVITIES TO FOLLOW (missing) (missing) CUL, URINE 2024-12-22 18:41 [facility] UCC.1ORG 1 CC* (missing) (missing) CUL, URINE 2024-12-22 18:41 [facility] UCC.6COLONY COUNT (missing) (missing) COLOR,URINE 2024-12-22 18:41 [facility] YELLOW (missing) URINE CATHETERIZED CUL, URINE 2024-12-22 18:41 [facility] YIDENTIFICATION AND SENSITIVITIES TO FOLLOW (missing) (missing) Result panel 10 LACTIC ACID, VENOUS 2024-12-22 18:44 [facility] 0.8 mmol/l N As of 2022 testing method has changed, this may include reference ranges. CULTURE, BLOOD #1 2024-12-22 18:44 [facility] NG1DNO GROWTH AFTER 1 DAY (missing) (missing) CULTURE, BLOOD #2 2024-12-22 18:44 [facility] NG1DNO GROWTH AFTER 1 DAY (missing) (missing) CULTURE, BLOOD #1 2024-12-22 18:44 [facility] NG2DNO GROWTH AFTER 2 DAYS (missing) (missing) CULTURE, BLOOD #2 2024-12-22 18:44 [facility] NG2DNO GROWTH AFTER 2 DAYS (missing) (missing) CULTURE, BLOOD #1 2024-12-22 18:44 [facility] NG5DNO GROWTH AFTER 5 DAYS (missing) (missing) CULTURE, BLOOD #2 2024-12-22 18:44 [facility] NG5DNO GROWTH AFTER 5 DAYS (missing) (missing) Result panel 11 PROCALCITONIN 2024-12-22 18:50 [facility] Include [facility] < 0.05 ng/ml PCT Concentration (n g/mL) Children >72hrs old and Adults Interpretation <0.5 Low risk of severe sepsis and/or septic shock >2.0 High risk of severe sepsis and/or septic shock Concentrations under 0.5 ng/mL do not exclude local infections or systemic infections in their initial stages (e.g. under six hours from onset of illness). PCT concentrations between 0.5 and 2.0 ng/mL should be interpreted with consideration of the patient's history. In this range, it is recommended to retest PCT within 6 to 24hours. Social History date description facility
[2025-01-12] MEDS: MORPHINE 10 MG/ML VIAL IM STA (12:51)
[2025-01-12 12:53] LABS: HCT - HEMATOCRIT 37.6 % (42.0-52.0); HGB - HEMOGLOBIN 11.8 g/dL (14.0-18.0); MEAN PLATELET VOLUME 8.4 fL (7.4-11.4); NRBC ABSOLUTE COUNT (AUTO) 0.00 x10^3/uL; NUCLEATED RED BLOOD CELLS AUTO 0.0 /100WBC; PLT - PLATELET COUNT 282 10^3/uL (130-450); RED CELL DISTRIBUTION WIDTH 13.4 % (12.0-15.0)
[2025-01-12 13:12] LABS: ALT ALANINE AMINOTRANSFERASE 4.0 IU/L (10-60); AST ASPARTATE AMINOTRANSFERASE 12.0 IU/L (10-42); BUN - BLOOD UREA NITROGEN 17.0 mg/dL (6-20); CARBON DIOXIDE - CO2 24.0 mmol/L (21-32); CREATININE 0.9 mg/dL (0.6-1.3); GFR - MDRD 82.0 (>89)
[2025-01-12 13:14] LABS: TROPONIN I HIGH SENSITIVITY 4.2 ng/L (2.3-19.7)
--- NOTE | 2025-01-12 13:19 | ED Physician Documentation ---
History of Present Illness Stated complaint Stated Complaint: CP Chief complaint Chief Complaint: Cardiac History obtained from History obtained from: Patient and EMS Additonal information Additional information: Patient is a 79-year-old male, history of atrial fibrillation presents with chest pain today. Patient states that he took a nap today and when he woke up he noticed that he had sharp left-sided chest pain. Lasted for a couple of minutes. This occurred about 930 this morninng. He states the pain has not recurred. It resolved when he sat up. No fevers or chills. No cough or congestion. No abdominal pain, nausea, vomiting. He states it feels like there was something bruised on his chest like maybe he he was sleeping on something on the couch. Review of Systems Constitutional Denies: Fever or Chills Respiratory Denies: Cough Gastrointestinal Denies: Nausea or Vomiting Meds/Allgy Home Medications Ambulatory Orders Medication Instructions Recorded Confirmed selegiline HCl 5 mg capsule 5 mg PO BID 06/06/1412/10 carbidopa 25 mg-levodopa 100 mg 1.5 tab PO TID 3 12/10/24 tablet aspirin 81 mg tablet,delayed 81 mg PO DAILY #30 tabs 0 05/30/22 12/10/24 release tamsulosin 0.4 mg capsule 0.4 mg PO DAILY #15 caps 12/10/24 wheat dextrin 3 gram/3.8 gram oral 10 g PO DAILY #236 grams 03/30/23 12/10/24 powder (Fiber Supplement(wheat dextrin)) polyethylene glycol 3350 17 17 g PO DAILY #119 grams 1 gram/dose oral powder (Miralax) Allergies Allergies Allergy/AdvReac Type Severity Reaction Status Date / Time Sulfa (Sulfonamide Allergy Rash Verified 01/12/25 12:26 Antibiotics) [facility] Active Problems All Active Problems (Updated 01/12/25 @ 18:23 by Tu Rollins MD) Elevated troponin level (Acute) Atrial fibrillation with RVR (Chronic) Elevated troponin (Acute) Contusion (Acute) Laceration (Acute) Injury of head and neck (Acute) Weakness (Acute) Constipation (Chronic) Malfunction of Kamara catheter (Acute) Displacement of Kamara catheter (Acute) Encounter for Kamara catheter replacement (Acute) Acute UTI (Acute) Medical History Medical History (Updated 01/12/25 @ 18:23 by Tu Rollins MD) History of skin cancer Parkinson disease Afib Hypertension Surgical History Surgical History History of melanoma excision Hx of tonsillectomy Social History Social History (Updated 11/30/24 @ 10:43 by Corinna Ryder RN) Smoking Status: Never smoker Second hand tobacco smoke exposure: No Do you dip or chew tobacco?: No Do you vape?: No Patient requests smoking cessation consult: No Initiate information on smoking cessation: No Level: Independent Do you feel safe in your home environment?: Yes History of physical, verbal, emotional, or financial abuse?: No Frequency: Occasional Substance Use: other Substance Use Details: Aspirin Are you sexually active?: No POLST Patient has POLST: No Exam Exam Vital Signs: Vital Signs x48h Temp Pulse Resp BP Pulse Ox 01/12/25 15:50 64 26 H 108/72 98 01/12/25 15:35 64 20 111/70 98 01/12/25 15:20 115 H 13 113/72 97 01/12/25 15:05 133 H 17 115/83 97 01/12/25 15:00 86 18 107/75 97 01/12/25 14:55 150 H 18 118/96 H 96 01/12/25 13:50 140 H 18 112/86 96 01/12/25 12:26 36.7 C 87 18 90/72 99 Constitutional no apparent distress Thin male HENMT normocephalic and head/scalp atraumatic moist mucous membranes Eyes PERRL Neck/C-Spine visual inspection normal Chest inspection of chest normal Respiratory breath sounds equal bilaterally, normal respiratory effort and clear to auscultation bilaterally Cardiovascular normal heart rate noted and regular rhythm noted Gastrointestinal abdomen normal to inspection, abdomen soft to palpation, nontender to palpation and nondistended Genitourinary no CVA tenderness Extremities no edema Neurology speech normal Psychiatry mental status grossly normal and oriented x3 Skin skin color normal Results Vitals Vitals: Vital Signs - 24 hr 01/12/25 12:26 01/12/25 13:50 01/12/25 13:52 Temperature 36.7 C Temperature Source Temporal Artery Scan Pulse Rate 87 140 H Respiratory Rate 18 18 Blood Pressure 90/72 112/86 O2 Saturation 99 96 O2 Source Room air Room air Pain Intensity 8 0 0 01/12/25 14:55 01/12/25 15:00 01/12/25 15:05 Temperature Temperature Source Pulse Rate 150 H 86 133 H Respiratory Rate 18 18 17 Blood Pressure 118/96 H 107/75 115/83 O2 Saturation 96 97 97 O2 Source Room air Room air Room air Pain Intensity 0 01/12/25 15:20 01/12/25 15:35 01/12/25 15:50 Temperature Temperature Source Pulse Rate 115 H 64 64 Respiratory Rate 13 20 26 H Blood Pressure 113/72 111/70 108/72 O2 Saturation 97 98 98 O2 Source Room air Room air Room air Pain Intensity Oxygen O2 Source Room air EKG (time done) 1236: EKG releavant findings:: EKG personally interpreted by author of this note. Relevant findings are: Rate: Other (131 bpm. Atrial fibrillation with rapid ventricular response. Q waves in V1 and V2. No ST elevation consistent with STEMI. Narrow QRS. Normal axis) Labs Labs: Laboratory Tests 01/12/25 01/12/25 01/12/25 12:49 15:45 17:28 WBC 10.6 RBC 4.12 L Hgb 11.8 L Hct 37.6 L MCV 91.3 MCH 28.6 MCHC 31.4 L RDW 13.4 Plt Count 282 MPV 8.4 Neut # (Auto) 7.0 H Lymph # (Auto) 2.6 Bond # (Auto) 0.7 Eos # (Auto) 0.2 Baso # (Auto) 0.1 Absolute Nucleated RBC 0.00 Nucleated RBC % 0.0 Sodium 137 Potassium 3.5 Chloride 104 Carbon Dioxide 24 Anion Gap 9.0 BUN 17 Creatinine 0.9 Estimated GFR (MDRD) 82 L Glucose 105 H Calcium 9.0 Total Bilirubin 0.8 AST 12 ALT 4 L Alkaline Phosphatase 56 Troponin I High Sens 4.2 31.0 H* 38.5 H* Total Protein 6.0 L Albumin 3.7 Globulin 2.3 Albumin/Globulin Ratio 1.6 Lipase 24 Rads (name of study) cxr: Relevant Findings:: Final report received PD Medical Decision Making ED course Complexity details: reviewed results, re-evaluated patient, considered differential, d/w patient and d/w crop consultant ED course: 79-year-old male with atypical chest pain earlier today. History of dementia and Parkinson's. His initial high send troponin was negative at 4, his second was at 31 and third at 38. He remained asymptomatic in the emergency department and spontaneously converted from his atrial fibrillation with rapid ventricular response to sinus rhythm at about 1540. Suspect that the mild high-sensitivity troponin elevation is secondary to A-fib RVR rather than true acute coronary syndrome. Discussed the case with the hospitalist for observation for serial troponins. They request that I speak to cardiology first. Patient does not have a package handler. At the time of signout, we are awaiting callback from cardiology. I did discuss with the patient's and she states that he does not have any cardiac history other than the intermittent atrial fibrillation, has never seen a package handler. Patient is signed out to Dr. Starks, I suspect that the patient will be able to be observed here overnight for serial troponins. Discharge Plan Discharge Patient Disposition: ED Place in Observation Condition: Stable Clinical Impression: Atrial fibrillation with RVR, Elevated troponin level
[2025-01-12] MEDS: SODIUM CHLORIDE 0.9% 1,000 ML IV STA (13:57)
--- NOTE | 2025-01-12 14:37 | XRAY Report ---
PROCEDURE: XR Chest 1V INDICATIONS: Chest Pain TECHNIQUE: One view of the chest was acquired. COMPARISON: Chest CT [address] and radiograph 11/30/2024 FINDINGS: Surgical changes and devices: None. Lungs and pleura: No pleural effusions or pneumothorax. Lungs are hyperexpanded. No consolidation. Mediastinum: Mediastinal contours appear normal. Heart size is normal. Bones and chest wall: No acute bony abnormality is seen radiographically. IMPRESSION: No acute cardiopulmonary process. Reviewed by: Dioni Metzger MD on 01/12/2025 2:33 PM PST Approved by: Dioni Metzger MD on 01/12/2025 2:33 PM PST Station ID: [id number]
[2025-01-12] MEDS: METOPROLOL 5 MG/5 ML VIAL IVP STA (14:53)
--- NOTE | 2025-01-12 19:28 | ED Physician Documentation ---
ED Addendum Addendum Addendum: [facility] re: very slight elevation in trop with stable trend. She states this is likely very mild demand ischemia 2/2 afib RVR. she recommends serial troponins and does not recommend intervention or transfer. Disposition admit to observation Condition stable Impression 1. afib RVR 2. elevated troponin Discharge Plan Discharge Patient Disposition: ED Place in Observation Condition: Stable Clinical Impression: Atrial fibrillation with RVR, Elevated troponin level
[2025-01-12] MEDS ORDERED: ONDANSETRON 4 MG/2 ML VIAL IVP PRN (19:58)
[2025-01-12] MEDS ORDERED: ACETAMINOPHEN 325 MG TABLET PO PRN (19:58)
[2025-01-12] MEDS ORDERED: SODIUM CHLORIDE FLUSH 0.9% 10 ML SYRINGE IVP PRN (19:58)
[2025-01-12] MEDS ORDERED: ONDANSETRON ODT 4 MG TABLET TL PRN (19:58)
--- NOTE | 2025-01-12 20:30 | HISTORY & PHYSICAL EXAMINATION ---
Chief Complaint Chief Complaint Chief Complaint: Chest pain History of Present Illness Admitted From Admitted From:: Home with History Obtained From History obtained from: Patient interview History of Present Illness HPI Comment/Other: 79-year-old male with history of atrial fibrillation, Parkinson's disease who presented with chest pain. He had a brief stay here in November for bradycardia. This resolved with discontinuation of his metoprolol. He is not anticoagulated due to fall risk from his Parkinson's disease. He presents to the ER with an episode of chest pain. He describes this as sharp, left-sided pain that lasted for a couple minutes. This pain has not recurred since about 930 this morning. Denies fever, chills, dyspnea, bowel/bladder abnormality. In the ER, he was noted to be in atrial fibrillation with RVR. He was given a dose of metoprolol and IV fluids, and his rhythm converted to sinus rhythm at 1540 today. His initial troponin was negative, but his troponin collected around the time of his rhythm conversion was 31. Another troponin was drawn at 1728 which was 38.5. Denies any continuing chest pain, but nonetheless his troponins are elevating. Cardiology was contacted by ER provider, who recommended further observation here. Hospitalist was contacted for observation for elevating troponins to rule out IA Meds/Allgy Home Medications Ambulatory Orders Medication Instructions Recorded Confirmed selegiline HCl 5 mg capsule 5 mg PO BID 06/06/1412/10 carbidopa 25 mg-levodopa 100 mg 1.5 tab PO TID 3 12/10/24 tablet aspirin 81 mg tablet,delayed 81 mg PO DAILY #30 tabs 0 05/30/22 12/10/24 release tamsulosin 0.4 mg capsule 0.4 mg PO DAILY #15 caps 12/10/24 wheat dextrin 3 gram/3.8 gram oral 10 g PO DAILY #236 grams 03/30/23 12/10/24 powder (Fiber Supplement(wheat dextrin)) polyethylene glycol 3350 17 17 g PO DAILY #119 grams 1 gram/dose oral powder (Miralax) Allergies Allergies Allergy/AdvReac Type Severity Reaction Status Date / Time Sulfa (Sulfonamide Allergy Rash Verified 01/12/25 12:26 Antibiotics) PF[facility] Active Problems All Active Problems (Updated 01/12/25 @ 18:23 by Tu Rollins MD) Elevated troponin level (Acute) Atrial fibrillation with RVR (Chronic) Elevated troponin (Acute) Contusion (Acute) Laceration (Acute) Injury of head and neck (Acute) Weakness (Acute) Constipation (Chronic) Malfunction of Kamara catheter (Acute) Displacement of Kamara catheter (Acute) Encounter for Kamara catheter replacement (Acute) Acute UTI (Acute) Medical History Medical History (Updated 01/12/25 @ 18:23 by Tu Rollins MD) History of skin cancer Parkinson disease Afib Hypertension Surgical History Surgical History History of melanoma excision Hx of tonsillectomy Social History Social History (Updated 11/30/24 @ 10:43 by Corinna Ryder RN) Smoking Status: Never smoker Second hand tobacco smoke exposure: No Do you dip or chew tobacco?: No Do you vape?: No Patient requests smoking cessation consult: No Initiate information on smoking cessation: No Level: Independent Do you feel safe in your home environment?: Yes History of physical, verbal, emotional, or financial abuse?: No Frequency: Occasional Substance Use: other Substance Use Details: Aspirin Are you sexually active?: No POLST Patient has POLST: No Review of Systems Status of ROS: 10 or more systems reviewed and unremarkable except as noted in history and below Exam Exam Vital Signs: Vital Signs x48h Temp Pulse Pulse Resp BP BP Pulse Ox 01/12/25 20:08 98.4 F 66 14 150/93 H 99 01/12/25 19:06 64 18 115/68 96 01/12/25 18:05 65 18 116/69 95 01/12/25 17:00 63 19 108/65 97 01/12/25 15:50 64 26 H 108/72 98 01/12/25 15:35 64 20 111/70 98 01/12/25 15:20 115 H 13 113/72 97 01/12/25 15:05 133 H 17 115/83 97 01/12/25 15:00 86 18 107/75 97 01/12/25 14:55 150 H 18 118/96 H 96 01/12/25 13:50 140 H 18 112/86 96 Constitutional normal general appearance and no apparent distress HENMT normocephalic Eyes PERRL Neck/C-Spine visual inspection normal Chest inspection of chest normal Respiratory breath sounds equal bilaterally and normal respiratory effort Cardiovascular normal heart rate noted and regular rhythm noted Gastrointestinal abdomen normal to inspection Extremities normal to inspection Neurology GCS 15 Speech tangential at times Psychiatry oriented x3 Skin skin color normal Old healing lac on back of head Conclusion/Plan Problem List (1) Elevated troponin level: Plan: Initial troponin negative, but it has risen to 38.5 Trend troponin every 3 hours Continue home dose aspirin Cardiology did not recommend heparin drip Likely type II non-STEMI from A-fib RVR (2) Atrial fibrillation with RVR: Plan: Resolved in the ED after 1 dose of metoprolol and IV fluids Telemetry He has history of atrial fibrillation, and had echocardiogram in November Consider restarting metoprolol at home (3) Parkinson disease: Plan: Continue home dose carbidopa levodopa Qualifiers: Dyskinesia presence: unspecified whether dyskinesia Fluctuating manifestations: without fluctuating manifestations Qualified Code(s): G20.A1 - Parkinson's disease without dyskinesia, without mention of fluctuations Plan Place in observation Full code His is his surrogate decision maker/DPOA Lab Results Lab results reviewed: Yes 01/12/25 12:49 01/12/25 12:49 Core Measures Anticipated LOS I expect patient to be DC'd or transferred within 96 hours.: Yes DVT/VTE - Prophylaxis VTE/DVT Prophylaxis med ordered at admit?: Yes
[2025-01-12] MEDS: CARBIDOPA/LEVODOPA 25 MG/100 MG TABLET PO SCH (22:39)
[2025-01-13] MEDS: SODIUM CHLORIDE FLUSH 0.9% 10 ML SYRINGE IVP SCH (01:30)
[2025-01-13] MEDS: CARBIDOPA/LEVODOPA 25 MG/100 MG TABLET PO SCH (07:55)
[2025-01-13 09:19] LABS: OCCULT BLOOD,URINE MODERATE (NEGATIVE)
[2025-01-13 09:20] LABS: GLUCOSE, URINE (UA) NEGATIVE (NEGATIVE); KETONES,URINE (UA) TRACE mg/dL (NEGATIVE)
[2025-01-13 09:31] LABS: WBC CLUMPS,URINE PRESENT
[2025-01-13 09:32] LABS: SQUAMOUS EPITHELIAL CELL,UR RARE Squamous (<= Few)
[2025-01-13] MEDS: ASPIRIN EC 81 MG TABLET PO SCH (09:35)
[2025-01-13] MEDS: ENOXAPARIN 40 MG/0.4 ML SYRINGE SUBQ SCH (09:35)
[2025-01-13] MEDS: TAMSULOSIN 0.4 MG CAPSULE PO SCH (09:35)
--- NOTE | 2025-01-13 11:27 | Discharge Summary ---
Discharge Summary Admit Date: 01/12/25 Discharge Date: 01/13/25 Discharging Provider: Marek Edwards Primary Care Provider: Jules Code Status: Attempt Resuscitation DIAGNOSES Discharge Diagnoses with Status of Each Condition: Elevated troponin leveltrended to peak and back down Atrial fibrillation with RVRdischarging on carvedilol History of Parkinson's diseasechronic HPI History of Present Illness: 79-year-old male with history of atrial fibrillation, Parkinson's disease who presented with chest pain. He had a brief stay here in November for bradycardia. This resolved with discontinuation of his metoprolol. He is not anticoagulated due to fall risk from his Parkinson's disease. He presents to the ER with an episode of chest pain. He describes this as sharp, left-sided pain that lasted for a couple minutes. This pain has not recurred since about 930 this morning. Denies fever, chills, dyspnea, bowel/bladder abnormality. In the ER, he was noted to be in atrial fibrillation with RVR. He was given a dose of metoprolol and IV fluids, and his rhythm converted to sinus rhythm at 1540 today. His initial troponin was negative, but his troponin collected around the time of his rhythm conversion was 31. Another troponin was drawn at 1728 which was 38.5. Denies any continuing chest pain, but nonetheless his troponins are elevating. Cardiology was contacted by ER provider, who recommended further observation here. Hospitalist was contacted for observation for elevating troponins to rule out [facility] Hospital Course: Patient was observed overnight on telemetry. His troponin trended up to a peak of 45.9, but most recent check was 23.6. He reported no more episodes of chest pain. Remained in sinus rhythm overnight. I am discharging him on a very low- dose of carvedilol with holding parameters given his last admission was for bradycardia. He has been instructed follow-up with PCP ALLERGIES Allergies Allergy/AdvReac Type Severity Reaction Status Date / Time Sulfa (Sulfonamide Allergy Rash Verified 01/12/25 12:26 Antibiotics) MEDICATIONS Ambulatory Orders Medication Instructions Recorded Confirmed selegiline HCl 5 mg capsule 5 mg PO BID 06/06/1401/13 carbidopa 25 mg-levodopa 100 mg 2 tab PO BID 05/21/22 01/13/25 tablet aspirin 81 mg tablet,delayed 81 mg PO DAILY #30 tabs 0 05/30/22 01/13/25 release tamsulosin 0.4 mg capsule 0.4 mg PO DAILY #15 caps 01/13/25 polyethylene glycol 3350 17 17 g PO DAILY #119 grams 1 01/13/25 gram/dose oral powder (Miralax) carvedilol 3.125 mg tablet 3.125 mg PO BID 30 days #60 tabs 01/13/25 PHYSICAL EXAM AT DISCHARGE Physical Exam Other/Comments: Constitutional normal general appearance and no apparent distress HENMT normocephalic Eyes PERRL Neck/C-Spine visual inspection normal Chest inspection of chest normal Respiratory breath sounds equal bilaterally and normal respiratory effort Cardiovascular normal heart rate noted and regular rhythm noted Gastrointestinal abdomen normal to inspection Extremities normal to inspection Neurology GCS 15 Speech tangential at times Psychiatry oriented x3 Skin skin color normal Old healing lac on back of head LABS 01/12/25 12:49 01/12/25 12:49 FOLLOW UP Follow Up: With PCP TIME SPENT Time Spent in Discharge (Minutes): 38 Discharge Plan Discharge Patient Disposition: Home, Self Care Condition: Stable Prescriptions: New carvedilol 3.125 mg Tablet 3.125 mg PO BID 30 Days Qty: 60 0RF Continued selegiline HCl 5 MG capsule 5 mg PO BID carbidopa-levodopa 1 TAB tablet 2 tab PO BID Rx Instructions: can take 2 tablets at 8 PM aspirin 81 MG tablet,delayed release (DR/EC) 81 mg PO DAILY Qty: 30 0RF tamsulosin 0.4 MG capsule 0.4 mg PO DAILY Qty: 15 0RF polyethylene glycol 3350 [Miralax] 17 gram/dose powder 17 g PO DAILY Qty: 119 0RF Interventions: Belongings Inventory Last Done: 01/12/25 20:32 Health Concerns: Diagnosis and Hospital Course: You were treated in the emergency department for atrial fibrillation (AFib) with a rapid heart rate (rapid ventricular response, or RVR). Your heart rate is now controlled, and your previously elevated troponin level has returned to normal. AFib can increase the risk of stroke and other heart problems, so ongoing management is important. Medications: * Carvedilol:Take carvedilol as prescribed for heart rate control.Do not take carvedilol if your heart rate is less than 60 beats per minute.Check your pulse before each dose if instructed. Carvedilol may cause dizziness, fatigue, or low blood pressure. If you feel faint, dizzy, or unusually tired, contact your healthcare provider.[5] * Continue all other medications as directed. When to Seek Medical Attention: * Chest pain, severe shortness of breath, fainting, or palpitations that do not resolve. * Signs of bleeding (if on blood thinners): unusual bruising, blood in urine or stool, or prolonged bleeding from cuts. * Symptoms of very slow heart rate: dizziness, confusion, or feeling like you might pass out. Follow-Up: * Schedule a follow-up appointment with your primary care provider within 1-2 weeks. Lifestyle and Self-Care: * Avoid excessive caffeine, alcohol, and [id number] cold medications that can worsen AFib. * Monitor your blood pressure and heart rate as instructed. * Maintain a healthy diet, exercise as tolerated, and avoid tobacco. Additional Instructions: * Bring a list of all your medications to every appointment. * Inform all healthcare providers that you have atrial fibrillation and are taking carvedilol. * If you have any questions or concerns about your medications or symptoms, contact your healthcare provider. Summary: You are being discharged with a history of atrial fibrillation, now stable after an episode of rapid heart rate. You are starting carvedilol for heart rate control; hold the medication if your heart rate is less than 60 bpm. Close follow-up is essential to monitor your response to therapy and reassess your risk of stroke and other complications. Print Language: Portuguese Patient Instructions: Carvedilol Stand Alone Forms: PCP List Follow-up Care: Kaila Vicente MD [Primary Care Provider, Internal Medicine] Vitals documented within 30 minutes of discharge?: Yes
--- NOTE | 2025-01-13 11:43 | PHARMACY PROGRESS NOTE ---
Best Possible Medication History Admit Date and Time: 01/12/25 1822 Home Medications Medication Instructions Recorded Confirmed Type selegiline HCl 5 mg capsule 5 mg PO BID 06/06/1401/13 History carbidopa 25 mg-levodopa 100 mg 2 tab PO BID 05/21/22 01/13/25 History tablet aspirin 81 mg tablet,delayed 81 mg PO DAILY #30 tabs 0 05/30/22 01/13/25 Rx release tamsulosin 0.4 mg capsule 0.4 mg PO DAILY #15 caps 01/13/25 Rx polyethylene glycol 3350 17 17 g PO DAILY #119 grams 1 01/13/25 Rx gram/dose oral powder (Miralax) carvedilol 3.125 mg tablet 3.125 mg PO BID 30 days #60 tabs 01/13/25 Rx Processed by: Pharmacy Medications reviewed in ED?: No Medication History completed: Yes Patient Interview: Completed Secondary Source(s): Pharmacy records and Insurance records [facility] Statement: As the person ultimately responsible for medication therapy, providers are able to order a medication from an existing home medication list in [facility] via the "Reconcile Routine" prior to Confirmation of that medication by user support specialist. Such practice is discouraged except when the physician, in their clinical judgment, deems that a medical need exists for a medication without regard to previous use.
[2025-01-13 15:16] VITALS: BP 147/74; TEMP 97.9; O2SAT 99
== END 2025-01-13 14:07 | disposition home or self-care (01) ==
LOC: ED 12:22 → MS3 12:22
PROVIDERS: ADMIT Nurse Practitioner Acute Care; ATTEND Nurse Practitioner Acute Care